=== PATIENT | male | born 1965 | race Caucasian/White ===

== ENCOUNTER 2023-04-13 14:45 | Outpatient (OUT) | payer BC, SELFPAY ==
[2023-04-13 15:21] LABS: Basophils Percent Auto 0.6 % (0.2-2.0); Eosinophils Absolute Auto 0.1 10^3/uL (0.0-0.7); Eosinophils Percent Auto 1.3 % (0.9-7.0); Hematocrit 44.2 % (42.0-54.0); Hemoglobin 14.2 g/dL (14.0-18.0); Immature Granulocytes Abs Auto 0.03 10^3/uL (0.00-0.03); Immature Granulocytes Pct Auto 0.4 % (0.0-0.5); Lymphocytes Percent Auto 27.5 % (20.5-60.0); Mean Corpuscular HGB Conc 32.1 g/dL (29.9-35.2); Mean Corpuscular Hemoglobin 30.3 pg (25.9-34.0); Mean Corpuscular Volume 94.4 fL (80.0-94.0); Mean Platelet Volume 10.1 fL (9.5-13.5); Monocytes Absolute Auto 0.5 10^3/uL (0.3-0.8); Monocytes Percent Auto 6.5 % (1.7-12.0); Neutrophils Absolute Auto 4.6 10^3/uL (1.4-6.5); Neutrophils Percent Auto 63.7 % (43.0-75.0); Platelet Count 190 10^3/uL (150-450); Red Blood Count 4.68 10^6/uL (4.70-6.10); White Blood Count 7.2 10^3/uL (4.0-11.0)
[2023-04-13 15:39] LABS: Estimated Average Glucose 217 mg/dL; Glycohemoglobin A1C 9.2 % (4.5-6.2)
[2023-04-13 15:50] LABS: Alanine Aminotransferase 56 U/L (16-63); Albumin Level 3.8 g/dL (3.4-5.0); Alkaline Phosphatase 70 U/L (46-116); Aspartate Amino Transferase 37 U/L (15-37); BUN Creatinine Ratio 11.9; Bilirubin Total 0.5 mg/dL (0.2-1.0); Calcium 9.1 mg/dL (8.5-10.1); Carbon Dioxide 28.2 mmol/L (21.0-32.0); Chloride 102 mmol/L (98-107); Chol HDL Ratio 4.5; Cholesterol 149 mg/dL (<=200); Estimated GFR (African America >60 (>=60); Estimated GFR (Non-African Ame >60 (>=60); Free T3 2.85 pg/mL (2.18-3.98); Globulin 3.8 g/dL; Glucose 132 mg/dL (74-106); HDL Cholesterol 33 mg/dL (40-60); Potassium 4.2 mmol/L (3.5-5.1); Sodium 135 mmol/L (136-145); Thyroid Stimulating Hormone 1.589 uIU/mL (0.358-3.740); Total Protein 7.6 g/dL (6.4-8.2); Triglycerides 170 mg/dL (<=150)
== END 2023-04-13 14:46 | disposition home or self-care (01) ==
LOC: LAB 14:51
PROVIDERS: PCP Family Medicine; Visit Provider Family Medicine
DX: Z00.00 Encounter for general adult medical examination without abnormal findings (principal)
CPT/HCPCS: 36415; 80053; 80061; 83036; 84436; 84443; 84481; 85025; G0103

== ENCOUNTER 2023-08-29 17:28 | Emergency (ER) | payer BC, SELFPAY ==
[2023-08-29 17:32] VITALS: BP 155/95; PULSE 106; RESP 18; TEMP 36.9; O2SAT 98; BMI 38.6
--- OUTSIDE RECORDS SUMMARY | 2023-08-29 17:44 | XMS_ITS | CCD ---
Author Name Unknown Address [address] [place] [address] Organization [facility] Care Team Providers Care Furnace Checker Name Role Phone DR JESÚS BEEBE Primary Care Unavailable CONCEPCIÓN, DR ESPINOSA Admitting Unavailable CONCEPCIÓN, DR ESPINOSA Attending Unavailable CONCEPCIÓN, DR ESPINOSA Consulting Unavailable CONCEPCIÓN, DR ESPINOSA Primary Care Unavailable CONCEPCIÓN, DR ESPINOSA Admitting Unavailable CONCEPCIÓN, DR ESPINOSA Attending Unavailable CONCEPCIÓN, DR ESPINOSA Consulting Unavailable CONCEPCIÓN, DR ESPINOSA Primary Care Unavailable FRANKY ROMERO Admitting Unavailable FRANKY ROMERO Attending Unavailable FRANKY ROMERO Consulting Unavailable Jaime Wooten Unavailable Problems Active Problems Problem Classification Problem Date Documented Da te Episodic/Chronic Other upper respiratory disease (1 source) Other specified disorders of nose and nasal sinuses; Translations: [OTH SPEC D/O NOSE NASAL SINUSES] Onset: 05-18-2021 Episodic Unclassified (3 sources) CONTACT W/AND (SUSP) EXPOS COVID-19; Translations: [CONTACT W/AND (SUSP) EXPOS COVID-19] Onset: 05-18-2021 Unclassified (1 source) OTHER SPECIFIED COUGH; Translations: [OTHER SPECIFIED COUGH] Onset: 05-18-2021 Viral infection (1 source) COVID-19; Translations: [COVID-19] Onset: 07-09-2021 Past or Other Problems Problem Classification Problem Date Documented Da te Episodic/Chronic Unclassified (1 source) CONTACT W/AND (SUSP) EXPOS COVID-19; Translations: [CONTACT W/AND (SUSP) EXPOS COVID-19] Onset: 07-07-2021 Varicose veins of lower extremity (4 sources) Venous varices; Translations: [Varicose veins of left lower extremity with other complications] Onset: 03-12-2021 Resolved: 03-12-2021 Episodic Results Test Name Value Interpretation Reference Range Facility Covid-19 PCR (CVDTB)on 06-14 SARS-CoV-2 (COVID-19) RNA ABEL+probe Ql (Unsp spec) Detected Critically abnormal NOT DETECTED [facility] Comment on above: Result Comment: This test is not yet approved or cleared by the [place] FDA. When there are no FDA-approved or cleared tests available, and other criteria are met, FDA can make tests available under an emergency access mechanism called an Emergency Use Authorization (EUA). The EUA for this test is supported by the [place] of Health and Human Service's (HHS's) declaration that circumstances exist to justify the emergency use of in vitro diagnostics for the detection and/or diagnosis of the virus that causes COVID-19. This EUA will remain in effect (meaning this test can be used) for the duration of the COVID-19 declaration justifying emergency of IVDs, unless it is terminated or revoked by FDA (after which the test may no longer be used). Performed By: #### C VDTB #### [facility] [address] [place] [address] Dr. Franky Olguin Covid-19 PCR (CVDTB)on SARS-CoV-2 (COVID-19) RNA ABEL+probe Ql (Unsp spec) Not detected Normal NOT DETECTED [facility] Comment on above: Result Comment: This test is not yet approved or cleared by the [place] FDA. When there are no FDA-approved or cleared tests available, and other criteria are met, FDA can make tests available under an emergency access mechanism called an Emergency Use Authorization (EUA). The EUA for this test is supported by the [place] of Health and Human Service's (HHS's) declaration that circumstances exist to justify the emergency use of in vitro diagnostics for the detection and/or diagnosis of the virus that causes COVID-19. This EUA will remain in effect (meaning this test can be used) for the duration of the COVID-19 declaration justifying emergency of IVDs, unless it is terminated or revoked by FDA (after which the test may no longer be used). When diagnostic testing is negative, the possibility of a false negative should be considered in the context of a patient's recent exposures and the presence of clinical signs and symptoms consistent with SARS-CoV-2. Performed By: #### C VDTB #### [facility] [address] [place] [address] Dr. Franky Olguin CBC AUTO DIFFon 03-25-2021 BASO # 0.1 103/ul Normal 0.0-0.1 [facility] Comment on above: Performed By: #### C BC #### [facility] [address] [place] [address] Dr. Franky Olguin Basophils/100 WBC (Bld) 0.8 % Normal 0.2-2.0 [facility] Comment on above: Performed By: #### C BC #### [facility] [address] [place] [address] Dr. Franky Olguin EO # 0.2 103/ul Normal 0.0-0.7 [facility] Comment on above: Performed By: #### C BC #### [facility] [address] [place] [address] Dr. Franky Olguin Eosinophils/100 WBC (Bld) 2.3 % Normal 0.9-7.0 [facility] Comment on above: Performed By: #### C BC #### [facility] [address] [place] [address] Dr. Franky Olguin Erythrocyte distribution width (RBC) [Ratio] 13.0 % Normal 11.0-15.0 [facility] Comment on above: Performed By: #### C BC #### [facility] [address] [place] [address] Dr. Franky Olguin Hematocrit (Bld) [Volume fraction] 44.9 % Normal 42.0-54.0 [facility] Comment on above: Performed By: #### C BC #### [facility] [address] [place] [address] Dr. Franky Olguin Hemoglobin (Bld) [Mass/Vol] 14.5 g/dL Normal 14.0-18.0 [facility] Comment on above: Performed By: #### C BC #### [facility] [address] [place] [address] Dr. Franky Olguin IG # 0.03 10e3/ul Normal 0.00-0.03 [facility] Comment on above: Performed By: #### C BC #### [facility] [address] [place] [address] Dr. Franky Olguin IG % 0.4 % Normal 0.0-0.5 [facility] Comment on above: Performed By: #### C BC #### [facility] [address] [place] [address] Dr. Franky Olguin LYMPH # 2.3 103/ul Normal 1.2-3.8 [facility] Comment on above: Performed By: #### C BC #### [facility] [address] [place] [address] Dr. Franky Olguin Lymphocytes/100 WBC (Bld) 30.3 % Normal 20.5-60.0 [facility] Comment on above: Performed By: #### C BC #### [facility] [address] [place] [address] Dr. Franky Olguin MANUAL DIFF REQ NO Normal [facility] Comment on above: Performed By: #### C BC #### [facility] [address] [place] [address] Dr. Franky Olguin MCH (RBC) [Entitic mass] 30.5 pg Normal 25.9-34.0 [facility] Comment on above: Performed By: #### C BC #### [facility] [address] [place] [address] Dr. Franky Olguin MCHC (RBC) [Mass/Vol] 32.3 g/dL Normal 29.9-35.2 [facility] Comment on above: Performed By: #### C BC #### [facility] [address] [place] [address] Dr. Franky Olguin MCV (RBC) [Entitic vol] 94.5 fL Critically high 80.0-94.0 [facility] Comment on above: Performed By: #### C BC #### [facility] [address] [place] [address] Dr. Franky Olguin MONO # 0.6 103/ul Normal 0.3-0.8 [facility] Comment on above: Performed By: #### C BC #### [facility] [address] [place] [address] Dr. Franky Olguin Monocytes/100 WBC (Bld) 8.2 % Normal 1.7-12.0 [facility] Comment on above: Performed By: #### C BC #### [facility] [address] [place] [address] Dr. Franky Olguin NEUT # 4.5 103/ul Normal 1.4-6.5 [facility] Comment on above: Performed By: #### C BC #### [facility] [address] [place] [address] Dr. Franky Olguin Neutrophils/100 WBC (Bld) 58.0 % Normal 43.0-75.0 [facility] Comment on above: Performed By: #### C BC #### [facility] [address] [place] [address] Dr. Franky Olguin Platelet mean volume (Bld) [Entitic vol] 9.9 fL Normal 9.5-13.5 [facility] Comment on above: Performed By: #### C BC #### [facility] [address] [place] [address] Dr. Franky Olguin PLT 199 103/ul Normal 150-450 [facility] Comment on above: Performed By: #### C BC #### [facility] [address] [place] [address] Dr. Franky Olguin RBC 4.75 106/ul Normal 4.70-6.10 [facility] Comment on above: Performed By: #### C BC #### [facility] [address] [place] [address] Dr. Franky Olguin WBC 7.7 103/ul Normal 4.0-11.0 [facility] Comment on above: Performed By: #### C BC #### [facility] [address] [place] [address] Dr. Franky Olguin FREE THYROXINE INDEX T7on FTI 1.92 Normal [facility] Comment on above: Performed By: #### L IPID, CMP, T7, TSH #### [facility] [address] [address] [address] Franky Olguin T3U 30.0 % Normal 23.5-40.5 [facility] Comment on above: Performed By: #### L IPID, CMP, T7, TSH #### [facility] [address] [address] [address] Franky Olguin T4 [Mass/Vol] 6.40 ug/dL Normal 5.53-11.00 [facility] Comment on above: Performed By: #### L IPID, CMP, T7, TSH #### [facility] [address] [address] [address] Franky Olguin GLYCOHEMOGLOBIN A1Con 2020 ADA RECOMMENDATION ADA THERAPEUTIC TARGET 6.0 - 7.0 ACTION SUGGESTED > 7.0 Normal [facility] Comment on above: Performed By: #### A 1C #### [facility] [address] [address] [address] Franky Olguin Glucose [Mass/Vol] 151 mg/dL Normal [facility] Comment on above: Performed By: #### A 1C #### [facility] [address] [address] [address] Franky Olguin HbA1c (Bld) [Mass fraction] 6.9 % Critically high <=6.0 [facility] Comment on above: Performed By: #### A 1C #### [facility] [address] [address] [address] Franky Olguin LIPID PROFILEon 03-25-2021 CHOL-HDL RATIO NORM SEE BELOW Normal [facility] Comment on above: Result Comment: 3.3 - 4.4 LOW RISK 4.4 - 7.1 AVERAGE RISK 7.1 - 11.0 MODERATE RISK >11.0 HIGH RISK Performed By: #### L IPID, CMP, T7, TSH #### [facility] [address] [address] [address] Franky Olguin Cholesterol [Mass/Vol] 167 mg/dL Normal <=200 [facility] Comment on above: Performed By: #### L IPID, CMP, T7, TSH #### [facility] [address] [address] [address] Franky Olguin Cholesterol in HDL [Mass/Vol] 37 mg/dL Normal [facility] Comment on above: Performed By: #### L IPID, CMP, T7, TSH #### [facility] [address] [address] [address] Franky Olguin Cholesterol in LDL [Mass/Vol] 93.4 mg/dL Normal [facility] Comment on above: Performed By: #### L IPID, CMP, T7, TSH #### [facility] [address] [address] [address] Franky Olguin Cholesterol.total/Cho lesterol in HDL [Mass ratio] 4.5 {ratio} Normal [facility] Comment on above: Performed By: #### L IPID, CMP, T7, TSH #### [facility] [address] [address] [address] Franky Olguin HDL NORMAL > or = 60 mg/dl - LOW CARDIOVASCULAR RISK <40 mg/dl - HIGH CARDIOVASCULAR RISK Normal [facility] Comment on above: Performed By: #### L IPID, CMP, T7, TSH #### [facility] [address] [address] [address] Franky Olguin LDL CALC NORMAL SEE BELOW Normal [facility] Comment on above: Result Comment: <100 mg/dl OPTIMAL 100 - 129 mg/dl NEAR OR ABOVE OPTIMAL 130 - 159 mg/dl BORDERLINE HIGH 160 - 189 mg/dl HIGH >190 mg/dl VERY HIGH Performed By: #### L IPID, CMP, T7, TSH #### [facility] [address] [address] [address] Franky Olguin Triglyceride [Mass/Vol] 183 mg/dL Critically high <=150 [facility] Comment on above: Performed By: #### L IPID, CMP, T7, TSH #### [facility] [address] [address] [address] Franky Olguin VLDL CALC 36.6 mg/dL Normal [facility] Comment on above: Performed By: #### L IPID, CMP, T7, TSH #### [facility] [address] [place] [address] Dr. Franky Olguin PROF 14(COMP METB)on 021 Albumin [Mass/Vol] 3.9 g/dL Normal 3.5-5.0 [facility] Comment on above: Performed By: #### L IPID, CMP, T7, TSH #### [facility] [address] [place] [address] Dr. Franky Olguin Albumin/Globulin [Mass ratio] 1.0 {ratio} Normal [facility] Comment on above: Performed By: #### L IPID, CMP, T7, TSH #### [facility] [address] [place] [address] Dr. Franky Olguin ALP [Catalytic activity/Vol] 68 U/L Normal 38-126 [facility] Comment on above: Performed By: #### L IPID, CMP, T7, TSH #### [facility] [address] [place] [address] Dr. Franky Olguin ALT [Catalytic activity/Vol] 89 U/L Critically high 21-72 [facility] Comment on above: Performed By: #### L IPID, CMP, T7, TSH #### [facility] [address] [place] [address] Dr. Franky Olguin Anion gap [Moles/Vol] 13.1 mmol/L Normal [facility] Comment on above: Performed By: #### L IPID, CMP, T7, TSH #### [facility] [address] [place] [address] Dr. Franky Olguin AST [Catalytic activity/Vol] 56 U/L Normal 17-59 [facility] Comment on above: Performed By: #### L IPID, CMP, T7, TSH #### [facility] [address] [place] [address] Dr. Franky Olguin Bilirubin [Mass/Vol] 0.7 mg/dL Normal 0.2-1.3 [facility] Comment on above: Performed By: #### L IPID, CMP, T7, TSH #### [facility] [address] [place] [address] Dr. Franky Olguin Calcium [Mass/Vol] 9.5 mg/dL Normal 8.4-10.2 [facility] Comment on above: Performed By: #### L IPID, CMP, T7, TSH #### [facility] [address] [address] [address] Franky Olguin Chloride [Moles/Vol] 104 mmol/L Normal 98-107 [facility] Comment on above: Performed By: #### L IPID, CMP, T7, TSH #### [facility] [address] [address] [address] Franky Olguin CO2 [Moles/Vol] 25.1 mmol/L Normal 22.0-30.0 [facility] Comment on above: Performed By: #### L IPID, CMP, T7, TSH #### [facility] [address] [place] [address] Dr. Franky Olguin Creatinine [Mass/Vol] 1.19 mg/dL Normal 0.66-1.25 [facility] Comment on above: Performed By: #### L IPID, CMP, T7, TSH #### [facility] [address] [place] [address] Dr. Franky Olguin EGFR-AF MONEGASQUE >60 Normal >=60 [facility] Comment on above: Performed By: #### L IPID, CMP, T7, TSH #### [facility] [address] [place] [address] Dr. Franky Olguin EGFR-NON AF MONEGASQUE >60 Normal >=60 [facility] Comment on above: Performed By: #### L IPID, CMP, T7, TSH #### [facility] [address] [address] [address] Franky Olguin Globulin (S) [Mass/Vol] 4.0 g/dL Normal [facility] Comment on above: Performed By: #### L IPID, CMP, T7, TSH #### [facility] [address] [address] [address] Franky Olguin Glucose [Mass/Vol] 133 mg/dL Critically high 74-106 [facility] Comment on above: Performed By: #### L IPID, CMP, T7, TSH #### [facility] [address] [place] [address] Dr. Franky Olguin Potassium [Moles/Vol] 4.2 mmol/L Normal 3.4-5.0 [facility] Comment on above: Performed By: #### L IPID, CMP, T7, TSH #### [facility] [address] [place] [address] Dr. Franky Olguin Protein [Mass/Vol] 7.9 g/dL Normal 6.1-8.2 [facility] Comment on above: Performed By: #### L IPID, CMP, T7, TSH #### [facility] [address] [place] [address] Dr. Franky Olguin Sodium [Moles/Vol] 138 mmol/L Normal 137-145 [facility] Comment on above: Performed By: #### L IPID, CMP, T7, TSH #### [facility] [address] [place] [address] Dr. Franky Olguin Urea nitrogen [Mass/Vol] 19.0 mg/dL Normal 9.0-20.0 [facility] Comment on above: Performed By: #### L IPID, CMP, T7, TSH #### [facility] [address] [place] [address] Dr. Franky Olguin Urea nitrogen/Creatinine [Mass ratio] 16.0 mg/mg Normal [facility] Comment on above: Performed By: #### L IPID, CMP, T7, TSH #### [facility] [address] [place] [address] Dr. Franky Olguin TSHon 03-25-2021 TSH 4.571 uIU/mL Normal 0.470-4.680 [facility] Comment on above: Performed By: #### L IPID, CMP, T7, TSH #### [facility] [address] [place] [address] Dr. Franky Olguin TSH RANGE SEE BELOW Normal [facility] Comment on above: Result Comment: <0.3 4 UIU/ml HYPERTHYROID 0.34-5.60 UIU/ml EUTHYROID >5.60 UIU/ml HYPOTHYROID Performed By: #### L IPID, CMP, T7, TSH #### [facility] [address] [address] [address] Franky Olguin US venous duplex LE LTon US venous duplex LE LT [facility] [place] [address] [place], [place] [id number] Ultrasound Report Signed Patient: Holden Askew MR#: [id number] 98 : 1965 Acct:[id number] Age/Sex: 56 / M ADM Date: 03/12/21 Loc: [facility] ER Room: Type: [facility] Attending Dr: Jaime Wooten MD Ordering Provider: Jaime Wooten MD Date of Service: 03/12/21 US/US venous duplex LE LT: LLE FULL FUNCTION I83.812 Copies to: Jaime Wooten MD LEFT LOWER EXTREMITY VENOUS DUPLEX INDICATION: Symptomatic varicose veins Unilateral left lower extremity venous duplex Doppler study was obtained utilizing B-mode, color- flow and spectral Doppler. FINDINGS: The left common femoral, femoral, and popliteal veins showed adequate compressibility, color-flow and augmentation. The left posterior tibial and peroneal veins were compressible, as well as proximal greater saphenous vein. The contralateral right common femoral vein was compressible with color-flow and augmentation. US/US venous duplex LE LT IMPRESSION: NO EVIDENCE OF DEEP VENOUS THROMBOSIS IN THE LEFT LOWER EXTREMITY. NO SUPERFICIAL THROMBOPHLEBITIS WAS NOTED. No reflux was identified in the left lower extremity. There was some thrombus identified in the lesser saphenous vein proximally to distally in the calf. The left greater saphenous vein was patent from the groin to the ankle. Impression dictated by: Jaime Wooten MD03/18/2021 3:20 PM Dictation Location: [place] [address] Tech: Kamala Wells Transcribed By: ABRAHAN 03/18/21 1520 Dictated By: Jaime Wooten MD 03/18/21 1518 Signed By: 03/18/21 1520 [facility] Auth for Release of Medical Recordson 02-02-2021 Auth for Release of Medical Records [id number] 1.00CD:127 Normal [facility] Formson 01-28-2021 Forms [id number] #1.00CD:127 Normal [facility] [employer] 01-21-2021 Forms [id number] #1.00CD:127 Normal [facility] Screenson 12-23-2020 Screens [id number] #1.00CD:127 Normal [facility] Screens [id number] #1.00CD:127 Normal [facility] Ambulatory Clinical Summaryo 12-18-2020 Ambulatory Clinical Summary {[id number] Normal [facility] [employer] 12-18-2020 Forms [id number] #1.00CD:127 Normal [facility] General Surgery Office/Clini c Noteon 12-17-2020 General Surgery Office/Clinic Note HPI Staff New pt, self ref (saw Dr. Hunter in the past ) sima leg pain left leg pain worse needs hose rx Dr. Jones did surgery for venous malformation in 1989's History of Present Illness Mr. Askew comes in for evaluation of recurrent varicose veins mainly in his left ankle area. He is complaining of increasing pain and swelling in the left leg/mainly ankle, which is worse as the day goes along. 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 He has consistently worn support stockings since about 1989 when he had a venous malformation of the left ankle area resected by Dr. Jones. He has been using [id number] hose for several years now and he thinks these do not work as well as the prescription hose I gave him when I saw him back in 2006. He has no history of deep vein thrombosis or thrombophlebitis. A duplex scan from 2006 showed no evidence of DVT. There were superficial varices around the left ankle noted to be coming from the anterior tibial vein. The greater saphenous vein was competent. Review of Systems PHQ Score Initial Depression Screen Score: 0 ROS - Provider Constitutional: no fever, no sweats, no weight loss. Eyes: no glasses, no blurred vision, no visual loss. ENMT: no dentures, no hoarseness, no swallowing difficulties, no hearing loss, no ear infection(s), no nose bleeds. Cardiovascular: normal blood pressure, no chest pain, regular heartbeat, no heart murmur. Respiratory: no shortness of breath, no cough, no asthma, no wheezing. Gastrointestinal: no nausea, no vomiting, no diarrhea, no constipation, no blood in stool, no change in bowel habits, no abdominal pain, no hepatitis. Genitourinary: no kidney stones, no urine infection, no dysuria. Musculoskeletal: yes pain, yes weakness. Skin: no changing moles, no rash, no skin lumps. Neurologic: no seizures, no epilepsy, no headache. Psychiatric: no emotional or psychiatric problem. Endocrine: no thyroid problems no diabetes Heme/Lymph: no bleeding problems, no anemia, no blood clots, no transfusions. Allergy/Immunologic: no swollen lymph nodes/glands, no IV drug abuse. Other: Additional ROS info: Except as noted in the above Review of Systems and in the History of Present Illness, all other systems have been reviewed and are negative or noncontributory. Physical Exam Vitals & Measurements T: 36.1 ?C (Temporal Artery) HR: 103(Peripheral) RR: 20 BP: 138/99 SpO2: 98% HT: 187.96 cm HT: 188.0 cm WT: 140.9 kg WT: 140.9 kg BMI: 39.88 General: Alert and oriented, no acute distress Eye: PERRLA. Extraocular movements are intact. HENT: Normocephalic. Normal hearing. Neck: Supple. Nontender. No lymphadenopathy. No carotid bruits. Respiratory: Lungs clear bilaterally. Nonlabored respirations. Breath sounds equal. Cardiovascular: Normal rate. Regular rhythm. No murmur. Vascular: See scanned vascular exam sheet and photographs. Bulging varicose veins up to 1.5 cm in the posterior left leg. There is also a large soft mass of the left anterior lateral ankle about 3 x 4 cm consistent with a large venous varix/malformation. This goes away with being in the supine position. It is nontender and nonerythematous. There are no stasis changes of the medial ankle. There is scarring consistent with his past history of surgery in the anterior lateral left ankle. There is mild edema of the left ankle as compared to the right. Pedal pulses are intact bilaterally. There is good hair growth on the toes bilaterally. Musculoskeletal: Normal range of motion. Normal gait. Integumentary: Warm and dry. Neurologic: Alert and oriented. No focal deficits. Cognition and speech: Oriented. Speech clear and coherent. Functional cognition intact. Psychiatric: Cooperative. Appropriate mood and affect. Normal judgment. Assessment/Plan 1. 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 Conservative treatment was recommended, which includes elevation of the lower extremities when possible, avoidance of prolonged standing, daily exercise, weight loss if indicated, and use of a prescription pressure gradient support stocking, not only to alleviate symptoms, but also to help prevent further formation of varicosities. I did recommend a venous insufficiency study of the left lower extremity. I told the patient I thought his symptoms would be progressive and that surgery would likely be indicated either as staged combination of laser surgery and phlebectomy/resectio n of the venous malformation, or phlebectomy and resection of the venous malformation initially. At present the patient would like to wait on the study and possible treatment and just go into the support hose. I will keep him off work for a few days because of the aching and swelling he is having in the ankle and try to get him in prescription hose as soon as possible. I did also tel (more content not included)... Normal [facility] Comment on above: Result Comment: Elec tronically Signed By: ERICA CARRERA, Cecilia Jeffrey\.waqas\Date and Time Signed: 12/17/20 13:46 EDT Patient Correspondenceon Patient Correspondence [id number] #[id number]:127 Normal [facility] Retail - Clinical Noteon Retail - Clinical Note [id number] #[id number]:127 Normal [facility] Vital Signs Date Time Vital Sign Value Performing Clinician Facility 03-12-2021 13:30-0400 Body height 185.42 cm Jaime Wooten Other [facility] Other 03-12-2021 13:30-0400 Body mass index (BMI) [Ratio] 40.63 kg/m2 Jaime Wooten Other [facility] Other 03-12-2021 13:30-0400 Body weight 139.71 kg Jaime Wooten Other [facility] Other 03-12-2021 13:30-0400 Diastolic blood pressure 118 mm[Hg] Jaime Wooten Other [facility] Other 03-12-2021 13:30-0400 Systolic blood pressure 161 mm[Hg] Jaime Wooten Other [facility] Other Encounters Encounter Date Encounter Type Care Provider Facility Start: 07-07-2021 End: 07-07-[address] JESÚS BEEBE Facility:[facility] Start: 05-13-2021 End: 05-13-[address] JESÚS BEEBE Facility:[facility] Start: 04-03-2021 Encounter for genera l adult medical examination without abnormal findings DR JESÚS BEEBE [facility] Start: 03-25-2021 End: 03-26-[address] JESÚS BEEBE Facility:[facility] Start: 03-25-2021 End: 03-26-2021 Encounter for general adult medical examination without abnormal findings DR JESÚS BEEBE Facility:[facility] Start: 03-12-2021 Office outpatient vi sit 15 minutes Jaime BERNSTEIN Vascular Surgery Procedures Date Procedure Procedure Detail Performing Clinician Start: 03-25-[address] GRETCHEN BEEBE Comment on above: Performed By: #### P [facility] #### [facility] [address] [place] [address] Dr. Franky Olguin Payers Date Payer Category Payer Unknown [id number] 1965 Unknown [id number] [id number] 1965 Unknown [id number] [id number] [id number] 1959 Unknown [id number] Social History Date Type Detail Facility Sex Assigned At [facility] Other Evaluation note 03-12-2021 Note Date & Type Note Facility 03-12-2021 Evaluation note Encounter Date Diagnosis Assessment Notes Feb, Symptomatic varicose veins of left lower extremity (ICD-10 - I83.892) We reviewed the patient's full functional venous duplex study with him. There is no evidence of any DVT. The patient does not have any reflux disease whatsoever in the bilateral lower extremity veins. Without a doubt this patient does have symptomatic varicose veins. They should be treated with weight loss exercise and compression stockings. Moisturizer therapy would also be good. We can also consider consider sclerotherapy injections in the future. I do not normally ever proceed with [facility] paperwork for symptomatic varicose veins without any venous hypertension and/or reflux. There are 70 million Americans who suffer from this. I recommend this patient seek out his PCP for advice with regards to [place] paperwork. I will be happy to see the patient in the future for any consideration for sclerotherapy if his symptoms progress and/or his varicosities merit this approach. Weight loss would also benefit this patient as he is a BMI of 40. Weight loss would significantly improve leg symptoms in this patient. Feb, Varicose veins of left lower extremity with pain (ICD-10 - I83.812) [facility] Other History general Narrative - Reported Note Date & Type Note Facility History general Narrative - Reported Type Medical History Varicose veins Surgical History vein procedure (Dr. Jones) [facility] Other Summary Purpose Family History No Family History Records FoundNo Family History Records FoundNo Family History Records Found Advance Directives No Advanced Directives Records FoundNo Advanced Directives Records FoundNo Advanced Directives Records Found Additional Source Comments (unrecognized sect ion and content) No Status Records FoundNo Status Records FoundNo Status Records Found INFORMATION SOURCE (unrecogn ized section and content) DATE CREATED AUTHOR 02/03/2021 Derek Shepherd [facility] DATE CREATED AUTHOR AUTHOR'S ORGANIZ ATION 07/07/2021 [facility] DATE CREATED AUTHOR AUTHOR'S ORGANIZ ATION 07/10/2021 [facility] REASON FOR VISIT (unrecogniz ed section and content) VASC 1 WK FOLLOW UP; FULL FU NCTIONAL VENOUS DUPLEX LEFT LEG 12P FOR RECORDS PERTAINING TO PATIENTS WHO ARE OR HAVE BEEN ENROLLED IN A CHEMICAL DEPENDENCY/SUBSTANCEABUSE PROGRAM, SOME INFORMATION MAY BE OMITTED. This clinical summary was aggregated from multiple sources. Caution should be exercised in using it in the provision of clinical care. This summary normalizes information from multiple sources, and as a consequence, information in this document may materially change the coding, format and clinical context of patient data. In addition, data may be omitted in some cases. CLINICAL DECISIONS SHOULD BE BASED ON THE PRIMARY CLINICAL RECORDS. [facility]. provides no warranty or guarantee of the accuracy or completeness of information in this document.
--- NOTE | 2023-08-29 18:03 | ED.SKABFB1 ---
Documented by User: SEAN Rivera 08/29/23 18:22 HPI - Skin/Abscess/Foreign Bdy General Chief complaint: Skin/Abscess/Foreign Body Stated complaint: Abscess, Blood in Stool Time Seen by Provider: 08/29/23 17:45 Source: patient Mode of arrival: walk-in Limitations: no limitations History of Present Illness HPI narrative: 58-year-old male presents to the emergency department with complaint of swelling, itching to his rectal area. Onset 2 days ago. Has been applying Preparation H without improvement. He denies any pain, tenderness, bleeding, fever, chills, drainage. Quality:?swelling, itchy Severity:?mild Timing:?2 days, constant Context: Normal setting and activity? Modifying factors:?as above Associated symptoms: itching Related Data Home Medications Medication Instructions Recorded Confirmed lisinopril 20 mg tablet 20 mg PO DAILY 08/29/23 08/29/23 metformin 500 mg tablet 500 mg PO QID 08/29/23 08/29/23 Previous Rx's Medication Instructions Recorded hydrocortisone acetate 25 mg 25 mg DC BID PRN hemorrhoids 2 08/29/23 rectal suppository (Anusol-HC) weeks #12 ea Allergies Allergy/AdvReac Type Severity Reaction Status Date / Time No Known Drug Allergies Allergy Verified 08/29/23 17:32 Review of Systems ROS Constitutional Denies: fever or chills Gastrointestinal Reports: rectal swelling and rectal itching; Denies: abdominal pain, nausea, vomiting, diarrhea, constipation or blood in stool Musculoskeletal Denies: back pain Integumentary/Breast Reports: [facility] Medical History (Updated 08/29/23 @ 18:09 by SEAN Rivera) HTN (hypertension) ?I10 - Essential (primary) hypertension (ICD-10) Social History (Updated 08/29/23 @ 18:10 by SEAN Rivera) Are you now , , , , never or living with a partner: Exam Constitutional Vital Signs, click to edit/add: Last Vital Signs Temp 98.5 F 08/29/23 17:32 Pulse 106 H 08/29/23 17:32 Resp 18 08/29/23 17:32 BP 155/95 H 08/29/23 17:32 Pulse Ox 98 08/29/23 17:32 Documenting provider has reviewed patient's vital signs: yes Common normals: no apparent distress, oriented x3, alert and well nourished HENAL Common normals: normocephalic and head/scalp atraumatic GI Common normals: soft to palpation and non-tender Rectal Exam - Male: normal sphincter tone and hemorrhoids Other: 8 o'clock position. Mainly flesh colored with punctate, purplish center. Nontender. No redness. Hemorrhoid is soft, external, nonreducible Neuro Common normals: oriented x3 Sensorium/orientation: awake and alert Gait (neuro): normal gait Psych Common normals: mental status grossly normal, thought process normal and affect normal Course Vital Signs Vital signs: Vital Signs Temperature 98.5 F 08/29/23 17:32 Pulse Rate 106 H 08/29/23 17:32 Respiratory Rate 18 08/29/23 17:32 Blood Pressure 155/95 H 08/29/23 17:32 Pulse Oximetry 98 08/29/23 17:32 Temperature 98.5 F 08/29/23 17:32 Pulse Rate 106 H 08/29/23 17:32 Respiratory Rate 18 08/29/23 17:32 Blood Pressure 155/95 H 08/29/23 17:32 Pulse Oximetry 98 08/29/23 17:32 MDM - Skin/Abscess/Foreign Bdy MDM Narrative Medical decision making narrative: This a pleasant 58-year-old male who presents to the emergency department complaint of swelling and itching to his rectal region. Onset about 2 days ago. Has been applying Preparation H without improvement. He denies any pain, bleeding, fever, chills. On arrival, afebrile, vital signs are stable On exam, nontoxic, well-appearing patient in no distress. Patient has an external hemorrhoid at about the 8 o'clock position. Mainly flesh-colored, swollen, soft. There is centralized, purpleish area. There is no tenderness, bleeding, firmness to the hemorrhoid. It is not reducible. Favor external hemorrhoid. Thrombosed hemorrhoid less likely based on physical exam Rectal bleeding less likely based on physical exam Disposition ? The patient was discharged. Plan: Patient will be discharged to home. Condition at time of disposition: stable Prescription sent to his pharmacy for Anusol Advised to follow up with Dr. Tucker, surgery. Address and phone number placed on discharge paperwork. Advised to return for any worsening and/or development of new, concerning signs or symptoms PLEASE NOTE: Portions of the medical record may have been produced using electronic workday consultant and may contain errors with respect to translation of words which may not have been identified prior to finalization of the chart. Medical Records Attestation: I reviewed the patient's medical records. Discharge Plan Discharge Stand Alone Forms: Portal Instructions Chief Complaint: Skin/Abscess/Foreign Body Clinical Impression: External hemorrhoid, Rectal itching Patient Disposition: Home, Self-Care Time of Disposition Decision: 17:57 Condition: Good Mode of Transportation: Private Vehicle Prescriptions / Home Meds: New hydrocortisone acetate [Anusol-HC] 25 mg suppository 25 mg DC BID PRN (Reason: hemorrhoids) 14 Days Qty: 12 0RF No Action lisinopril 20 mg tablet 20 mg PO DAILY metformin 500 mg tablet 500 mg PO QID Instructions: Hemorrhoids (ED) Referrals: Emanuel Tucker MD [Physician] - 1 week Discharge Date/Time: 08/29/23 18:20 Documented by User: Daniel Dumont MD 08/29/23 20:09 HPI - Skin/Abscess/Foreign Bdy General Chief complaint: Skin/Abscess/Foreign Body Stated complaint: Abscess, Blood in Stool Time Seen by Provider: 08/29/23 17:45 Related Data Home Medications Medication Instructions Recorded Confirmed lisinopril 20 mg tablet 20 mg PO DAILY 08/29/23 08/29/23 metformin 500 mg tablet 500 mg PO QID 08/29/23 08/29/23 Previous Rx's Medication Instructions Recorded hydrocortisone acetate 25 mg 25 mg DC BID PRN hemorrhoids 2 08/29/23 rectal suppository (Anusol-HC) weeks #12 ea Allergies Allergy/AdvReac Type Severity Reaction Status Date / Time No Known Drug Allergies Allergy Verified 08/29/23 17:32 [facility] Medical History (Updated 08/29/23 @ 18:09 by SEAN Rivera) HTN (hypertension) ?I10 - Essential (primary) hypertension (ICD-10) Social History (Updated 08/29/23 @ 18:10 by SEAN Rivera) Are you now , , , , never or living with a partner: Exam Constitutional Vital Signs, click to edit/add: Last Vital Signs Temp 98.5 F 08/29/23 17:32 Pulse 106 H 08/29/23 17:32 Resp 18 08/29/23 17:32 BP 155/95 H 08/29/23 17:32 Pulse Ox 98 08/29/23 17:32 Course Vital Signs Vital signs: Vital Signs Temperature 98.5 F 08/29/23 17:32 Pulse Rate 106 H 08/29/23 17:32 Respiratory Rate 18 08/29/23 17:32 Blood Pressure 155/95 H 08/29/23 17:32 Pulse Oximetry 98 08/29/23 17:32 Temperature 98.5 F 08/29/23 17:32 Pulse Rate 106 H 08/29/23 17:32 Respiratory Rate 18 08/29/23 17:32 Blood Pressure 155/95 H 08/29/23 17:32 Pulse Oximetry 98 08/29/23 17:32 MDM - Skin/Abscess/Foreign Bdy MDM Narrative Medical decision making narrative: This a pleasant 58-year-old male who presents to the emergency department complaint of swelling and itching to his rectal region. Onset about 2 days ago. Has been applying Preparation H without improvement. He denies any pain, bleeding, fever, chills. On arrival, afebrile, vital signs are stable On exam, nontoxic, well-appearing patient in no distress. Patient has an external hemorrhoid at about the 8 o'clock position. Mainly flesh-colored, swollen, soft. There is centralized, purpleish area. There is no tenderness, bleeding, firmness to the hemorrhoid. It is not reducible. Favor external hemorrhoid. Thrombosed hemorrhoid less likely based on physical exam Rectal bleeding less likely based on physical exam Disposition ? The patient was discharged. Plan: Patient will be discharged to home. Condition at time of disposition: stable Prescription sent to his pharmacy for Anusol Advised to follow up with Dr. Tucker, surgery. Address and phone number placed on discharge paperwork. Advised to return for any worsening and/or development of new, concerning signs or symptoms PLEASE NOTE: Portions of the medical record may have been produced using electronic workday consultant and may contain errors with respect to translation of words which may not have been identified prior to finalization of the chart. I, Dr Dumont, have reviewed the above progress note and course of action in the ER; agree with the above. I have gone over history and physical, and discussed disposition and treatment plan with the patient. Discharge Plan Discharge Stand Alone Forms: Portal Instructions Chief Complaint: Skin/Abscess/Foreign Body Clinical Impression: External hemorrhoid, Rectal itching Patient Disposition: Home, Self-Care Time of Disposition Decision: 17:57 Condition: Good Mode of Transportation: Private Vehicle Prescriptions / Home Meds: New hydrocortisone acetate [Anusol-HC] 25 mg suppository 25 mg DC BID PRN (Reason: hemorrhoids) 14 Days Qty: 12 0RF No Action lisinopril 20 mg tablet 20 mg PO DAILY metformin 500 mg tablet 500 mg PO QID Instructions: Hemorrhoids (ED) Referrals: Emanuel Tucker MD [Physician] - 1 week Discharge Date/Time: 08/29/23 18:20
== END 2023-08-29 18:20 | disposition home or self-care (01) ==
PROVIDERS: Emergency Provider Emergency Medicine; PCP Family Medicine
DX: K64.4 Residual hemorrhoidal skin tags (principal); L29.0 Pruritus ani; Z79.899 Other long term (current) drug therapy; Z79.84 Long term (current) use of oral hypoglycemic drugs; I10 Essential (primary) hypertension
CPT/HCPCS: 99283

== ENCOUNTER 2023-12-12 10:03 | Outpatient (OUT) | payer BC, SELFPAY ==
--- OUTSIDE RECORDS SUMMARY | 2023-12-12 10:28 | XMS_ITS | CCD ---
Author Organization [facility] Care Team Providers Care Last Pattern Grader Name Role Phone DR JESÚS BEEBE Primary Care Unavailable DR JESÚS BEEBE Admitting Unavailable CONCEPCIÓN, DR ESPINOSA Attending Unavailable CONCEPCIÓN, DR ESPINOSA Consulting Unavailable DR JESÚS BEEBE Primary Care Unavailable DR JESÚS BEEBE Admitting Unavailable CONCEPCIÓN, DR ESPINOSA Attending Unavailable CONCEPCIÓN, DR ESPINOSA Consulting Unavailable DR JESÚS BEEBE Primary Care Unavailable FRANKY ROMERO Admitting Unavailable [...] spec) Detected Critically abnormal NOT DETECTED [facility] Comment on above: Result Comment: This test is not yet approved or cleared by the [place] FDA. When there are no FDA-approved or cleared tests available, and other criteria are met, FDA can make tests available under an emergency access mechanism called an Emergency Use Authorization (EUA). The EUA for this test is supported by the Auto Body Detailer of Health and Human Service's (HHS's) declaration [...] longer be used). Performed By: #### C VDTBH #### [facility] [address] [address] [address] Franky Olguin [facility]on SARS-CoV-2 (COVID-19) RNA ABEL+probe Ql (Unsp spec) Not detected Normal NOT DETECTED [facility] Comment on above: Result Comment: This test is not yet approved or cleared by the [place] FDA. When there are no FDA-approved or cleared tests available, and other criteria are met, FDA can make tests available under an emergency access mechanism called an Emergency Use Authorization (EUA). The EUA for this test is supported by the [place] of Health and Human Service's (HHS's) declaration [...] consistent with SARS-CoV-2. Performed By: #### C VDTBH #### [facility] [address] [place] [address] Dr. Franky Olguin CBC AUTO DIFFon 03-25-2021 BASO # 0.1 103/ul Normal 0.0-0.1 [facility] Comment on above: Performed By: #### C BC #### [facility] [address] [place] [address] Dr. Franky Olguni Basophils/100 WBC (Bld) 0.8 % Normal 0.2-2.0 [facility] Comment on above: Performed By: #### C BC #### [facility] [address] [place] [address] Dr. Franky Olguin EO # 0.2 103/ul Normal 0.0-0.7 [facility] Comment on above: Performed By: #### C BC #### [facility] [address] [place] [address] Dr. Franky Olguin Eosinophils/100 WBC (Bld) 2.3 % Normal 0.9-7.0 [facility] Comment on above: Performed By: #### C BC #### [facility] [address] [place] [address] Dr. Franky Olguin Erythrocyte distribution width (RBC) [Ratio] 13.0 % Normal 11.0-15.0 [facility] Comment on above: Performed By: #### C BC #### [facility] [address] [place] [address] Dr. Franky Olguin Hematocrit (Bld) [Volume fraction] 44.9 % Normal 42.0-54.0 [facility] Comment on above: Performed By: #### C BC #### [facility] [address] [place] [address] Dr. Franky Olguin Hemoglobin (Bld) [Mass/Vol] 14.5 g/dL Normal 14.0-18.0 [facility] Comment on above: Performed By: #### C BC #### [facility] [address] [place] [address] Dr. Franky Olguin IG # 0.03 10e3/ul Normal 0.00-0.03 [facility] Comment on above: Performed By: #### C BC #### [facility] [address] [place] [address] Dr. Franky Olguin IG % 0.4 % Normal 0.0-0.5 [facility] Comment on above: Performed By: #### C BC #### [facility] [address] [place] [address] Dr. Franky Olguin LYMPH # 2.3 103/ul Normal 1.2-3.8 [facility] Comment on above: Performed By: #### C BC #### [facility] [address] [place] [address] Dr. Franky Olguin Lymphocytes/100 WBC (Bld) 30.3 % Normal 20.5-60.0 [facility] Comment on above: Performed By: #### C BC #### [facility] [address] [place] [address] Dr. Franky Olguin MANUAL DIFF REQ NO Normal [facility] Comment on above: Performed By: #### C BC #### [facility] [address] [place] [address] Dr. Franky Olguin MCH (RBC) [Entitic mass] 30.5 pg Normal 25.9-34.0 [facility] Comment on above: Performed By: #### C BC #### [facility] [address] [place] [address] Dr. Franky Olguin MCHC (RBC) [Mass/Vol] 32.3 g/dL Normal 29.9-35.2 [facility] Comment on above: Performed By: #### C BC #### [facility] [address] [place] [address] Dr. Franky Olguin MCV (RBC) [Entitic vol] 94.5 fL Critically high 80.0-94.0 [facility] Comment on above: Performed By: #### C BC #### [facility] [address] [place] [address] Dr. Franky Olguin MONO # 0.6 103/ul Normal 0.3-0.8 [facility] Comment on above: Performed By: #### C BC #### [facility] [address] [place] [address] Dr. Franky Olguin Monocytes/100 WBC (Bld) 8.2 % Normal 1.7-12.0 [facility] Comment on above: Performed By: #### C BC #### [facility] [address] [place] [address] Dr. Franky Olguin NEUT # 4.5 103/ul Normal 1.4-6.5 [facility] Comment on above: Performed By: #### C BC #### [facility] [address] [place] [address] Dr. Franky Olguin Neutrophils/100 WBC (Bld) 58.0 % Normal 43.0-75.0 [facility] Comment on above: Performed By: #### C BC #### [facility] [address] [place] [address] Dr. Franky Olguin Platelet mean volume (Bld) [Entitic vol] 9.9 fL Normal 9.5-13.5 [facility] Comment on above: Performed By: #### C BC #### [facility] [address] [place] [address] Dr. Franky Olguin PLT 199 103/ul Normal 150-450 [facility] Comment on above: Performed By: #### C BC #### [facility] [address] [place] [address] Dr. Franky Olguin RBC 4.75 106/ul Normal 4.70-6.10 [facility] Comment on above: Performed By: #### C BC #### [facility] [address] [place] [address] Dr. Franky Olguin WBC 7.7 103/ul Normal 4.0-11.0 [facility] Comment on above: Performed By: #### C BC #### [facility] [address] [place] [address] Dr. Franky Olguin FREE THYROXINE INDEX T7on FTI 1.92 Normal [facility] Comment on above: Performed By: #### L IPID, CMP, T7, TSH #### [facility] [address] [place] [address] Dr. Franky Olguin T3U 30.0 % Normal 23.5-40.5 [facility] Comment on above: Performed By: #### L IPID, CMP, T7, TSH #### [facility] [address] [address] [address] Franky Olguin T4 [Mass/Vol] 6.40 ug/dL Normal 5.53-11.00 [facility] Comment on above: Performed By: #### L IPID, CMP, T7, TSH #### [facility] [address] [address] [address] Franky Olguin GLYCOHEMOGLOBIN A1Con 2020 ADA RECOMMENDATION ADA THERAPEUTIC TARGET 6.0 - 7.0 ACTION SUGGESTED > 7.0 Normal [facility] Comment on above: Performed By: #### A 1C #### [facility] [address] [place] [address] Dr. Franky Olguin Glucose [Mass/Vol] 151 mg/dL Normal [facility] Comment on above: Performed By: #### A 1C #### [facility] [address] [address] [address] Franky Olguin HbA1c (Bld) [Mass fraction] 6.9 % Critically high <=6.0 [facility] Comment on above: Performed By: #### A 1C #### [facility] [address] [place] [address] Dr. Franky Olguin LIPID PROFILEon 03-25-2021 CHOL-HDL RATIO NORM SEE BELOW Normal [facility] Comment on above: Result Comment: 3.3 - 4.4 LOW RISK 4.4 - 7.1 AVERAGE RISK 7.1 - 11.0 MODERATE RISK >11.0 HIGH RISK Performed By: #### L IPID, CMP, T7, TSH #### [facility] [address] [address] [address] Franky Olguin Cholesterol [Mass/Vol] 167 mg/dL Normal <=200 [facility] Comment on above: Performed By: #### L IPID, CMP, T7, TSH #### [facility] [address] [address] [address] Franky Olguin Cholesterol in HDL [Mass/Vol] 37 mg/dL Normal [facility] Comment on above: Performed By: #### L IPID, CMP, T7, TSH #### [facility] [address] [address] [address] Franky Olguin Cholesterol in LDL [Mass/Vol] 93.4 mg/dL Normal [facility] Comment on above: Performed By: #### L IPID, CMP, T7, TSH #### [facility] [address] [address] [address] Franky Olguin Cholesterol.total/Cho lesterol in HDL [Mass ratio] 4.5 {ratio} Normal [facility] Comment on above: Performed By: #### L IPID, CMP, T7, TSH #### [facility] [address] [address] [address] Franky Olguin HDL NORMAL > or = 60 mg/dl - LOW CARDIOVASCULAR RISK <40 mg/dl - HIGH CARDIOVASCULAR RISK Normal [facility] Comment on above: Performed By: #### L IPID, CMP, T7, TSH #### [facility] [address] [address] [address] Franky Olguin LDL CALC NORMAL SEE BELOW Normal [facility] Comment on above: Result Comment: <100 mg/dl OPTIMAL 100 - 129 mg/dl NEAR OR ABOVE OPTIMAL 130 - 159 mg/dl BORDERLINE HIGH 160 - 189 mg/dl HIGH >190 mg/dl VERY HIGH Performed By: #### L IPID, CMP, T7, TSH #### [facility] [address] [address] [address] Franky Olguin Triglyceride [Mass/Vol] 183 mg/dL Critically high <=150 [facility] Comment on above: Performed By: #### L IPID, CMP, T7, TSH #### [facility] [address] [address] [address] Franky Olguin VLDL CALC 36.6 mg/dL Normal [facility] Comment on above: Performed By: #### L IPID, CMP, T7, TSH #### [facility] [address] [address] [address] Franky Olguin PROF 14(COMP METB)on 021 Albumin [Mass/Vol] 3.9 g/dL Normal 3.5-5.0 [facility] Comment on above: Performed By: #### L IPID, CMP, T7, TSH #### [facility] [address] [address] [address] Franky Olguin Albumin/Globulin [Mass ratio] 1.0 {ratio} Normal [facility] Comment on above: Performed By: #### L IPID, CMP, T7, TSH #### [facility] [address] [place] [address] Dr. Franky Olguin ALP [Catalytic activity/Vol] 68 U/L Normal 38-126 [facility] Comment on above: Performed By: #### L IPID, CMP, T7, TSH #### [facility] [address] [place] [address] Dr. Franky Olguin ALT [Catalytic activity/Vol] 89 U/L Critically high 21-72 [facility] Comment on above: Performed By: #### L IPID, CMP, T7, TSH #### [facility] [address] [address] [address] Franky Olguin Anion gap [Moles/Vol] 13.1 mmol/L Normal [facility] Comment on above: Performed By: #### L IPID, CMP, T7, TSH #### [facility] [address] [place] [address] Dr. Franky Olguin AST [Catalytic activity/Vol] 56 U/L Normal 17-59 [facility] Comment on above: Performed By: #### L IPID, CMP, T7, TSH #### [facility] [address] [place] [address] Dr. Franky Olguin Bilirubin [Mass/Vol] 0.7 mg/dL Normal 0.2-1.3 [facility] Comment on above: Performed By: #### L IPID, CMP, T7, TSH #### [facility] [address] [address] [address] Franky Olguin Calcium [Mass/Vol] 9.5 mg/dL Normal 8.4-10.2 [facility] Comment on above: Performed By: #### L IPID, CMP, T7, TSH #### [facility] [address] [address] [address] Franky Olguin Chloride [Moles/Vol] 104 mmol/L Normal 98-107 [facility] Comment on above: Performed By: #### L IPID, CMP, T7, TSH #### [facility] [address] [place] [address] Dr. Franky Olguin CO2 [Moles/Vol] 25.1 mmol/L Normal 22.0-30.0 [facility] Comment on above: Performed By: #### L IPID, CMP, T7, TSH #### [facility] [address] [place] [address] Dr. Franky Olguin Creatinine [Mass/Vol] 1.19 mg/dL Normal 0.66-1.25 [facility] Comment on above: Performed By: #### L IPID, CMP, T7, TSH #### [facility] [address] [place] [address] Dr. Franky Olguin EGFR-AF CITIZEN [place] >60 Normal >=60 [facility] Comment on above: Performed By: #### L IPID, CMP, T7, TSH #### [facility] [address] [place] [address] Dr. Franky Olguin EGFR-NON AF CITIZEN OF [place] >60 Normal >=60 [facility] Comment on above: Performed By: #### L IPID, CMP, T7, TSH #### [facility] [address] [place] [address] Dr. Franky Olguin Globulin (S) [Mass/Vol] 4.0 g/dL Normal [facility] Comment on above: Performed By: #### L IPID, CMP, T7, TSH #### [facility] [address] [place] [address] Dr. Franky Olguin Glucose [Mass/Vol] 133 mg/dL Critically high 74-106 [facility] Comment on above: Performed By: #### L IPID, CMP, T7, TSH #### [facility] [address] [place] [address] Dr. Franky Olguin Potassium [Moles/Vol] 4.2 mmol/L Normal 3.4-5.0 [facility] Comment on above: Performed By: #### L IPID, CMP, T7, TSH #### [facility] [address] [address] [address] Franky Olguin Protein [Mass/Vol] 7.9 g/dL Normal 6.1-8.2 [facility] Comment on above: Performed By: #### L IPID, CMP, T7, TSH #### [facility] [address] [place] [address] Dr. Franky Olguin Sodium [Moles/Vol] 138 mmol/L Normal 137-145 [facility] Comment on above: Performed By: #### L IPID, CMP, T7, TSH #### [facility] [address] [place] [address] Dr. Franky Olguin Urea nitrogen [Mass/Vol] 19.0 mg/dL Normal 9.0-20.0 [facility] Comment on above: Performed By: #### L IPID, CMP, T7, TSH #### [facility] [address] [place] [address] Dr. Franky Olguin Urea nitrogen/Creatinine [Mass ratio] 16.0 mg/mg Normal [facility] Comment on above: Performed By: #### L IPID, CMP, T7, TSH #### [facility] [address] [place] [address] Dr. Franky Olguin TSHon 03-25-2021 TSH 4.571 uIU/mL Normal 0.470-4.680 [facility] Comment on above: Performed By: #### L IPID, CMP, T7, TSH #### [facility] [address] [place] [address] Dr. Franky Olguin TSH RANGE SEE BELOW Normal [facility] Comment on above: Result Comment: <0.3 4 UIU/ml HYPERTHYROID 0.34-5.60 UIU/ml EUTHYROID >5.60 UIU/ml HYPOTHYROID Performed By: #### L IPID, CMP, T7, TSH #### [facility] [address] [address] [address] Franky Olguin US venous duplex LE LTon US venous duplex LE LT [facility] [place] [address] [place] [address] Ultrasound Report Signed Patient: Holden Askew MR#: [id number] 98 : 1965 Acct:[id number] Age/Sex: 56 / M ADM Date: 03/12/21 Loc: [facility] Room: Type: [facility] CLI Attending Dr: Jaime Wooten MD Ordering Provider: [...] Jaime Wooten MD03/18/2021 3:20 PM [facility]: Kamala Wells Transcribed By: [facility] 03/18/21 1520 Dictated By: Jaime Wooten MD 03/18/21 1518 Signed By: 03/18/21 1520 [facility] Auth for Release of Medical Recordson 02-02-2021 Auth for Release of Medical Records [id number]# 1.00CD:127 [facility] 01-28-2021 Forms [id number] #1.00CD:127 Normal [facility] 01-21-2021 Forms [id number] #1.00CD:127 Normal [facility] Screenson 12-23-2020 Screens [id number] #1.00CD:127 Normal [facility] Screens [id number] #1.00CD:127 Normal [facility] Ambulatory Clinical Summaryo n 12-18-2020 Ambulatory Clinical Summary {[id number]}CD:[id number] Normal [facility] 12-18-2020 Forms [id number] #1.00CD:127 Normal [facility] General Surgery Office/Clini c Noteon 12-17-2020 General Surgery Office/Clinic Note HPI Staff New pt, self ref (saw Dr. Hunter in the past ) sima leg pain left leg pain worse needs hose rx Dr. Jones did surgery for venous malformation in 1989' History of Present Illness Mr. Askew comes [...] by Dr. Jones. He has been using busy-lvq-ovyqlxq hose for several years now and he [...] also tel (more content not included)... Normal [facility] Comment on above: Result Comment: Elec tronically Signed By: ERICA CARRERA, Cecilia Jeffrey\.waqas\Date and Time Signed: 12/17/20 13:46 EDT Patient Correspondenceon Patient Correspondence 104.... [id number] #1.00CD:127 Normal [facility] Retail - Clinical Noteon Retail - Clinical Note [id number] #1.00CD:127 [facility] Vital Signs Date Time Vital Sign Value Performing Clinician Facility 03-12-2021 13:30-0400 Body height 185.42 cm Jaime Wooten Other [employer] [employer] Other 03-12-2021 13:30-0400 Body mass index (BMI) [Ratio] 40.63 kg/m2 Jaime Wooten Other [employer] Other 03-12-2021 13:30-0400 Body weight 139.71 kg Jaime Wooten Other [employer] Other 03-12-2021 13:30-0400 Diastolic blood pressure 118 mm[Hg] Jaime Wooten Other [employer] Other 03-12-2021 13:30-0400 Systolic blood pressure 161 mm[Hg] Jaime Wooten Other [employer] Other Encounters Encounter Date Encounter Type Care Provider Facility Start: 07-07-2021 End: 07-07-[address] JESÚS BEEBE Facility:[facility] Start: 05-13-2021 End: 05-13-[address] JESÚS BEEBE Facility:[facility] Start: 04-03-2021 Encounter for genera l adult medical examination without abnormal findings DR JESÚS BEEBE [facility] Start: 03-25-2021 End: 03-26-[address] JESÚS BEEBE Facility:[facility] Start: 03-25-2021 End: 03-26-2021 Encounter for general adult medical examination without abnormal findings DR JESÚS BEEBE Facility:[facility] Start: 03-12-2021 Office outpatient vi sit 15 minutes Jaime BERNSTEIN [facility] Procedures Date Procedure Procedure Detail Performing Clinician Start: 03-25-[address] GRETCHEN BEEBE Comment on above: Performed By: #### P [facility] #### [facility] [address] [place] [address] Dr. Franky Olguin Payers Date Payer Category Payer Unknown [id number] [id number] [id number] 1965 Unknown [id number] 1965 Unknown [id number] 1959 Unknown [id number] Social History Date Type Detail Facility Sex Assigned At [employer] Other Evaluation note 03-12-2021 Note Date & [...] I do not normally ever proceed with [place] paperwork for symptomatic varicose veins without any [...] lower extremity with pain (ICD-10 - I83.812) [employer] Other History general Narrative - Reported Note Date & Type Note Facility History general Narrative - Reported Type Medical History Varicose veins Surgical History vein procedure (Dr. Jones) [employer] Other Summary Purpose Family History No Family [...] content) DATE CREATED AUTHOR 02/03/2021 [facility] DATE CREATED AUTHOR AUTHOR'S ORGANIZ ATION 07/07/2021 [facility] DATE CREATED AUTHOR AUTHOR'S ORGANIZ ATION 07/10/2021 [facility] REASON FOR VISIT (unrecogniz ed [...] BE BASED ON THE PRIMARY CLINICAL RECORDS. [employer] provides no warranty or guarantee of the accuracy or completeness of information in this document.
--- NOTE | 2023-12-12 10:46 | XR_ITS ---
The [address] [address] Patient Name: HOLDEN CHANEY MRN: [id number] date: 1965 Sex: M Assigned Patient Location: [facility] Current Patient Location: Accession/Order Number: [id number] Exam Date: 12/12/2023 10:40 Report Date: 12/13/2023 13:05 At the request of: JESÚS BEEBE Procedure: XR knee LT 3V PROCEDURE: XR knee LT 3V HISTORY: Knee Osteoarthritis ; chronic COMPARISON: None. FINDINGS: BONES:Mild narrowing of the medial joint space. Small-moderate periarticular degenerative osteophytes of the medial and lateral compartments. Moderate size degenerative osteophytes along margins of patella. No fracture or dislocation. SOFT TISSUES:No visible soft tissue swelling. EFFUSION:None visible. OTHER: Negative. XR/XR knee LT 3V IMPRESSION: 1. Moderate degenerative joint disease. 2. No acute bone abnormality. Electronically authenticated by: HECTOR MONTGOMERY Date: 12/13/2023 13:05
== END 2023-12-12 10:04 | disposition home or self-care (01) ==
LOC: RAD 10:06
PROVIDERS: PCP Family Medicine; Visit Provider Family Medicine
DX: M17.9 Osteoarthritis of knee, unspecified (principal)
CPT/HCPCS: 73562

== ENCOUNTER 2024-01-03 13:33 | Emergency (ER) | payer BC, SELFPAY ==
[2024-01-03] VITALS (19 sets, daily range): BP systolic 136–157; BP diastolic 92–117; PULSE 95–105; TEMP 36.4; O2SAT 91–98; BMI 39.3
--- NOTE | 2024-01-03 13:43 | ECG_ITS ---
The [facility] Test Date: 2024-01-03 Pat Name: HOLDEN CHANEY Department: Room: - Gender: Male Deputy Director: : 1965 Requested By: JESÚS BEEBE Order Number: [id number] Reading MD: JESÚS BEEBE Measurements Intervals [place] Rate: 99 P: 30 WI: 148 QRS: 4 QRSD: 86 T: 46 QT: 324 QTc: 380 Interpretive Statements 1100 Sinus rhythm 9110 normal ECG No previous ECG available for comparison Electronically Signed On 01-04-2024 13:31:05 EDT by JESÚS BEEBE
--- NOTE | 2024-01-03 13:43 | XR_ITS ---
The [address] [address] Patient Name: HOLDEN CHANEY MRN: [id number] date: 1965 Sex: M Assigned Patient Location: ER Current Patient Location: ER Accession/Order Number: [id number] Exam Date: 01/03/2024 14:00 Report Date: 01/03/2024 14:24 At the request of: CK GAYLE Procedure: XR chest 1V EXAMINATION: XR chest 1V HISTORY: SOB , chest pain, sweats COMPARISON: No relevant comparison available. FINDINGS: LUNGS: No significant pulmonary parenchymal abnormalities. VASCULATURE: No increased pulmonary vasculature. PLEURA: No pneumothorax, effusion, or pleural thickening. CARDIAC: No cardiomegaly or cardiac silhouette abnormality. MEDIASTINUM: No visible mass or adenopathy. BONES: No fracture or visible bone lesion. OTHER: Negative. XR/XR chest 1V IMPRESSION: 1. No acute cardiopulmonary process or suspicious findings. Electronically authenticated by: HECTOR MONTGOMERY Date: 01/03/2024 14:24
--- OUTSIDE RECORDS SUMMARY | 2024-01-03 13:59 | XMS_ITS | CCD ---
Author Organization [facility] Care Team Providers Care Pipe Tester Name Role Phone DR JESÚS BEEBE Primary [...] spec) Detected Critically abnormal NOT DETECTED [facility] Comment on above: Result Comment: This test is not yet approved or cleared by the [place] FDA. When there are no FDA-approved or cleared tests available, and other criteria are met, FDA can make tests available under an emergency access mechanism called an Emergency Use Authorization (EUA). The EUA for this test is supported by the Histology Technician of Health and Human Service's (HHS's) declaration [...] used). Performed By: #### C VDTBH #### [facility] [address] [address] [address] Franky Olguin Covid-19 PCR ([facility])on SARS-CoV-2 (COVID-19) RNA ABEL+probe Ql (Unsp spec) Not detected Normal NOT DETECTED [facility] Comment on above: Result Comment: This test is not yet approved or cleared by the [place] FDA. When there are no FDA-approved or cleared tests available, and other criteria are met, FDA can make tests available under an emergency access mechanism called an Emergency Use Authorization (EUA). The EUA for this test is supported by the [place] of Health and Human Service's (HHS's) declaration [...] SARS-CoV-2. Performed By: #### C VDTBH #### [facility] [address] [place] [address] Dr. Franky Olguin CBC AUTO DIFFon 03-25-2021 BASO # 0.1 103/ul Normal 0.0-0.1 [facility] Comment on above: Performed By: #### C BC #### [facility] [address] [place] [address] Dr. Franky Olguin Basophils/100 WBC (Bld) 0.8 % Normal 0.2-2.0 [facility] Comment on above: Performed By: #### C BC #### [facility] [address] [place] [address] Dr. Franky Olguin EO # 0.2 103/ul Normal 0.0-0.7 [facility] Comment on above: Performed By: #### C BC #### [facility] [address] [place] [address] Dr. Franky Olguin Eosinophils/100 WBC (Bld) 2.3 % Normal 0.9-7.0 [facility] Comment on above: Performed By: #### C BC #### [facility] [address] [place] [address] Dr. Franky Olguin Erythrocyte distribution width (RBC) [Ratio] 13.0 % Normal 11.0-15.0 [facility] Comment on above: Performed By: #### C BC #### [facility] [address] [place] [address] Dr. Franky Olguin Hematocrit (Bld) [Volume fraction] 44.9 % Normal 42.0-54.0 [facility] Comment on above: Performed By: #### C BC #### [facility] [address] [place] [address] Dr. Franky Olguin Hemoglobin (Bld) [Mass/Vol] 14.5 g/dL Normal 14.0-18.0 [facility] Comment on above: Performed By: #### C BC #### [facility] [address] [place] [address] Dr. Franky Olguin IG # 0.03 10e3/ul Normal 0.00-0.03 [facility] Comment on above: Performed By: #### C BC #### [facility] [address] [place] [address] Dr. Franky Olguin IG % 0.4 % Normal 0.0-0.5 [facility] Comment on above: Performed By: #### C BC #### [facility] [address] [place] [address] Dr. Franky Olguin LYMPH # 2.3 103/ul Normal 1.2-3.8 [facility] Comment on above: Performed By: #### C BC #### [facility] [address] [place] [address] Dr. Franky Olguin Lymphocytes/100 WBC (Bld) 30.3 % Normal 20.5-60.0 [facility] Comment on above: Performed By: #### C BC #### [facility] [address] [place] [address] Dr. Franky Olguin MANUAL DIFF REQ NO Normal [facility] Comment on above: Performed By: #### C BC #### [facility] [address] [place] [address] Dr. Franky Olguin MCH (RBC) [Entitic mass] 30.5 pg Normal 25.9-34.0 [facility] Comment on above: Performed By: #### C BC #### [facility] [address] [place] [address] Dr. Franky Olguin MCHC (RBC) [Mass/Vol] 32.3 g/dL Normal 29.9-35.2 [facility] Comment on above: Performed By: #### C BC #### [facility] [address] [place] [address] Dr. Franky Olguin MCV (RBC) [Entitic vol] 94.5 fL Critically high 80.0-94.0 [facility] Comment on above: Performed By: #### C BC #### [facility] [address] [place] [address] Dr. Franky Olguin MONO # 0.6 103/ul Normal 0.3-0.8 [facility] Comment on above: Performed By: #### C BC #### [facility] [address] [place] [address] Dr. Franky Olguin Monocytes/100 WBC (Bld) 8.2 % Normal 1.7-12.0 [facility] Comment on above: Performed By: #### C BC #### [facility] [address] [place] [address] Dr. Franky Olguin NEUT # 4.5 103/ul Normal 1.4-6.5 [facility] Comment on above: Performed By: #### C BC #### [facility] [address] [place] [address] Dr. Franky Olguin Neutrophils/100 WBC (Bld) 58.0 % Normal 43.0-75.0 [facility] Comment on above: Performed By: #### C BC #### [facility] [address] [place] [address] Dr. Franky Olguin Platelet mean volume (Bld) [Entitic vol] 9.9 fL Normal 9.5-13.5 [facility] Comment on above: Performed By: #### C BC #### [facility] [address] [place] [address] Dr. Franky Olguin PLT 199 103/ul Normal 150-450 [facility] Comment on above: Performed By: #### C BC #### [facility] [address] [place] [address] Dr. Franky Olguin RBC 4.75 106/ul Normal 4.70-6.10 [facility] Comment on above: Performed By: #### C BC #### [facility] [address] [place] [address] Dr. Franky Olguin WBC 7.7 103/ul Normal 4.0-11.0 [facility] Comment on above: Performed By: #### C BC #### [facility] [address] [place] [address] Dr. Franky Olguin FREE THYROXINE INDEX T7on FTI 1.92 Normal [facility] Comment on above: Performed By: #### L IPID, CMP, T7, TSH #### [facility] [address] [place] [address] Dr. Franky Olguin T3U 30.0 % Normal 23.5-40.5 [facility] Comment on above: Performed By: #### L IPID, CMP, T7, TSH #### [facility] [address] [address] [address] Franky Olguin T4 [Mass/Vol] 6.40 ug/dL Normal 5.53-11.00 [facility] Comment on above: Performed By: #### L IPID, CMP, T7, TSH #### [facility] [address] [address] [address] Franky Olguin GLYCOHEMOGLOBIN A1Con 2020 ADA RECOMMENDATION ADA THERAPEUTIC TARGET 6.0 - 7.0 ACTION SUGGESTED > 7.0 Normal [facility] Comment on above: Performed By: #### A 1C #### [facility] [address] [place] [address] Dr. Franky Olguin Glucose [Mass/Vol] 151 mg/dL Normal [facility] Comment on above: Performed By: #### A 1C #### [facility] [address] [address] [address] Franky Olguin HbA1c (Bld) [Mass fraction] 6.9 % Critically high <=6.0 [facility] Comment on above: Performed By: #### A 1C #### [facility] [address] [place] [address] Dr. Franky Olguin LIPID PROFILEon 03-25-2021 CHOL-HDL RATIO NORM SEE BELOW Normal [facility] Comment on above: Result Comment: 3.3 - 4.4 LOW RISK 4.4 - 7.1 AVERAGE RISK 7.1 - 11.0 MODERATE RISK >11.0 HIGH RISK Performed By: #### L IPID, CMP, T7, TSH #### [facility] [address] [address] [address] Franky Olguin Cholesterol [Mass/Vol] 167 mg/dL Normal <=200 [facility] Comment on above: Performed By: #### L IPID, CMP, T7, TSH #### [facility] [address] [address] [address] Franky Olguin Cholesterol in HDL [Mass/Vol] 37 mg/dL Normal [facility] Comment on above: Performed By: #### L IPID, CMP, T7, TSH #### [facility] [address] [address] [address] Franky Olguin Cholesterol in LDL [Mass/Vol] 93.4 mg/dL Normal [facility] Comment on above: Performed By: #### L IPID, CMP, T7, TSH #### [facility] [address] [address] [address] Franky Olguin Cholesterol.total/Cho lesterol in HDL [Mass ratio] 4.5 {ratio} Normal [facility] Comment on above: Performed By: #### L IPID, CMP, T7, TSH #### [facility] [address] [address] [address] Franky Olguin HDL NORMAL > or = 60 mg/dl - LOW CARDIOVASCULAR RISK <40 mg/dl - HIGH CARDIOVASCULAR RISK Normal [facility] Comment on above: Performed By: #### L IPID, CMP, T7, TSH #### [facility] [address] [address] [address] Franky Olguin LDL CALC NORMAL SEE BELOW Normal [facility] Comment on above: Result Comment: <100 mg/dl OPTIMAL 100 - 129 mg/dl NEAR OR ABOVE OPTIMAL 130 - 159 mg/dl BORDERLINE HIGH 160 - 189 mg/dl HIGH >190 mg/dl VERY HIGH Performed By: #### L IPID, CMP, T7, TSH #### [facility] [address] [address] [address] Franky Olguin Triglyceride [Mass/Vol] 183 mg/dL Critically high <=150 [facility] Comment on above: Performed By: #### L IPID, CMP, T7, TSH #### [facility] [address] [address] [address] Franky Olguin VLDL CALC 36.6 mg/dL Normal [facility] Comment on above: Performed By: #### L IPID, CMP, T7, TSH #### [facility] [address] [address] [address] Franky Olgiun PROF 14(COMP METB)on 021 Albumin [Mass/Vol] 3.9 g/dL Normal 3.5-5.0 [facility] Comment on above: Performed By: #### L IPID, CMP, T7, TSH #### [facility] [address] [address] [address] Franky Olguin Albumin/Globulin [Mass ratio] 1.0 {ratio} Normal [facility] Comment on above: Performed By: #### L IPID, CMP, T7, TSH #### [facility] [address] [place] [address] Dr. Franky Olguin ALP [Catalytic activity/Vol] 68 U/L Normal 38-126 [facility] Comment on above: Performed By: #### L IPID, CMP, T7, TSH #### [facility] [address] [place] [address] Dr. Franky Olguin ALT [Catalytic activity/Vol] 89 U/L Critically high 21-72 [facility] Comment on above: Performed By: #### L IPID, CMP, T7, TSH #### [facility] [address] [address] [address] Franky Olguin Anion gap [Moles/Vol] 13.1 mmol/L Normal [facility] Comment on above: Performed By: #### L IPID, CMP, T7, TSH #### [facility] [address] [place] [address] Dr. Franky Olguin AST [Catalytic activity/Vol] 56 U/L Normal 17-59 [facility] Comment on above: Performed By: #### L IPID, CMP, T7, TSH #### [facility] [address] [place] [address] Dr. Franky Olguin Bilirubin [Mass/Vol] 0.7 mg/dL Normal 0.2-1.3 [facility] Comment on above: Performed By: #### L IPID, CMP, T7, TSH #### [facility] [address] [address] [address] Franky Olguin Calcium [Mass/Vol] 9.5 mg/dL Normal 8.4-10.2 [facility] Comment on above: Performed By: #### L IPID, CMP, T7, TSH #### [facility] [address] [address] [address] Franky Olguin Chloride [Moles/Vol] 104 mmol/L Normal 98-107 [facility] Comment on above: Performed By: #### L IPID, CMP, T7, TSH #### [facility] [address] [place] [address] Dr. Franky Olguin CO2 [Moles/Vol] 25.1 mmol/L Normal 22.0-30.0 [facility] Comment on above: Performed By: #### L IPID, CMP, T7, TSH #### [facility] [address] [place] [address] Dr. Franky Olguin Creatinine [Mass/Vol] 1.19 mg/dL Normal 0.66-1.25 [facility] Comment on above: Performed By: #### L IPID, CMP, T7, TSH #### [facility] [address] [place] [address] Dr. Franky Olguin EGFR-AF BOLIVIAN >60 Normal >=60 [facility] Comment on above: Performed By: #### L IPID, CMP, T7, TSH #### [facility] [address] [place] [address] Dr. Franky Olguin EGFR-NON AF BOLIVIAN >60 Normal >=60 [facility] Comment on above: Performed By: #### L IPID, CMP, T7, TSH #### [facility] [address] [place] [address] Dr. Franky Olguin Globulin (S) [Mass/Vol] 4.0 g/dL Normal [facility] Comment on above: Performed By: #### L IPID, CMP, T7, TSH #### [facility] [address] [place] [address] Dr. Franky Olguin Glucose [Mass/Vol] 133 mg/dL Critically high 74-106 T [facility] Comment on above: Performed By: #### L IPID, CMP, T7, TSH #### [facility] [address] [place] [address] Dr. Franky Olguin Potassium [Moles/Vol] 4.2 mmol/L Normal 3.4-5.0 [facility] Comment on above: Performed By: #### L IPID, CMP, T7, TSH #### [facility] [address] [address] [address] Franky Olguin Protein [Mass/Vol] 7.9 g/dL Normal 6.1-8.2 [facility] Comment on above: Performed By: #### L IPID, CMP, T7, TSH #### [facility] [address] [place] [address] Dr. Franky Olguin Sodium [Moles/Vol] 138 mmol/L Normal 137-145 [facility] Comment on above: Performed By: #### L IPID, CMP, T7, TSH #### [facility] [address] [place] [address] Dr. Franky Olguin Urea nitrogen [Mass/Vol] 19.0 mg/dL Normal 9.0-20.0 [facility] Comment on above: Performed By: #### L IPID, CMP, T7, TSH #### [facility] [address] [place] [address] Dr. Franky Olguin Urea nitrogen/Creatinine [Mass ratio] 16.0 mg/mg Normal [facility] Comment on above: Performed By: #### L IPID, CMP, T7, TSH #### [facility] [address] [place] [address] Dr. Franky Olguin TSHon 03-25-2021 TSH 4.571 uIU/mL Normal 0.470-4.680 [facility] Comment on above: Performed By: #### L IPID, CMP, T7, TSH #### [facility] [address] [place] [address] Dr. Franky Olguin TSH RANGE SEE BELOW Normal [facility] Comment on above: Result Comment: <0.3 4 UIU/ml HYPERTHYROID 0.34-5.60 UIU/ml EUTHYROID >5.60 UIU/ml HYPOTHYROID Performed By: #### L IPID, CMP, T7, TSH #### [facility] [address] [address] [address] Franky Olguin US venous duplex LE LTon US venous duplex LE LT [facility] Main [place] [address] [place] [address] Ultrasound Report Signed Patient: Holden Askew MR#: [id number] 98 : 1965 Acct:[id number] Age/Sex: 56 / M ADM Date: 03/12/21 Loc: [facility] Room: Type: [facility] CLI Attending Dr: Jaime Wooten MD Ordering [...] Jaime Wooten MD03/18/2021 3:20 PM Dictation Location[facility] Tech: Kamala Wells Transcribed By: [facility] 03/18/21 1520 Dictated By: Jaime Wooten MD 03/18/21 1518 Signed By: 03/18/21 1520 [facility] Auth for Release of Medical Recordson 02-02-2021 Auth for Release of Medical Records [id number]# 1.00CD:127 [facility] Formson 01-28-2021 Forms [id number] #1.00CD:127 Normal [facility] Formson 01-21-2021 Forms [id number] #1.00CD:127 Normal [facility] Screenson 12-23-2020 Screens [id number] #1.00CD:127 Normal [facility] Screens [id number] #1.00CD:127 Normal [facility] Ambulatory Clinical Summaryo n 12-18-2020 Ambulatory Clinical Summary {[id number]}CD:[id number] Normal [facility] Formson 12-18-2020 Forms [id number] #1.00CD:127 Normal [facility] General Surgery Office/Clini c Noteon 12-17-2020 General [...] by Dr. Jones. He has been using jozj-ktd-goqnlyv hose for several years now and he [...] also tel (more content not included)... Normal [facility] Comment on above: Result Comment: Elec tronically Signed By: ERICA CARRERA, Cecilia Jeffrey\.waqas\Date and Time Signed: 12/17/20 13:46 EDT Patient Correspondenceon Patient Correspondence 104.... [id number] #1.00CD:127 Normal [facility] Retail - Clinical Noteon Retail - Clinical Note [id number] #1.00CD:127 [facility] Vital Signs Date Time Vital Sign Value Performing Clinician Facility 03-12-2021 13:30-0400 Body height 185.42 cm Jaime Wooten Other [facility] Other 03-12-2021 13:30-0400 Body mass index (BMI) [Ratio] 40.63 kg/m2 Jaime Wooten Other [facility] Other 03-12-2021 13:30-0400 Body weight 139.71 kg Jaime Wooten Other [facility] Other 03-12-2021 13:30-0400 Diastolic blood pressure 118 mm[Hg] Jaime Wooten Other [facility] Other 03-12-2021 13:30-0400 Systolic blood pressure 161 mm[Hg] Jaime Wooten Other [facility] Other Encounters Encounter Date Encounter Type Care Provider Facility Start: 07-07-2021 End: 07-07-[address] JESÚS BEEBE Facility:[facility] Start: 05-13-2021 End: 05-13-[address] JESÚS BEEBE Facility:[facility] Start: 04-03-2021 Encounter for genera l adult medical examination without abnormal findings DR JESÚS BEEBE [facility] Start: 03-25-2021 End: 03-26-[address] JESÚS BEEBE Facility:[facility] Start: 03-25-2021 End: 03-26-2021 Encounter for general adult medical examination without abnormal findings DR JESÚS BEEBE Facility:[facility] Start: 03-12-2021 Office outpatient vi sit 15 minutes Jaime BERNSTEIN [facility] Surgery Procedures Date Procedure Procedure Detail Performing Clinician Start: 03-25-[address] GRETCHEN BEEBE Comment on above: Performed By: #### P [facility] #### [facility] [address] [place] [address] Dr. Franky Olguin Payers Date Payer Category Payer Unknown [id number] 2.16.84 [id number] 1965 Unknown [id number] [id number] [id number] 1965 Unknown [id number] [id number] [id number] 1959 Unknown [id number] Social History Date Type Detail Facility Sex Assigned At [facility] Other Evaluation note 03-12-2021 Note Date & [...] lower extremity with pain (ICD-10 - I83.812) [facility] Other History general Narrative - Reported Note Date & Type Note Facility History general Narrative - Reported Type Medical History Varicose veins Surgical History vein procedure (Dr. Jones) [facility] Other Summary Purpose Family History No Family [...] content) DATE CREATED AUTHOR 02/03/2021 Derek Shepherd [facility] DATE CREATED AUTHOR AUTHOR'S ORGANIZ ATION 07/07/2021 [facility] DATE CREATED AUTHOR AUTHOR'S ORGANIZ ATION 07/10/2021 [facility] REASON FOR VISIT (unrecogniz ed [...] BE BASED ON THE PRIMARY CLINICAL RECORDS. [employer] provides no warranty or guarantee of the accuracy or completeness of information in this document.
[2024-01-03 14:06] LABS: Basophils Percent Auto 0.4 % (0.2-2.0); Eosinophils Absolute Auto 0.1 10^3/uL (0.0-0.7); Eosinophils Percent Auto 1.1 % (0.9-7.0); Hemoglobin 14.3 g/dL (14.0-18.0); Immature Granulocytes Abs Auto 0.06 10^3/uL (0.00-0.03); Immature Granulocytes Pct Auto 0.7 % (0.0-0.5); Lymphocytes Absolute Auto 2.1 10^3/uL (1.2-3.8); Lymphocytes Percent Auto 23.1 % (20.5-60.0); Mean Corpuscular HGB Conc 33.3 g/dL (29.9-35.2); Mean Corpuscular Hemoglobin 30.3 pg (25.9-34.0); Mean Corpuscular Volume 91.1 fL (80.0-94.0); Mean Platelet Volume 10.1 fL (9.5-13.5); Monocytes Absolute Auto 0.7 10^3/uL (0.3-0.8); Monocytes Percent Auto 7.7 % (1.7-12.0); Neutrophils Absolute Auto 6.1 10^3/uL (1.4-6.5); Platelet Count 222 10^3/uL (150-450); Red Blood Count 4.72 10^6/uL (4.70-6.10); Red Cell Distribution Width 12.7 % (11.0-15.0); White Blood Count 9.1 10^3/uL (4.0-11.0)
[2024-01-03 14:26] LABS: Alanine Aminotransferase 44 U/L (16-63); Albumin Globulin Ratio 0.9; Albumin Level 3.5 g/dL (3.4-5.0); Alkaline Phosphatase 78 U/L (46-116); Anion Gap 15.1; Aspartate Amino Transferase 25 U/L (15-37); BUN Creatinine Ratio 7.2; Bilirubin Total 0.9 mg/dL (0.2-1.0); Carbon Dioxide 23.9 mmol/L (21.0-32.0); Chloride 98 mmol/L (98-107); Estimated GFR (African America >60 (>=60); Estimated GFR (Non-African Ame 59 (>=60); Globulin 3.8 g/dL; Glucose 302 mg/dL (74-106); Sodium 133 mmol/L (136-145); Total Protein 7.3 g/dL (6.4-8.2); Troponin I High Sensitivity 8.8 pg/mL (4.0-76.1)
[2024-01-03 14:27] LABS: Magnesium 1.8 mg/dL (1.8-2.4)
[2024-01-03 14:30] LABS: INR 1.06; Prothrombin Time 11.2 sec (9.0-11.6)
[2024-01-03 14:31] LABS: D Dimer 6.73 mg/L FEU (<=0.59)
--- NOTE | 2024-01-03 14:31 | CT_ITS ---
[address] [address] Patient Name: HOLDEN CHANEY MRN: [id number] date: 1965 Sex: M Assigned Patient Location: ER Current Patient Location: ER Accession/Order Number: [id number] Exam Date: 01/03/2024 14:45 Report Date: 01/03/2024 15:27 At the request of: CK GAYLE Procedure: CT angio chest EXAM: CT angio chest HISTORY: chest pressure -sweating and elevated d-dimer COMPARISON: None. TECHNIQUE: Following intravenous administration of 90 cc of Omnipaque 350, axial soft tissue and lung windows of the chest were obtained with coronal and sagittal reformats. 3-D MIPS reconstructions were created and reviewed. CT dose reduction technique was used including Automated Exposure Control. Findings: The heart is nonenlarged. There are coronary artery calcifications. No pericardial effusion. The thoracic aorta is normal caliber. There is adequate opacification of the pulmonary arteries. No evidence of pulmonary embolism. The central airways are patent. No pneumothorax. No pleural effusion. No focal consolidation. Minimal bilateral dependent atelectasis. No enlarged mediastinal, hilar, axillary or supraclavicular lymph nodes. There is fatty infiltration of the liver. No aggressive sclerotic or lytic osseous lesions. Mild multilevel degenerative thoracic spondylosis. CT/CT angio chest IMPRESSION: 1. No pulmonary embolism. Electronically authenticated by: ANA MARTINEZ Date: 01/03/2024 15:27
[2024-01-03 14:32] LABS: Lactate/Lactic Acid 2.6 mmol/L (0.4-2.0)
[2024-01-03 14:39] LABS: Internal Control Within Normal Limits; SARS-CoV-2 Ag NEGATIVE (NEGATIVE)
[2024-01-03] MEDS: 0.9 % SODIUM CHLORIDE 1,000 ML 1000 ML IV (14:41)
[2024-01-03 16:22] LABS: Lactate/Lactic Acid 2.3 mmol/L (0.4-2.0)
--- NOTE | 2024-01-03 16:32 | ED.CHESTPAI1 ---
HPI - Chest Pain General Chief Complaint: Chest Pain Stated Complaint: SOB, SWEATS, CHEST PAIN Time Seen by Provider: 01/03/24 13:43 Source: patient Mode of arrival: walk-in History of Present Illness HPI narrative: The patient is coming to the ER with the complaint of few days history of at least 2 to 3 days history of sweating at the main concern, he mentioned that he have no specific chest pain just discomfort and anxiety in addition to the fact that he has been not having any chest pain, no fever no chills he also has some cough that is productive of whitish sputum The patient mentioned that he also have a history of DVT but that was long time ago and he does not take any anticoagulation at the moment Patient have no dizziness He mentioned that he drinks a lot of water but he also drinks a lot of coffee daily Related Data Home Medications ?Medication ?Instructions ?Recorded ?Confirmed lisinopril 20 mg tablet 20 mg PO DAILY 08/29/23 01/03/24 Allergies Allergy/AdvReac Type Severity Reaction Status Date / Time No Known Drug Allergies Allergy Verified 08/29/23 17:32 Review of Systems ROS Status of ROS 10 or more systems reviewed and unremarkable except as noted in history and below [facility] Medical History (Updated 01/03/24 @ 16:37 by Vee Jauregui MD) HTN (hypertension) ?I10 - Essential (primary) hypertension (ICD-10) Social History (Updated 08/29/23 @ 18:10 by SEAN Rivera) Are you now , , , , never or living with a partner: Exam Narrative Exam Narrative: Nurses notes and vital signs reviewed and patient is not hypoxic. General: Well-appearing and in no apparent distress. Skin: Warm, dry, no pallor noted. No rash. Head: Normocephalic, atraumatic. Neck: Supple, non-tender. Eye: Pupils are equal, round and EOMI. No scleral icterus. Ears, Nose, Mouth, and Throat: TM are clear, no nasal mucosal hypertrophy. Oral mucosa is moist, no posterior oropharynx erythema, uvula is mid-line Cardiovascular: Regular Rate and Rhythm without murmur, gallop or rub. Respiratory: No accessory muscle use or respiratory distress. Lungs are clear to auscultation, no wheezing, rales or rhonchi Chest Wall: no tenderness Back: No midline thoracic or lumbar vertebral tenderness. No CVA tenderness Musculoskeletal: normal ROM, no calf or popliteal tenderness, no lower extremity edema/swelling GI: Abdomen is soft, non-distended. Normal bowel sounds. No masses appreciated. No tenderness to palpation. No rebound, guarding, or rigidity noted. Neurological: A&O x4. No cranial nerve dysfunction observed. No truncal ataxia. Moves all extremities. Sensation intact. Psychiatric: Cooperative and interactive. Normal mood and affect. Constitutional Vital Signs, click to edit/add: Last Vital Signs Temp 97.5 F L 01/03/24 13:38 Pulse 95 H 01/03/24 16:00 Resp 12 01/03/24 16:00 BP 136/92 H 01/03/24 14:41 Pulse Ox 94 L 01/03/24 16:00 O2 Del Method Room Air 01/03/24 14:09 Course Vital Signs Vital signs: Vital Signs Temperature 97.5 F L 01/03/24 13:38 Pulse Rate 103 H 01/03/24 13:38 Respiratory Rate 20 01/03/24 13:38 Blood Pressure 145/104 H 01/03/24 13:38 Pulse Oximetry 97 01/03/24 13:38 Oxygen Delivery Method Room Air 01/03/24 13:38 Temperature 97.5 F L 01/03/24 13:38 Pulse Rate 95 H 01/03/24 16:00 Respiratory Rate 12 01/03/24 16:00 Blood Pressure 136/92 H 01/03/24 14:41 Pulse Oximetry 94 L 01/03/24 16:00 Oxygen Delivery Method Room Air 01/03/24 14:09 MDM - Chest Pain MDM Narrative Medical decision making narrative: The patient EKG showing sinus rhythm with a heart rate of [address] elevation or depression The patient CBC and chemistry showed no acute pathology Troponin was negative D-dimer was elevated and with the patient elevated D-dimer and the fact that he have history of DVT and nonspecific symptoms the patient had a CT angio of the chest showing no acute pathology The patient received IV fluid after his lactic acid came elevated at 2.6 there was some improvement of the test to 2.3 but the patient was feeling much better after IV fluid and lactic acid elevation is nonspecific at the moment specially with no history of infection The patient will be stopping the metformin until he follow-up with his primary care doctor within a week to repeat the kidney function after he had a contrast today The patient is to follow up with primary care physician in next 2-3 days or to return to the emergency department should any of the signs or symptoms worsen or new symptoms develop. The patient agrees with the following Diagnosis and Treatment plan and the patient will be discharged home. Lab Data Labs: Lab Results 01/03/24 01/03/24 01/03/24 Range/Units 13:48 14:06 15:22 WBC 9.1 (4.0-11.0) 10^3/uL RBC 4.72 (4.70-6.10) 10^6/uL Hgb 14.3 (14.0-18.0) g/dL Hct 43.0 (42.0-54.0) % MCV 91.1 (80.0-94.0) fL MCH 30.3 (25.9-34.0) pg MCHC 33.3 (29.9-35.2) g/dL RDW 12.7 (11.0-15.0) % Plt Count 222 (150-450) 10^3/uL MPV 10.1 (9.5-13.5) fL Neut % (Auto) 67.0 (43.0-75.0) % Lymph % (Auto) 23.1 (20.5-60.0) % [place] % (Auto) 7.7 (1.7-12.0) % Eos % (Auto) 1.1 (0.9-7.0) % Baso % (Auto) 0.4 (0.2-2.0) % Neut # (Auto) 6.1 (1.4-6.5) 10^3/uL Lymph # (Auto) 2.1 (1.2-3.8) 10^3/uL [place] # (Auto) 0.7 (0.3-0.8) 10^3/uL Eos # (Auto) 0.1 (0.0-0.7) 10^3/uL Baso # (Auto) 0.0 (0.0-0.1) 10^3/uL Abs Immat Gran (auto) 0.06 H (0.00-0.03) 10^3/uL Imm/Tot Granulo (auto) 0.7 H (0.0-0.5) % PT 11.2 (9.0-11.6) sec INR 1.06 D-Dimer 6.73 H* (<=0.59) mg/L FEU Sodium 133 L (136-145) mmol/L Potassium 4.0 (3.5-5.1) mmol/L Chloride 98 (98-107) mmol/L Carbon Dioxide 23.9 (21.0-32.0) mmol/L Anion Gap 15.1 BUN 9.0 (7.0-18.0) mg/dL Creatinine 1.25 (0.70-1.30) mg/dL Est GFR ( Amer) >60 (>=60) Est GFR (Non-Af Amer) 59 L (>=60) BUN/Creatinine Ratio 7.2 Glucose 302 H (74-106) mg/dL Lactate 2.6 H* 2.3 H* (0.4-2.0) mmol/L Calcium 9.0 (8.5-10.1) mg/dL Magnesium 1.8 (1.8-2.4) mg/dL Total Bilirubin 0.9 (0.2-1.0) mg/dL AST 25 (15-37) U/L ALT 44 (16-63) U/L Alkaline Phosphatase 78 (46-116) U/L Troponin I High Sens 8.8 (4.0-76.1) pg/mL Total Protein 7.3 (6.4-8.2) g/dL Albumin 3.5 (3.4-5.0) g/dL Globulin 3.8 g/dL Albumin/Globulin Ratio 0.9 SARS-CoV-2 Ag (CV2AG) Negative (NEGATIVE) Discharge Plan Discharge Stand Alone Forms: Portal Instructions Chief Complaint: Chest Pain Clinical Impression: Generalized weakness, Atypical chest pain, D-dimer, elevated Patient Disposition: Home, Self-Care Time of Disposition Decision: 16:37 Condition: Good Prescriptions / Home Meds: Discontinued metformin 500 mg tablet 500 mg PO BID No Action lisinopril 20 mg tablet 20 mg PO DAILY Print Language: Mohawk Instructions: Dehydration (DC), Weakness (ED) Additional Instructions: please stop taking Metformin until you see your family doctor because you had cotnrast today Referrals: Jared Augustin MD [Primary Care Provider] - 1 week
== END 2024-01-03 16:51 | disposition home or self-care (01) ==
PROVIDERS: Emergency Provider Emergency Medicine; PCP Family Medicine
DX: R07.89 Other chest pain (principal); R53.1 Weakness; R79.1 Abnormal coagulation profile; Z20.822 Contact with and (suspected) exposure to COVID-19; Z86.718 Personal history of other venous thrombosis and embolism
CPT/HCPCS: 36415; 71045; 71275; 80053; 83605; 83735; 84484; 85025; 85378; 85610; 87811; 93005; 99285; Q9967

== ENCOUNTER 2024-01-27 08:31 | Outpatient (OUT) | payer BC, SELFPAY ==
--- OUTSIDE RECORDS SUMMARY | 2024-01-27 08:39 | XMS_ITS | CCD ---
Author Organization [facility] Care Team Providers Care Manager Machine Name Role Phone DR JESÚS BEEBE Primary Care Unavailable DR JESÚS BEEBE Admitting Unavailable CONCEPCIÓN, DR ESPINOSA Attending Unavailable CONCECPIÓN, DR ESPINOSA Consulting Unavailable DR JESÚS BEEBE Primary Care Unavailable DR JESÚS BEEBE Admitting Unavailable CONCEPCIÓN, DR ESPINOSA Attending Unavailable CONCEPCIÓN, DR ESPINOSA Consulting Unavailable DR JESÚS BEEBE Primary Care Unavailable FRANKY ROMERO Admitting Unavailable FRANKY ROMERO Attending Unavailable FARNKY ROMERO Consulting Unavailable Jaime Wooten Unavailable [phone] Problems Active Problems Problem Classification Problem Date [...] spec) Detected Critically abnormal NOT DETECTED [facility] Comment on above: Result Comment: This test is not yet approved or cleared by the [place] FDA. When there are no FDA-approved or cleared tests available, and other criteria are met, FDA can make tests available under an emergency access mechanism called an Emergency Use Authorization (EUA). The EUA for this test is supported by the Plant Attendant of Health and Human Service's (HHS's) declaration [...] used). Performed By: #### C VDTBH #### [facility] [address] [address] [address] Franky Olguin [facility]on SARS-CoV-2 (COVID-19) RNA ABEL+probe Ql (Unsp spec) Not detected Normal NOT DETECTED [facility] Comment on above: Result Comment: This test is not yet approved or cleared by the [place] FDA. When there are no FDA-approved or cleared tests available, and other criteria are met, FDA can make tests available under an emergency access mechanism called an Emergency Use Authorization (EUA). The EUA for this test is supported by the Plant Attendant of Health and Human Service's (HHS's) declaration [...] SARS-CoV-2. Performed By: #### C VDTBH #### [facility] [address] [place] [address] Dr. Franky Olguin CBC AUTO DIFFon 03-25-2021 BASO # 0.1 103/ul Normal 0.0-0.1 [facility] Comment on above: Performed By: #### C BC #### [facility] [address] [place] [address] Dr. Franky Olguin Basophils/100 WBC (Bld) 0.8 % Normal 0.2-2.0 [facility] Comment on above: Performed By: #### C BC #### [facility] [address] [place] [address] Dr. Franky Olguin EO # 0.2 103/ul Normal 0.0-0.7 [facility] Comment on above: Performed By: #### C BC #### [facility] [address] [place] [address] Dr. Franky Olguin Eosinophils/100 WBC (Bld) 2.3 % Normal 0.9-7.0 [facility] Comment on above: Performed By: #### C BC #### [facility] [address] [place] [address] Dr. Franky Olguin Erythrocyte distribution width (RBC) [Ratio] 13.0 % Normal 11.0-15.0 [facility] Comment on above: Performed By: #### C BC #### [facility] [address] [place] [address] Dr. Franky Olguin Hematocrit (Bld) [Volume fraction] 44.9 % Normal 42.0-54.0 [facility] Comment on above: Performed By: #### C BC #### [facility] [address] [place] [address] Dr. Franky Olguin Hemoglobin (Bld) [Mass/Vol] 14.5 g/dL Normal 14.0-18.0 [facility] Comment on above: Performed By: #### C BC #### [facility] [address] [place] [address] Dr. Franky Olguin IG # 0.03 10e3/ul Normal 0.00-0.03 [facility] Comment on above: Performed By: #### C BC #### [facility] [address] [place] [address] Dr. Franky Olguin IG % 0.4 % Normal 0.0-0.5 [facility] Comment on above: Performed By: #### C BC #### [facility] [address] [place] [address] Dr. Franky Olguin LYMPH # 2.3 103/ul Normal 1.2-3.8 [facility] Comment on above: Performed By: #### C BC #### [facility] [address] [place] [address] Dr. Franky Olguin Lymphocytes/100 WBC (Bld) 30.3 % Normal 20.5-60.0 [facility] Comment on above: Performed By: #### C BC #### [facility] [address] [place] [address] Dr. Franky Olguin MANUAL DIFF REQ NO Normal [facility] Comment on above: Performed By: #### C BC #### [facility] [address] [place] [address] Dr. Franky Olguin MCH (RBC) [Entitic mass] 30.5 pg Normal 25.9-34.0 [facility] Comment on above: Performed By: #### C BC #### [facility] [address] [place] [address] Dr. Franky Olguin MCHC (RBC) [Mass/Vol] 32.3 g/dL Normal 29.9-35.2 [facility] Comment on above: Performed By: #### C BC #### [facility] [address] [place] [address] Dr. Franky Olguin MCV (RBC) [Entitic vol] 94.5 fL Critically high 80.0-94.0 [facility] Comment on above: Performed By: #### C BC #### [facility] [address] [place] [address] Dr. Franky Olguin MONO # 0.6 103/ul Normal 0.3-0.8 [facility] Comment on above: Performed By: #### C BC #### [facility] [address] [place] [address] Dr. Franky Olguin Monocytes/100 WBC (Bld) 8.2 % Normal 1.7-12.0 [facility] Comment on above: Performed By: #### C BC #### [facility] [address] [place] [address] Dr. Franky Olguin NEUT # 4.5 103/ul Normal 1.4-6.5 [facility] Comment on above: Performed By: #### C BC #### [facility] [address] [place] [address] Dr. Franky Olguin Neutrophils/100 WBC (Bld) 58.0 % Normal 43.0-75.0 [facility] Comment on above: Performed By: #### C BC #### [facility] [address] [place] [address] Dr. Franky Olguin Platelet mean volume (Bld) [Entitic vol] 9.9 fL Normal 9.5-13.5 [facility] Comment on above: Performed By: #### C BC #### [facility] [address] [place] [address] Dr. Franky Olguin PLT 199 103/ul Normal 150-450 [facility] Comment on above: Performed By: #### C BC #### [facility] [address] [place] [address] Dr. Franky Olguin RBC 4.75 106/ul Normal 4.70-6.10 [facility] Comment on above: Performed By: #### C BC #### [facility] [address] [place] [address] Dr. Franky Olguin WBC 7.7 103/ul Normal 4.0-11.0 [facility] Comment on above: Performed By: #### C BC #### [facility] [address] [place] [address] Dr. Franky Olguin FREE THYROXINE INDEX T7on FTI 1.92 Normal [facility] Comment on above: Performed By: #### L IPID, CMP, T7, TSH #### [facility] [address] [place] [address] Dr. Franky Olguin T3U 30.0 % Normal 23.5-40.5 [facility] Comment on above: Performed By: #### L IPID, CMP, T7, TSH #### [facility] [address] [address] [address] Franky Olguin T4 [Mass/Vol] 6.40 ug/dL Normal 5.53-11.00 [facility] Comment on above: Performed By: #### L IPID, CMP, T7, TSH #### [facility] [address] [address] [address] Franky Olguin GLYCOHEMOGLOBIN A1Con 2020 ADA RECOMMENDATION ADA THERAPEUTIC TARGET 6.0 - 7.0 ACTION SUGGESTED > 7.0 Normal [facility] Comment on above: Performed By: #### A 1C #### [facility] [address] [place] [address] Dr. Franky Olguin Glucose [Mass/Vol] 151 mg/dL Normal [facility] Comment on above: Performed By: #### A 1C #### [facility] [address] [address] [address] Franky Olguin HbA1c (Bld) [Mass fraction] 6.9 % Critically high <=6.0 [facility] Comment on above: Performed By: #### A 1C #### [facility] [address] [place] [address] Dr. Franky Olguin LIPID PROFILEon 03-25-2021 CHOL-HDL RATIO NORM SEE BELOW Normal [facility] Comment on above: Result Comment: 3.3 - 4.4 LOW RISK 4.4 - 7.1 AVERAGE RISK 7.1 - 11.0 MODERATE RISK >11.0 HIGH RISK Performed By: #### L IPID, CMP, T7, TSH #### [facility] [address] [address] [address] Franky Olguin Cholesterol [Mass/Vol] 167 mg/dL Normal <=200 [facility] Comment on above: Performed By: #### L IPID, CMP, T7, TSH #### [facility] [address] [address] [address] Franky Olguin Cholesterol in HDL [Mass/Vol] 37 mg/dL Normal [facility] Comment on above: Performed By: #### L IPID, CMP, T7, TSH #### [facility] [address] [address] [address] Franky Olguin Cholesterol in LDL [Mass/Vol] 93.4 mg/dL Normal [facility] Comment on above: Performed By: #### L IPID, CMP, T7, TSH #### [facility] [address] [address] [address] Franky Olguin Cholesterol.total/Cho lesterol in HDL [Mass ratio] 4.5 {ratio} Normal [facility] Comment on above: Performed By: #### L IPID, CMP, T7, TSH #### [facility] [address] [address] [address] Franky Olguin HDL NORMAL > or = 60 mg/dl - LOW CARDIOVASCULAR RISK <40 mg/dl - HIGH CARDIOVASCULAR RISK Normal [facility] Comment on above: Performed By: #### L IPID, CMP, T7, TSH #### [facility] [address] [address] [address] Franky Olguin LDL CALC NORMAL SEE BELOW Normal [facility] Comment on above: Result Comment: <100 mg/dl OPTIMAL 100 - 129 mg/dl NEAR OR ABOVE OPTIMAL 130 - 159 mg/dl BORDERLINE HIGH 160 - 189 mg/dl HIGH >190 mg/dl VERY HIGH Performed By: #### L IPID, CMP, T7, TSH #### [facility] [address] [address] [address] Franky Olguin Triglyceride [Mass/Vol] 183 mg/dL Critically high <=150 [facility] Comment on above: Performed By: #### L IPID, CMP, T7, TSH #### [facility] [address] [address] [address] Franky Olguin VLDL CALC 36.6 mg/dL Normal [facility] Comment on above: Performed By: #### L IPID, CMP, T7, TSH #### [facility] [address] [address] [address] Franky Olguin PROF 14(COMP METB)on 021 Albumin [Mass/Vol] 3.9 g/dL Normal 3.5-5.0 [facility] Comment on above: Performed By: #### L IPID, CMP, T7, TSH #### [facility] [address] [address] [address] Franky Olguin Albumin/Globulin [Mass ratio] 1.0 {ratio} Normal [facility] Comment on above: Performed By: #### L IPID, CMP, T7, TSH #### [facility] [address] [place] [address] Dr. Franky Olguin ALP [Catalytic activity/Vol] 68 U/L Normal 38-126 [facility] Comment on above: Performed By: #### L IPID, CMP, T7, TSH #### [facility] [address] [place] [address] Dr. Franky Olguin ALT [Catalytic activity/Vol] 89 U/L Critically high 21-72 [facility] Comment on above: Performed By: #### L IPID, CMP, T7, TSH #### [facility] [address] [address] [address] Franky Olguin Anion gap [Moles/Vol] 13.1 mmol/L Normal [facility] Comment on above: Performed By: #### L IPID, CMP, T7, TSH #### [facility] [address] [place] [address] Dr. Franky Olguin AST [Catalytic activity/Vol] 56 U/L Normal 17-59 [facility] Comment on above: Performed By: #### L IPID, CMP, T7, TSH #### [facility] [address] [place] [address] Dr. Franky Olguin Bilirubin [Mass/Vol] 0.7 mg/dL Normal 0.2-1.3 [facility] Comment on above: Performed By: #### L IPID, CMP, T7, TSH #### [facility] [address] [address] [address] Franky Olguin Calcium [Mass/Vol] 9.5 mg/dL Normal 8.4-10.2 [facility] Comment on above: Performed By: #### L IPID, CMP, T7, TSH #### [facility] [address] [address] [address] Franky Olguin Chloride [Moles/Vol] 104 mmol/L Normal 98-107 [facility] Comment on above: Performed By: #### L IPID, CMP, T7, TSH #### [facility] [address] [place] [address] Dr. Franky Olguin CO2 [Moles/Vol] 25.1 mmol/L Normal 22.0-30.0 [facility] Comment on above: Performed By: #### L IPID, CMP, T7, TSH #### [facility] [address] [place] [address] Dr. Franky Olguin Creatinine [Mass/Vol] 1.19 mg/dL Normal 0.66-1.25 [facility] Comment on above: Performed By: #### L IPID, CMP, T7, TSH #### [facility] [address] [place] [address] Dr. Franky Olguin EGFR-AF TUNISIAN >60 Normal >=60 [facility] Comment on above: Performed By: #### L IPID, CMP, T7, TSH #### [facility] [address] [place] [address] Dr. Franky Olguin EGFR-NON AF TUNISIAN >60 Normal >=60 [facility] Comment on above: Performed By: #### L IPID, CMP, T7, TSH #### [facility] [address] [place] [address] Dr. Franky Olguin Globulin (S) [Mass/Vol] 4.0 g/dL Normal [facility] Comment on above: Performed By: #### L IPID, CMP, T7, TSH #### [facility] [address] [place] [address] Dr. Franky Olguin Glucose [Mass/Vol] 133 mg/dL Critically high 74-106 [facility] Comment on above: Performed By: #### L IPID, CMP, T7, TSH #### [facility] [address] [place] [address] Dr. Franky Olguin Potassium [Moles/Vol] 4.2 mmol/L Normal 3.4-5.0 [facility] Comment on above: Performed By: #### L IPID, CMP, T7, TSH #### [facility] [address] [address] [address] Franky Olguin Protein [Mass/Vol] 7.9 g/dL Normal 6.1-8.2 [facility] Comment on above: Performed By: #### L IPID, CMP, T7, TSH #### [facility] [address] [place] [address] Dr. Franky Olguin Sodium [Moles/Vol] 138 mmol/L Normal 137-145 [facility] Comment on above: Performed By: #### L IPID, CMP, T7, TSH #### [facility] [address] [place] [address] Dr. Franky Olguin Urea nitrogen [Mass/Vol] 19.0 mg/dL Normal 9.0-20.0 [facility] Comment on above: Performed By: #### L IPID, CMP, T7, TSH #### [facility] [address] [place] [address] Dr. Franky Olguin Urea nitrogen/Creatinine [Mass ratio] 16.0 mg/mg Normal [facility] Comment on above: Performed By: #### L IPID, CMP, T7, TSH #### [facility] [address] [place] [address] Dr. Franky Olguin TSHon 03-25-2021 TSH 4.571 uIU/mL Normal 0.470-4.[address] [facility] Comment on above: Performed By: #### L IPID, CMP, T7, TSH #### [facility] [address] [place] [address] Dr. Franky Olguin TSH RANGE SEE BELOW Normal [facility] Comment on above: Result Comment: <0.3 4 UIU/ml HYPERTHYROID 0.34-5.60 UIU/ml EUTHYROID >5.60 UIU/ml HYPOTHYROID Performed By: #### L IPID, CMP, T7, TSH #### [facility] [address] [address] [address] Franky Olguin US venous duplex LE LTon US venous duplex LE LT [facility] [place] [address] [place] [address] Ultrasound Report Signed Patient: Holden Askew MR#: [id number] 98 : 1965 Acct:[id number] Age/Sex: 56 / M ADM Date: 03/12/21 Loc: [facility] Room: Type: [facility] CLI Attending Dr: Jaime Wooten MD [...] Jaime Wooten MD03/18/2021 3:20 PM [facility] Tech: Kamala Wells Transcribed By: [facility] 03/18/21 1520 Dictated By: Jaime Wooten MD 03/18/21 1518 Signed By: 03/18/21 1520 [facility] Auth for Release of Medical Recordson 02-02-2021 Auth for Release of Medical Records [id number]# 1.00CD:127 [facility] Formson 01-28-2021 Forms [id number] #1.00CD:127 Normal [facility] Formson 01-21-2021 Forms [id number] #1.00CD:127 Normal [facility] Screenson 12-23-2020 Screens [id number] #1.00CD:127 Normal [facility] Screens [id number] #1.00CD:127 Normal [facility] Ambulatory Clinical Summaryo n 12-18-2020 Ambulatory Clinical Summary {[id number]}CD:[id number] Normal [facility] Formson 12-18-2020 Forms [id number] #1.00CD:127 Normal [facility] General Surgery Office/Clini c Noteon 12-17-2020 General [...] by Dr. Jones. He has been using [id number] hose for several years now and he [...] also tel (more content not included)... Normal [facility] Comment on above: Result Comment: Elec tronically Signed By: ERICA CARRERA, Cecilia Jeffrey\.waqas\Date and Time Signed: 12/17/20 13:46 EDT Patient Correspondenceon Patient Correspondence 104.... [id number] #1.00CD:127 Normal [facility] Retail - Clinical Noteon Retail - Clinical Note [id number] #1.00CD:127 [facility] Vital Signs Date Time Vital Sign Value Performing Clinician Facility 03-12-2021 13:30-0400 Body height 185.42 cm Jaime Wooten Other [facility] Other 03-12-2021 13:30-0400 Body mass index (BMI) [Ratio] 40.63 kg/m2 Jaime Wooten Other [facility] Other 03-12-2021 13:30-0400 Body weight 139.71 kg Jaime Wooten Other [facility] Other 03-12-2021 13:30-0400 Diastolic blood pressure 118 mm[Hg] Jaime Wooten Other [facility] Other 03-12-2021 13:30-0400 Systolic blood pressure 161 mm[Hg] Jaime Wooten Other [facility] Other Encounters Encounter Date Encounter Type Care Provider Facility Start: 07-07-2021 End: 07-07-[address] JESÚS BEEBE Facility:[facility] Start: 05-13-2021 End: 05-13-[address] JSEÚS BEEBE Facility:[facility] Start: 04-03-2021 Encounter for genera l adult medical examination without abnormal findings DR JESÚS BEEBE [facility] Start: 03-25-2021 End: 03-26-[address] JESÚS BEEBE Facility:[facility] Start: 03-25-2021 End: 03-26-2021 Encounter for general adult medical examination without abnormal findings DR JESÚS BEEBE Facility:[facility] Start: 03-12-2021 Office outpatient vi sit 15 minutes Jaime BERNSTEIN Vascular Surgery Procedures Date Procedure Procedure Detail Performing Clinician Start: 03-25-[address] GRETCHEN BEEBE Comment on above: Performed By: #### P [facility] #### [facility] [address] [place] [address] Dr. Franky Olguin Payers Date Payer Category Payer Unknown [id number] [id number] [id number] 1965 Unknown [id number] 2.16.84 [id number] 1965 Unknown [id number] [id number] [id number] 1959 Unknown [id number] Social History Date Type Detail Facility Sex Assigned At [facility] Other Evaluation note 03-12-2021 Note Date & [...] lower extremity with pain (ICD-10 - I83.812) [facility] Other History general Narrative - Reported Note Date & Type Note Facility History general Narrative - Reported Type Medical History Varicose veins Surgical History vein procedure (Dr. Jones) [facility] Other Summary Purpose Family History No Family [...] content) DATE CREATED AUTHOR 02/03/2021 Derek Shepherd [facility] DATE CREATED AUTHOR AUTHOR'S ORGANIZ ATION 07/07/2021 [facility] DATE CREATED AUTHOR AUTHOR'S ORGANIZ ATION 07/10/2021 [facility] REASON FOR VISIT (unrecogniz ed [...] BE BASED ON THE PRIMARY CLINICAL RECORDS. [employer] provides no warranty or guarantee of the accuracy or completeness of information in this document.
[2024-01-27 09:00] LABS: Estimated Average Glucose 263 mg/dL; Glycohemoglobin A1C 10.8 % (4.5-6.2)
[2024-01-27 09:17] LABS: Basophils Percent Auto 0.5 % (0.2-2.0); Eosinophils Absolute Auto 0.1 10^3/uL (0.0-0.7); Eosinophils Percent Auto 1.8 % (0.9-7.0); Hematocrit 46.5 % (42.0-54.0); Hemoglobin 15.2 g/dL (14.0-18.0); Immature Granulocytes Abs Auto 0.06 10^3/uL (0.00-0.03); Immature Granulocytes Pct Auto 0.8 % (0.0-0.5); Lymphocytes Absolute Auto 2.6 10^3/uL (1.2-3.8); Lymphocytes Percent Auto 32.8 % (20.5-60.0); Mean Corpuscular HGB Conc 32.7 g/dL (29.9-35.2); Mean Corpuscular Hemoglobin 29.9 pg (25.9-34.0); Mean Corpuscular Volume 91.4 fL (80.0-94.0); Mean Platelet Volume 10.4 fL (9.5-13.5); Monocytes Absolute Auto 0.7 10^3/uL (0.3-0.8); Monocytes Percent Auto 8.8 % (1.7-12.0); Neutrophils Absolute Auto 4.3 10^3/uL (1.4-6.5); Neutrophils Percent Auto 55.3 % (43.0-75.0); Platelet Count 217 10^3/uL (150-450); Red Blood Count 5.09 10^6/uL (4.70-6.10); Red Cell Distribution Width 13.3 % (11.0-15.0); White Blood Count 7.8 10^3/uL (4.0-11.0)
[2024-01-27 09:50] LABS: Alanine Aminotransferase 53 U/L (16-63); Albumin Globulin Ratio 1.1; Alkaline Phosphatase 76 U/L (46-116); Aspartate Amino Transferase 32 U/L (15-37); BUN Creatinine Ratio 12.6; Bilirubin Total 1.2 mg/dL (0.2-1.0); Calcium 9.3 mg/dL (8.5-10.1); Chloride 100 mmol/L (98-107); Chol HDL Ratio 4.8; Cholesterol 186 mg/dL (<=200); Estimated GFR (African America >60 (>=60); Estimated GFR (Non-African Ame >60 (>=60); Free T3 3.28 pg/mL (2.18-3.98); Globulin 3.5 g/dL; Glucose 334 mg/dL (74-106); HDL Cholesterol 39 mg/dL (40-60); Sodium 135 mmol/L (136-145); Thyroid Stimulating Hormone 3.156 uIU/mL (0.358-3.740); Total Protein 7.5 g/dL (6.4-8.2); Triglycerides 341 mg/dL (<=150); VLDL CHOLESTEROL 68.2 mg/dL
[2024-01-27 11:26] LABS: Prostate Specific Antigen Scrn 0.69 ng/mL (<=4.00)
== END 2024-01-27 08:32 | disposition home or self-care (01) ==
LOC: LAB 08:33
PROVIDERS: PCP Family Medicine; Visit Provider Family Medicine
DX: Z00.00 Encounter for general adult medical examination without abnormal findings (principal)
CPT/HCPCS: 36415; 80053; 80061; 83036; 84436; 84443; 84481; 85025; G0103

== ENCOUNTER 2024-04-04 06:40 | Outpatient (OUT) | payer BC, SELFPAY ==
--- NOTE | 2024-04-04 06:43 | MR_ITS ---
[address] [address] Patient Name: HOLDEN CHANEY MRN: [id number] date: 1965 Sex: M Assigned Patient Location: MRI Current Patient Location: Accession/Order Number: [id number] Exam Date: 04/04/2024 06:50 Report Date: 04/05/2024 08:45 At the request of: JESÚS BEEBE Procedure: MR knee LT wo con EXAMINATION: MR knee LT wo con HISTORY: osteoarthritis of left knee M17.12 ; chronic left knee pain COMPARISON: XR knee left 12/12/2023 TECHNIQUE: A complete multi-planar MRI was performed. FINDINGS: MEDIAL COMPARTMENT MEDIAL MENISCUS: Absence versus marked maceration of the body of the meniscus with extension into the posterior junction and superior surface of the posterior horn. No visible separate fragment or flipped fragment. CARTILAGE: Thinning. No focal defect. BONES: Degenerative osteophytes along the articular margins. MCL AND MEDIAL CAPSULE: Normal medial collateral ligament and medial capsule. LATERAL COMPARTMENT LATERAL MENISCUS: Radial tear involving mid body. CARTILAGE: Thinning. No focal defect. BONES: Degenerative osteophytes along the articular margins. LCL/POSTEROLAT COMPLEX: Normal lateral collateral ligament, fascicles, lateral capsule and ligaments. ANTERIOR COMPARTMENT PATELLA: Degenerative osteophyte along the articular margins. CARTILAGE: Areas of complete loss of cartilage, most notable involving the lateral facet where there is a degenerative osteophyte along the superior margin of the patellar groove contacting the bony margin of the patella. TENDONS: Normal. EFFUSION: None. No synovitis or loose bodies. ACL: Normal appearing ligament. PCL: Normal appearing ligament. MENISCOFEMORAL: Normal meniscofemoral ligaments. OTHER: Negative. MR/MR knee LT wo con IMPRESSION: 1. Tear and significant degenerative changes of the medial meniscus. 2. Radial tear of mid body lateral meniscus. 3. Moderate thinning of the articular cartilage involving the medial and lateral compartments. 4. Areas of complete loss of cartilage overlying the patella. Electronically authenticated by: HECTOR MONTGOMERY Date: 04/05/2024 08:45
--- OUTSIDE RECORDS SUMMARY | 2024-04-04 06:43 | XMS_ITS | CCD ---
Author Organization [facility] Care Team Providers Care Bushwalking Guide Name Role Phone DR JESÚS BEEBE Primary [...] spec) Detected Critically abnormal NOT DETECTED [facility] Comment on above: Result Comment: This test is not yet approved or cleared by the [place] FDA. When there are no FDA-approved or cleared tests available, and other criteria are met, FDA can make tests available under an emergency access mechanism called an Emergency Use Authorization (EUA). The EUA for this test is supported by the [employer] of Health and Human Service's (HHS's) declaration [...] used). Performed By: #### C VDTBH #### [facility] [address] [address] [address] Franky Olguin Covid-19 PCR ([facility])on SARS-CoV-2 (COVID-19) RNA ABEL+probe Ql (Unsp spec) Not detected Normal NOT DETECTED [facility] Comment on above: Result Comment: This test is not yet approved or cleared by the [place] FDA. When there are no FDA-approved or cleared tests available, and other criteria are met, FDA can make tests available under an emergency access mechanism called an Emergency Use Authorization (EUA). The EUA for this test is supported by the [employer] of Health and Human Service's (HHS's) declaration [...] SARS-CoV-2. Performed By: #### C VDTBH #### [facility] [address] [place] [address] Dr. Franky Olguin CBC AUTO DIFFon 03-25-2021 BASO # 0.1 103/ul Normal 0.0-0.1 [facility] Comment on above: Performed By: #### C BC #### [facility] [address] [place] [address] Dr. Franky Olguin Basophils/100 WBC (Bld) 0.8 % Normal 0.2-2.0 [facility] Comment on above: Performed By: #### C BC #### [facility] [address] [place] [address] Dr. Franky Olguin EO # 0.2 103/ul Normal 0.0-0.7 [facility] Comment on above: Performed By: #### C BC #### [facility] [address] [place] [address] Dr. Franky Olguin Eosinophils/100 WBC (Bld) 2.3 % Normal 0.9-7.0 [facility] Comment on above: Performed By: #### C BC #### [facility] [address] [place] [address] Dr. Franky Olguin Erythrocyte distribution width (RBC) [Ratio] 13.0 % Normal 11.0-15.0 [facility] Comment on above: Performed By: #### C BC #### [facility] [address] [place] [address] Dr. Franky Olguin Hematocrit (Bld) [Volume fraction] 44.9 % Normal 42.0-54.0 [facility] Comment on above: Performed By: #### C BC #### [facility] [address] [place] [address] Dr. Franky Olguin Hemoglobin (Bld) [Mass/Vol] 14.5 g/dL Normal 14.0-18.0 [facility] Comment on above: Performed By: #### C BC #### [facility] [address] [place] [address] Dr. Franky Olguin IG # 0.03 10e3/ul Normal 0.00-0.03 [facility] Comment on above: Performed By: #### C BC #### [facility] [address] [place] [address] Dr. Franky Olguin IG % 0.4 % Normal 0.0-0.5 [facility] Comment on above: Performed By: #### C BC #### [facility] [address] [place] [address] Dr. Franky Olguin LYMPH # 2.3 103/ul Normal 1.2-3.8 [facility] Comment on above: Performed By: #### C BC #### [facility] [address] [place] [address] Dr. Franky Olguin Lymphocytes/100 WBC (Bld) 30.3 % Normal 20.5-60.0 [facility] Comment on above: Performed By: #### C BC #### [facility] [address] [place] [address] Dr. Franky Olguin MANUAL DIFF REQ NO Normal [facility] Comment on above: Performed By: #### C BC #### [facility] [address] [place] [address] Dr. Franky Olguin MCH (RBC) [Entitic mass] 30.5 pg Normal 25.9-34.0 [facility] Comment on above: Performed By: #### C BC #### [facility] [address] [place] [address] Dr. Franky Olguin MCHC (RBC) [Mass/Vol] 32.3 g/dL Normal 29.9-35.2 [facility] Comment on above: Performed By: #### C BC #### [facility] [address] [place] [address] Dr. Franky Olguin MCV (RBC) [Entitic vol] 94.5 fL Critically high 80.0-94.0 [facility] Comment on above: Performed By: #### C BC #### [facility] [address] [place] [address] Dr. Franky Olguin MONO # 0.6 103/ul Normal 0.3-0.8 [facility] Comment on above: Performed By: #### C BC #### [facility] [address] [place] [address] Dr. Franky Olguin Monocytes/100 WBC (Bld) 8.2 % Normal 1.7-12.0 [facility] Comment on above: Performed By: #### C BC #### [facility] [address] [place] [address] Dr. Franky Olguin NEUT # 4.5 103/ul Normal 1.4-6.5 [facility] Comment on above: Performed By: #### C BC #### [facility] [address] [place] [address] Dr. Franky Olguin Neutrophils/100 WBC (Bld) 58.0 % Normal 43.0-75.0 [facility] Comment on above: Performed By: #### C BC #### [facility] [address] [place] [address] Dr. Franky Olguin Platelet mean volume (Bld) [Entitic vol] 9.9 fL Normal 9.5-13.5 [facility] Comment on above: Performed By: #### C BC #### [facility] [address] [place] [address] Dr. Franky Olguin PLT 199 103/ul Normal 150-450 [facility] Comment on above: Performed By: #### C BC #### [facility] [address] [place] [address] Dr. Franky Olguin RBC 4.75 106/ul Normal 4.70-6.10 [facility] Comment on above: Performed By: #### C BC #### [facility] [address] [place] [address] Dr. Franky Olguin WBC 7.7 103/ul Normal 4.0-11.0 [facility] Comment on above: Performed By: #### C BC #### [facility] [address] [place] [address] Dr. Franky Olguin FREE THYROXINE INDEX T7on FTI 1.92 Normal [facility] Comment on above: Performed By: #### L IPID, CMP, T7, TSH #### [facility] [address] [place] [address] Dr. Franky Olguin T3U 30.0 % Normal 23.5-40.5 [facility] Comment on above: Performed By: #### L IPID, CMP, T7, TSH #### [facility] [address] [address] [address] Franky Olguin T4 [Mass/Vol] 6.40 ug/dL Normal 5.53-11.00 [facility] Comment on above: Performed By: #### L IPID, CMP, T7, TSH #### [facility] [address] [address] [address] Franky Olguin GLYCOHEMOGLOBIN A1Con 2020 ADA RECOMMENDATION ADA THERAPEUTIC TARGET 6.0 - 7.0 ACTION SUGGESTED > 7.0 Normal [facility] Comment on above: Performed By: #### A 1C #### [facility] [address] [place] [address] Dr. Franky Olguin Glucose [Mass/Vol] 151 mg/dL Normal [facility] Comment on above: Performed By: #### A 1C #### [facility] [address] [address] [address] Franky Olguin HbA1c (Bld) [Mass fraction] 6.9 % Critically high <=6.0 [facility] Comment on above: Performed By: #### A 1C #### [facility] [address] [place] [address] Dr. Franky Olguin LIPID PROFILEon 03-25-2021 CHOL-HDL RATIO NORM SEE BELOW Normal [facility] Comment on above: Result Comment: 3.3 - 4.4 LOW RISK 4.4 - 7.1 AVERAGE RISK 7.1 - 11.0 MODERATE RISK >11.0 HIGH RISK Performed By: #### L IPID, CMP, T7, TSH #### [facility] [address] [address] [address] Franky Olguin Cholesterol [Mass/Vol] 167 mg/dL Normal <=200 [facility] Comment on above: Performed By: #### L IPID, CMP, T7, TSH #### [facility] [address] [address] [address] Franky Olguin Cholesterol in HDL [Mass/Vol] 37 mg/dL Normal [facility] Comment on above: Performed By: #### L IPID, CMP, T7, TSH #### [facility] [address] [address] [address] Franky Olguin Cholesterol in LDL [Mass/Vol] 93.4 mg/dL Normal [facility] Comment on above: Performed By: #### L IPID, CMP, T7, TSH #### [facility] [address] [address] [address] Franky Olguin Cholesterol.total/Cho lesterol in HDL [Mass ratio] 4.5 {ratio} Normal [facility] Comment on above: Performed By: #### L IPID, CMP, T7, TSH #### [facility] [address] [address] [address] Franky Olguin HDL NORMAL > or = 60 mg/dl - LOW CARDIOVASCULAR RISK <40 mg/dl - HIGH CARDIOVASCULAR RISK Normal [facility] Comment on above: Performed By: #### L IPID, CMP, T7, TSH #### [facility] [address] [address] [address] Franky Olguin LDL CALC NORMAL SEE BELOW Normal [facility] Comment on above: Result Comment: <100 mg/dl OPTIMAL 100 - 129 mg/dl NEAR OR ABOVE OPTIMAL 130 - 159 mg/dl BORDERLINE HIGH 160 - 189 mg/dl HIGH >190 mg/dl VERY HIGH Performed By: #### L IPID, CMP, T7, TSH #### [facility] [address] [address] [address] Franky Olguin Triglyceride [Mass/Vol] 183 mg/dL Critically high <=150 [facility] Comment on above: Performed By: #### L IPID, CMP, T7, TSH #### [facility] [address] [address] [address] Franky Olguin VLDL CALC 36.6 mg/dL Normal [facility] Comment on above: Performed By: #### L IPID, CMP, T7, TSH #### [facility] [address] [address] [address] Franky Olguin PROF 14(COMP METB)on 021 Albumin [Mass/Vol] 3.9 g/dL Normal 3.5-5.[address] [facility] Comment on above: Performed By: #### L IPID, CMP, T7, TSH #### [facility] [address] [address] [address] Franky Olguin Albumin/Globulin [Mass ratio] 1.0 {ratio} Normal [facility] Comment on above: Performed By: #### L IPID, CMP, T7, TSH #### [facility] [address] [place] [address] Dr. Franky Olguin ALP [Catalytic activity/Vol] 68 U/L Normal 38-126 [facility] Comment on above: Performed By: #### L IPID, CMP, T7, TSH #### [facility] [address] [place] [address] Dr. Franky Olguin ALT [Catalytic activity/Vol] 89 U/L Critically high 21-72 [facility] Comment on above: Performed By: #### L IPID, CMP, T7, TSH #### [facility] [address] [address] [address] Franky Olguin Anion gap [Moles/Vol] 13.1 mmol/L Normal [facility] Comment on above: Performed By: #### L IPID, CMP, T7, TSH #### [facility] [address] [place] [address] Dr. Franky Olguin AST [Catalytic activity/Vol] 56 U/L Normal 17-59 [facility] Comment on above: Performed By: #### L IPID, CMP, T7, TSH #### [facility] [address] [place] [address] Dr. Franky Olguin Bilirubin [Mass/Vol] 0.7 mg/dL Normal 0.2-1.3 [facility] Comment on above: Performed By: #### L IPID, CMP, T7, TSH #### [facility] [address] [address] [address] Franky Olguin Calcium [Mass/Vol] 9.5 mg/dL Normal 8.4-10.[address] [facility] Comment on above: Performed By: #### L IPID, CMP, T7, TSH #### [facility] [address] [address] [address] Franky Olguin Chloride [Moles/Vol] 104 mmol/L Normal 98-107 [facility] Comment on above: Performed By: #### L IPID, CMP, T7, TSH #### [facility] [address] [place] [address] Dr. Franky Olguin CO2 [Moles/Vol] 25.1 mmol/L Normal 22.0-30.0 [facility] Comment on above: Performed By: #### L IPID, CMP, T7, TSH #### [facility] [address] [place] [address] Dr. Franky Olguin Creatinine [Mass/Vol] 1.19 mg/dL Normal 0.66-1.25 [facility] Comment on above: Performed By: #### L IPID, CMP, T7, TSH #### [facility] [address] [place] [address] Dr. Franky Olguin EGFR-AF BRAZILIAN >60 Normal >=60 [facility] Comment on above: Performed By: #### L IPID, CMP, T7, TSH #### [facility] [address] [place] [address] Dr. Franky Olguin EGFR-NON AF BRAZILIAN >60 Normal >=60 [facility] Comment on above: Performed By: #### L IPID, CMP, T7, TSH #### [facility] [address] [place] [address] Dr. Franky Olguin Globulin (S) [Mass/Vol] 4.0 g/dL Normal [facility] Comment on above: Performed By: #### L IPID, CMP, T7, TSH #### [facility] [address] [place] [address] Dr. Franky Olguin Glucose [Mass/Vol] 133 mg/dL Critically high 74-106 [facility] Comment on above: Performed By: #### L IPID, CMP, T7, TSH #### [facility] [address] [place] [address] Dr. Franky Olguin Potassium [Moles/Vol] 4.2 mmol/L Normal 3.4-5.0 [facility] Comment on above: Performed By: #### L IPID, CMP, T7, TSH #### [facility] [address] [address] [address] Franky Olguin Protein [Mass/Vol] 7.9 g/dL Normal 6.1-8.2 [facility] Comment on above: Performed By: #### L IPID, CMP, T7, TSH #### [facility] [address] [place] [address] Dr. Franky Olguin Sodium [Moles/Vol] 138 mmol/L Normal 137-145 [facility] Comment on above: Performed By: #### L IPID, CMP, T7, TSH #### [facility] [address] [place] [address] Dr. Franky Olguin Urea nitrogen [Mass/Vol] 19.0 mg/dL Normal 9.0-20.0 [facility] Comment on above: Performed By: #### L IPID, CMP, T7, TSH #### [facility] [address] [place] [address] Dr. Franky Olguin Urea nitrogen/Creatinine [Mass ratio] 16.0 mg/mg Normal [facility] Comment on above: Performed By: #### L IPID, CMP, T7, TSH #### [facility] [address] [place] [address] Dr. Franky Olguin TSHon 03-25-2021 TSH 4.571 uIU/mL Normal 0.470-4.680 [facility] Comment on above: Performed By: #### L IPID, CMP, T7, TSH #### [facility] [address] [place] [address] Dr. Franky Olguin TSH RANGE SEE BELOW Normal [facility] Comment on above: Result Comment: <0.3 4 UIU/ml HYPERTHYROID 0.34-5.60 UIU/ml EUTHYROID >5.60 UIU/ml HYPOTHYROID Performed By: #### L IPID, CMP, T7, TSH #### [facility] [address] [address] [address] Franky Olguin US venous duplex LE LTon US venous duplex LE LT [facility] [place] [address] [place] [address] Ultrasound Report Signed Patient: Holden Askew MR#: [id number] 98 : 1965 Acct:[id number] Age/Sex: 56 / M ADM Date: 03/12/21 Loc: [facility] Room: Type: [facility] CLI Attending Dr: Jaime Wooten MD [...] Jaime Wooten MD03/18/2021 3:20 PM [facility] Tech: Kamala Wells Transcribed By: [facility] 03/18/21 1520 Dictated By: Jaime Wooten MD 03/18/21 1518 Signed By: 03/18/21 1520 [facility] Auth for Release of Medical Recordson 02-02-2021 Auth for Release of Medical Records [id number]# 1.00CD:127 [facility] Formson 01-28-2021 Forms [id number] #1.00CD:127 Normal [facility] Form[facility] 01-21-2021 Forms [id number] #1.00CD:127 Normal [facility] Screenson 12-23-2020 Screens [id number] #1.00CD:127 Normal [facility] Screens [id number] #1.00CD:127 Normal [facility] Ambulatory Clinical Summaryo n 12-18-2020 Ambulatory Clinical Summary {[id number]}CD:[id number] Normal [facility] [employer] 12-18-2020 Forms [id number] #1.00CD:127 Normal [facility] General Surgery Office/Clini c Noteon 12-17-2020 [...] by Dr. Jones. He has been using gzns-xsy-yzkuckt hose for several years now and he [...] also tel (more content not included)... Normal [facility] Comment on above: Result Comment: Elec tronically Signed By: ERICA CARRERA, Cecilia Jeffrey\.waqas\Date and Time Signed: 12/17/20 13:46 EDT Patient Correspondenceon Patient Correspondence 104.... [id number] #1.00CD:127 Normal [facility] Retail - Clinical Noteon Retail - Clinical Note [id number] #1.00CD:127 [facility] Vital Signs Date Time Vital Sign Value Performing Clinician Facility 03-12-2021 13:30-0400 Body height 185.42 cm Jaime Wooten [facility] Other 03-12-2021 13:30-0400 Body mass index (BMI) [Ratio] 40.63 kg/m2 Jaime Wooten [facility] Other 03-12-2021 13:30-0400 Body weight 139.71 kg Jaime Wooten Other [facility] Other 03-12-2021 13:30-0400 Diastolic blood pressure 118 mm[Hg] Jaime Wooten Other [facility] Other 03-12-2021 13:30-0400 Systolic blood pressure 161 mm[Hg] Jaime Wooten Other [facility] Other Encounters Encounter Date Encounter Type Care Provider Facility Start: 07-07-2021 End: 07-07-[address] JESÚS BEEBE Facility:[facility] Start: 05-13-2021 End: 05-13-[address] JESÚS BEEBE Facility:[facility] Start: 04-03-2021 Encounter for genera l adult medical examination without abnormal findings DR JESÚS BEEBE [facility] Start: 03-25-2021 End: 03-26-[address] JESÚS BEEBE Facility:[facility] Start: 03-25-2021 End: 03-26-2021 Encounter for general adult medical examination without abnormal findings DR JESÚS BEEBE Facility:[facility] Start: 03-12-2021 Office outpatient vi sit 15 minutes Jaime BERNSTEIN Vascular Surgery Procedures Date Procedure Procedure Detail Performing Clinician Start: 03-25-[address] GRETCHEN BEEBE Comment on above: Performed By: #### [facility] #### [facility] [address] [place] [address] Dr. Franky Olguin Payers Date Payer Category Payer Unknown [id number] [id number] [id number] 1965 Unknown [id number] [id number] [id number] 1965 Unknown [id number] [id number] [id number] 1959 Unknown [id number] Social History Date Type Detail Facility Sex Assigned At [facility] Other Evaluation note 03-12-2021 Note Date & [...] lower extremity with pain (ICD-10 - I83.812) [facility] Other History general Narrative - Reported Note Date & Type Note Facility History general Narrative - Reported Type Medical History Varicose veins Surgical History vein procedure (Dr. Jones) [facility] Other Summary Purpose Family History No Family [...] content) DATE CREATED AUTHOR 02/03/2021 [facility] Shepherd [facility] DATE CREATED AUTHOR AUTHOR'S ORGANIZ ATION 07/07/2021 [facility] DATE CREATED AUTHOR AUTHOR'S ORGANIZ ATION 07/10/2021 [facility] REASON FOR VISIT (unrecogniz ed [...] BE BASED ON THE PRIMARY CLINICAL RECORDS. [employer] provides no warranty or guarantee of the accuracy or completeness of information in this document.
== END 2024-04-04 06:41 | disposition home or self-care (01) ==
LOC: MRI 06:40
PROVIDERS: PCP Family Medicine; Visit Provider Family Medicine
DX: M17.12 Unilateral primary osteoarthritis, left knee (principal); S83.242A Other tear of medial meniscus, current injury, left knee, initial encounter; S83.282A Other tear of lateral meniscus, current injury, left knee, initial encounter
CPT/HCPCS: 73721

== ENCOUNTER 2024-07-23 13:10 | Outpatient (OUT) | payer BC, SELFPAY ==
--- NOTE | 2024-07-23 | XR_ITS ---
The [address] [address] Patient Name: HOLDEN CHANEY MRN: [id number] date: 1965 Sex: M Assigned Patient Location: Current Patient Location: Accession/Order Number: [id number] Exam Date: 07/23/2024 13:13 Report Date: 07/24/2024 10:00 At the request of: ABRAM GENAO Procedure: XR knee LT 4V PROCEDURE: XR knee LT 4V COMPARISON: None. HISTORY: LEFT KNEE PAIN FINDINGS: BONES:No acute fracture or dislocation. Moderate tricompartmental osteoarthropathy with joint space narrowing and marginal osteophyte formation SOFT TISSUES:Negative. No visible soft tissue swelling. EFFUSION:Trace joint effusion OTHER: Negative. XR/XR knee LT 4V IMPRESSION: Moderate osteoarthritis. Electronically authenticated by: LUZ MARINA MCKEON Date: 07/24/2024 10:00
--- OUTSIDE RECORDS SUMMARY | 2024-07-23 13:25 | XMS_ITS | CCD ---
Author Organization [facility] Care Team Providers Care Fire Equipment Inspector Name Role Phone DR JESÚS BEEBE Primary [...] spec) Detected Critically abnormal NOT DETECTED [facility] Comment on above: Result Comment: This test is not yet approved or cleared by the [place] FDA. When there are no FDA-approved or cleared tests available, and other criteria are met, FDA can make tests available under an emergency access mechanism called an Emergency Use Authorization (EUA). The EUA for this test is supported by the [employer] of Health and Human Service's (HHS's) declaration [...] used). Performed By: #### C VDTBH #### [facility] [address] [address] [address] Franky Olguin Covid-19 PCR ([facility])on SARS-CoV-2 (COVID-19) RNA ABEL+probe Ql (Unsp spec) Not detected Normal NOT DETECTED [facility] Comment on above: Result Comment: This test is not yet approved or cleared by the [place] FDA. When there are no FDA-approved or cleared tests available, and other criteria are met, FDA can make tests available under an emergency access mechanism called an Emergency Use Authorization (EUA). The EUA for this test is supported by the [employer] of Health and Human Service's (HHS's) declaration [...] SARS-CoV-2. Performed By: #### C VDTBH #### [facility] [address] [place] [address] Dr. Franky Olgiun CBC AUTO DIFFon 03-25-2021 BASO # 0.1 103/ul Normal 0.0-0.1 [facility] Comment on above: Performed By: #### C BC #### [facility] [address] [place] [address] Dr. Franky Olguin Basophils/100 WBC (Bld) 0.8 % Normal 0.2-2.0 [facility] Comment on above: Performed By: #### C BC #### [facility] [address] [place] [address] Dr. Franky Olguin EO # 0.2 103/ul Normal 0.0-0.7 [facility] Comment on above: Performed By: #### C BC #### [facility] [address] [place] [address] Dr. Franky Olguin Eosinophils/100 WBC (Bld) 2.3 % Normal 0.9-7.0 [facility] Comment on above: Performed By: #### C BC #### [facility] [address] [place] [address] Dr. Franky Olguin Erythrocyte distribution width (RBC) [Ratio] 13.0 % Normal 11.0-15.0 [facility] Comment on above: Performed By: #### C BC #### [facility] [address] [place] [address] Dr. Franky Olguin Hematocrit (Bld) [Volume fraction] 44.9 % Normal 42.0-54.0 [facility] Comment on above: Performed By: #### C BC #### [facility] [address] [place] [address] Dr. Franky Olguin Hemoglobin (Bld) [Mass/Vol] 14.5 g/dL Normal 14.0-18.0 [facility] Comment on above: Performed By: #### C BC #### [facility] [address] [place] [address] Dr. Franky Olguin IG # 0.03 10e3/ul Normal 0.00-0.03 [facility] Comment on above: Performed By: #### C BC #### [facility] [address] [place] [address] Dr. Franky Olguin IG % 0.4 % Normal 0.0-0.5 [facility] Comment on above: Performed By: #### C BC #### [facility] [address] [place] [address] Dr. Franky Olguin LYMPH # 2.3 103/ul Normal 1.2-3.8 [facility] Comment on above: Performed By: #### C BC #### [facility] [address] [place] [address] Dr. Franky Olguin Lymphocytes/100 WBC (Bld) 30.3 % Normal 20.5-60.0 [facility] Comment on above: Performed By: #### C BC #### [facility] [address] [place] [address] Dr. Franky Olguin MANUAL DIFF REQ NO Normal [facility] Comment on above: Performed By: #### C BC #### [facility] [address] [place] [address] Dr. Franky Olguin MCH (RBC) [Entitic mass] 30.5 pg Normal 25.9-34.0 [facility] Comment on above: Performed By: #### C BC #### [facility] [address] [place] [address] Dr. Franky Olguin MCHC (RBC) [Mass/Vol] 32.3 g/dL Normal 29.9-35.2 [facility] Comment on above: Performed By: #### C BC #### [facility] [address] [place] [address] Dr. Franky Olguin MCV (RBC) [Entitic vol] 94.5 fL Critically high 80.0-94.0 [facility] Comment on above: Performed By: #### C BC #### [facility] [address] [place] [address] Dr. Franky Olguin MONO # 0.6 103/ul Normal 0.3-0.8 [facility] Comment on above: Performed By: #### C BC #### [facility] [address] [place] [address] Dr. Franky Olguin Monocytes/100 WBC (Bld) 8.2 % Normal 1.7-12.0 [facility] Comment on above: Performed By: #### C BC #### [facility] [address] [place] [address] Dr. Franky Olguin NEUT # 4.5 103/ul Normal 1.4-6.5 [facility] Comment on above: Performed By: #### C BC #### [facility] [address] [place] [address] Dr. Franky Olguin Neutrophils/100 WBC (Bld) 58.0 % Normal 43.0-75.0 [facility] Comment on above: Performed By: #### C BC #### [facility] [address] [place] [address] Dr. Franky Olguin Platelet mean volume (Bld) [Entitic vol] 9.9 fL Normal 9.5-13.5 [facility] Comment on above: Performed By: #### C BC #### [facility] [address] [place] [address] Dr. Franky Olguin PLT 199 103/ul Normal 150-450 [facility] Comment on above: Performed By: #### C BC #### [facility] [address] [place] [address] Dr. Franky Olguin RBC 4.75 106/ul Normal 4.70-6.10 [facility] Comment on above: Performed By: #### C BC #### [facility] [address] [place] [address] Dr. Franky Olguin WBC 7.7 103/ul Normal 4.0-11.0 [facility] Comment on above: Performed By: #### C BC #### [facility] [address] [place] [address] Dr. Franky Olguin FREE THYROXINE INDEX T7on FTI 1.92 Normal [facility] Comment on above: Performed By: #### L IPID, CMP, T7, TSH #### [facility] [address] [place] [address] Dr. Franky Olguin T3U 30.0 % Normal 23.5-40.5 [facility] Comment on above: Performed By: #### L IPID, CMP, T7, TSH #### [facility] [address] [address] [address] Franky Olguin T4 [Mass/Vol] 6.40 ug/dL Normal 5.53-11.00 [facility] Comment on above: Performed By: #### L IPID, CMP, T7, TSH #### [facility] [address] [address] [address] Franky Olguin GLYCOHEMOGLOBIN A1Con 2020 ADA RECOMMENDATION ADA THERAPEUTIC TARGET 6.0 - 7.0 ACTION SUGGESTED > 7.0 Normal [facility] Comment on above: Performed By: #### A 1C #### [facility] [address] [place] [address] Dr. Franky Olguin Glucose [Mass/Vol] 151 mg/dL Normal [facility] Comment on above: Performed By: #### A 1C #### [facility] [address] [address] [address] Franky Olguin HbA1c (Bld) [Mass fraction] 6.9 % Critically high <=6.0 [facility] Comment on above: Performed By: #### A 1C #### [facility] [address] [place] [address] Dr. Franky Olguin LIPID PROFILEon 03-25-2021 CHOL-HDL RATIO NORM SEE BELOW Normal [facility] Comment on above: Result Comment: 3.3 - 4.4 LOW RISK 4.4 - 7.1 AVERAGE RISK 7.1 - 11.0 MODERATE RISK >11.0 HIGH RISK Performed By: #### L IPID, CMP, T7, TSH #### [facility] [address] [address] [address] Franky Olguin Cholesterol [Mass/Vol] 167 mg/dL Normal <=200 [facility] Comment on above: Performed By: #### L IPID, CMP, T7, TSH #### [facility] [address] [address] [address] Franky Olguin Cholesterol in HDL [Mass/Vol] 37 mg/dL Normal [facility] Comment on above: Performed By: #### L IPID, CMP, T7, TSH #### [facility] [address] [address] [address] Franky Olguin Cholesterol in LDL [Mass/Vol] 93.4 mg/dL Normal [facility] Comment on above: Performed By: #### L IPID, CMP, T7, TSH #### [facility] [address] [address] [address] Franky Olguin Cholesterol.total/Cho lesterol in HDL [Mass ratio] 4.5 {ratio} Normal [facility] Comment on above: Performed By: #### L IPID, CMP, T7, TSH #### [facility] [address] [address] [address] Franky Olguin HDL NORMAL > or = 60 mg/dl - LOW CARDIOVASCULAR RISK <40 mg/dl - HIGH CARDIOVASCULAR RISK Normal [facility] Comment on above: Performed By: #### L IPID, CMP, T7, TSH #### [facility] [address] [address] [address] Franky Olguin LDL CALC NORMAL SEE BELOW Normal [facility] Comment on above: Result Comment: <100 mg/dl OPTIMAL 100 - 129 mg/dl NEAR OR ABOVE OPTIMAL 130 - 159 mg/dl BORDERLINE HIGH 160 - 189 mg/dl HIGH >190 mg/dl VERY HIGH Performed By: #### L IPID, CMP, T7, TSH #### [facility] [address] [address] [address] Franky Olguin Triglyceride [Mass/Vol] 183 mg/dL Critically high <=150 [facility] Comment on above: Performed By: #### L IPID, CMP, T7, TSH #### [facility] [address] [address] [address] Franky Olguin VLDL CALC 36.6 mg/dL Normal [facility] Comment on above: Performed By: #### L IPID, CMP, T7, TSH #### [facility] [address] [address] [address] Franky Olguin PROF 14(COMP METB)on 021 Albumin [Mass/Vol] 3.9 g/dL Normal 3.5-5.0 [facility] Comment on above: Performed By: #### L IPID, CMP, T7, TSH #### [facility] [address] [address] [address] Franky Olguin Albumin/Globulin [Mass ratio] 1.0 {ratio} Normal [facility] Comment on above: Performed By: #### L IPID, CMP, T7, TSH #### [facility] [address] [place] [address] Dr. Franky Olguin ALP [Catalytic activity/Vol] 68 U/L Normal 38-126 [facility] Comment on above: Performed By: #### L IPID, CMP, T7, TSH #### [facility] [address] [place] [address] Dr. Franky Olguin ALT [Catalytic activity/Vol] 89 U/L Critically high 21-72 [facility] Comment on above: Performed By: #### L IPID, CMP, T7, TSH #### [facility] [address] [address] [address] Franky Olguin Anion gap [Moles/Vol] 13.1 mmol/L Normal [facility] Comment on above: Performed By: #### L IPID, CMP, T7, TSH #### [facility] [address] [place] [address] Dr. Franky Olguin AST [Catalytic activity/Vol] 56 U/L Normal 17-59 [facility] Comment on above: Performed By: #### L IPID, CMP, T7, TSH #### [facility] [address] [place] [address] Dr. Franky Olguin Bilirubin [Mass/Vol] 0.7 mg/dL Normal 0.2-1.3 [facility] Comment on above: Performed By: #### L IPID, CMP, T7, TSH #### [facility] [address] [address] [address] Franky Olguin Calcium [Mass/Vol] 9.5 mg/dL Normal 8.4-10.2 [facility] Comment on above: Performed By: #### L IPID, CMP, T7, TSH #### [facility] [address] [address] [address] Franky Olguin Chloride [Moles/Vol] 104 mmol/L Normal 98-107 [facility] Comment on above: Performed By: #### L IPID, CMP, T7, TSH #### [facility] [address] [place] [address] Dr. Franky Olguin CO2 [Moles/Vol] 25.1 mmol/L Normal 22.0-30.0 [facility] Comment on above: Performed By: #### L IPID, CMP, T7, TSH #### [facility] [address] [place] [address] Dr. Franky Olguin Creatinine [Mass/Vol] 1.19 mg/dL Normal 0.66-1.25 [facility] Comment on above: Performed By: #### L IPID, CMP, T7, TSH #### [facility] [address] [place] [address] Dr. Franky Olguin EGFR-AF ITALIAN >60 Normal >=60 [facility] Comment on above: Performed By: #### L IPID, CMP, T7, TSH #### [facility] [address] [place] [address] Dr. Franky Olguin EGFR-NON AF ITALIAN >60 Normal >=60 [facility] Comment on above: Performed By: #### L IPID, CMP, T7, TSH #### [facility] [address] [place] [address] Dr. Franky Olguin Globulin (S) [Mass/Vol] 4.0 g/dL Normal [facility] Comment on above: Performed By: #### L IPID, CMP, T7, TSH #### [facility] [address] [place] [address] Dr. Franky Olguin Glucose [Mass/Vol] 133 mg/dL Critically high 74-106 T [facility] Comment on above: Performed By: #### L IPID, CMP, T7, TSH #### [facility] [address] [place] [address] Dr. Franky Olguin Potassium [Moles/Vol] 4.2 mmol/L Normal 3.4-5.0 [facility] Comment on above: Performed By: #### L IPID, CMP, T7, TSH #### [facility] [address] [address] [address] Franky Olguin Protein [Mass/Vol] 7.9 g/dL Normal 6.1-8.2 [facility] Comment on above: Performed By: #### L IPID, CMP, T7, TSH #### [facility] [address] [place] [address] Dr. Franky Olguin Sodium [Moles/Vol] 138 mmol/L Normal 137-145 [facility] Comment on above: Performed By: #### L IPID, CMP, T7, TSH #### [facility] [address] [place] [address] Dr. Franky Olguin Urea nitrogen [Mass/Vol] 19.0 mg/dL Normal 9.0-20.0 [facility] Comment on above: Performed By: #### L IPID, CMP, T7, TSH #### [facility] [address] [place] [address] Dr. Franky Olguin Urea nitrogen/Creatinine [Mass ratio] 16.0 mg/mg Normal [facility] Comment on above: Performed By: #### L IPID, CMP, T7, TSH #### [facility] [address] [place] [address] Dr. Franky Olguin TSHon 03-25-2021 TSH 4.571 uIU/mL Normal 0.470-4.680 [facility] Comment on above: Performed By: #### L IPID, CMP, T7, TSH #### [facility] [address] [place] [address] Dr. Franky Olguin TSH RANGE SEE BELOW Normal [facility] Comment on above: Result Comment: <0.3 4 UIU/ml HYPERTHYROID 0.34-5.60 UIU/ml EUTHYROID >5.60 UIU/ml HYPOTHYROID Performed By: #### L IPID, CMP, T7, TSH #### [facility] [address] [address] [address] Franky Olguin US venous duplex LE LTon US venous duplex LE LT [facility] [place] [address] [place] [address] Ultrasound Report Signed Patient: Holden Askew MR#: [id number] : 1965 Acct:[id number] Age/Sex: 56 / M ADM Date: 03/12/21 Loc: [facility] Room: Type: [facility] CLI Attending Dr: Jaime Wooten [...] Jaime Wooten MD03/18/2021 3:20 PM [facility] Tech: Kamala Wells Transcribed By: [facility] 03/18/21 1520 Dictated By: Jaime Wooten MD 03/18/21 1518 Signed By: 03/18/21 1520 [facility] Auth for Release of Medical Recordson 02-02-2021 Auth for Release of Medical Records [id number]# 1.00CD:127 [facility] 01-28-2021 Forms [id number] #1.00CD:127 Normal [facility] 01-21-2021 Forms [id number] #1.00CD:127 Normal [facility] 12-23-2020 Screens [id number] #1.00CD:127 Normal [facility] Screens [id number] #1.00CD:127 Normal [facility] Ambulatory Clinical Summaryo n 12-18-2020 Ambulatory Clinical Summary {[id number]}CD:[id number] Normal [facility] 12-18-2020 Forms [id number] #1.00CD:127 Normal [facility] General Surgery Office/Clini c Noteon [...] by Dr. Jones. He has been using wkzp-eqa-puynwxk hose for several years now and he [...] also tel (more content not included)... Normal [facility] Comment on above: Result Comment: Elec tronically Signed By: ERICA CARRERA, Cecilia Jeffrey\.waqas\Date and Time Signed: 12/17/20 13:46 EDT Patient Correspondenceon Patient Correspondence [id number].... [id number] #1.00CD:127 Normal [facility] Retail - Clinical Noteon Retail - Clinical Note [id number] #1.00CD:127 [facility] Vital Signs Date Time Vital Sign Value Performing Clinician Facility 03-12-2021 13:30-0400 Body height 185.42 cm Jaime Wooten Other [facility] Other 03-12-2021 13:30-0400 Body mass index (BMI) [Ratio] 40.63 kg/m2 Jaime Wooten Other [facility] Other 03-12-2021 13:30-0400 Body weight 139.71 kg Jaime Wooten Other [facility] Other 03-12-2021 13:30-0400 Diastolic blood pressure 118 mm[Hg] Jaime Wooten Other [facility] Other 03-12-2021 13:30-0400 Systolic blood pressure 161 mm[Hg] Jaime Wooten Other [facility] Other Encounters Encounter Date Encounter Type Care Provider Facility Start: 07-07-2021 End: 07-07-[address] JESÚS BEEBE Facility:[facility] Start: 05-13-2021 End: 05-13-[address] JESÚS BEEBE Facility:[facility] Start: 04-03-2021 Encounter for genera l adult medical examination without abnormal findings DR JESÚS BEEBE [facility] Start: 03-25-2021 End: 03-26-[address] JESÚS BEEBE Facility:[facility] Start: 03-25-2021 End: 03-26-2021 Encounter for general adult medical examination without abnormal findings DR JESÚS BEEBE Facility:[facility] Start: 03-12-2021 Office outpatient vi sit 15 minutes Jaime BERNSTEIN Vascular Surgery Procedures Date Procedure Procedure Detail Performing Clinician Start: 03-25-[address] GRETCHEN BEEBE Comment on above: Performed By: #### P [facility] #### [facility] [address] [place] [address] Dr. Franky Olguin Payers Date Payer Category Payer Unknown [id number] [id number] [id number] 1965 Unknown [id number] [id number] [id number] 1965 Unknown [id number] [id number] 1959 Unknown [id number] Social History Date Type Detail Facility Sex Assigned At [facility] Other Evaluation note 03-12-2021 Note Date & [...] lower extremity with pain (ICD-10 - I83.812) [facility] Other History general Narrative - Reported Note Date & Type Note Facility History general Narrative - Reported Type Medical History Varicose veins Surgical History vein procedure (Dr. Jones) [facility] Other Summary Purpose Family History No Family [...] content) DATE CREATED AUTHOR 02/03/[address] [facility] DATE CREATED AUTHOR AUTHOR'S ORGANIZ ATION 07/07/2021 [facility] DATE CREATED AUTHOR AUTHOR'S ORGANIZ ATION 07/10/2021 [facility] REASON FOR VISIT (unrecogniz ed [...] BE BASED ON THE PRIMARY CLINICAL RECORDS. [email or web address] provides no warranty or guarantee of the accuracy or completeness of information in this document.
== END 2024-07-23 13:11 | disposition home or self-care (01) ==
LOC: EC 13:11
PROVIDERS: PCP Family Medicine; Visit Provider Student in an Organized Health Care Education/Training Program
DX: M17.12 Unilateral primary osteoarthritis, left knee (principal)
CPT/HCPCS: 73564

== ENCOUNTER 2025-02-01 07:12 | Outpatient (OUT) | payer BC, SELFPAY ==
--- OUTSIDE RECORDS SUMMARY | 2024-10-22 09:00 | XMS_ITS ---
Author Organization [facility] Address [address] [place] [address] Care Team Providers Care Nurse Rn Bsn Name Role Phone Jared Augustin Primary Care Provider Sahil Angulo Unavailable [phone] José Luis Vargas Unavailable [phone] REASON FOR VISIT Left knee OA Encounters Encounter Location Date Provider Diagnosis [facility] [address] [place] [address] [place] [address] 10/22/2024 José Luis Vargas Plan Of Treatment No Information Progress Notes * HOLDEN CHANEY MDOB: 5 (60 yo M)Acc No.[id number]:10/22/2024 Patient: Sotero HAENY HOLDEN Jones Provider: Raquel Vargas DO :1965 A ge:59 Y S ex:Male Date:10/22/2024 Address:[address] [place], [place] [id number] Pcp:Jared Augustin Subjective: * Chief Complaints: * 1 . Left knee OA. * Medical History: Objective: * Vitals: Assessment: Plan: * Treatment: Forms: * Images: * Electronic signature of Eileen Vargas DO on 02/01/2025 at 07:15 AM EDT Sign off status: Pending * Provider: Raquel Vargas DO Date: 0 10/22/2024 Generated for Printi ng/Faxing/eTransmitting on: 0 02/01/2025 07:15 AM EDT
--- OUTSIDE RECORDS SUMMARY | 2025-01-07 10:45 | XMS_ITS ---
Author Organization [facility] [place] Address [address] [place] [address] Care Team Providers Care Box Blank Machine Operator Helper Name Role Phone Aydin Augustin Primary Care Provider [phone] Allergies No Known Allergies REASON FOR VISIT meds, follow up on starting januvia bs last night before going to work was 124, patient works midnights Medications Medication SIG (Take, Route, Frequency, Duration) Notes Start Date End Date Status Aspirin 81 81 MG 1 tablet Orally Once a day Active Lancets - as directed Active Januvia 100 MG 1 tablet Orally Once a day for 30 days 12/26/2024 Active metFORMIN HCl 500 MG TAKE 1 TABLET BY MO UTH TWICE DAILY WITH A MEAL for 30 Active Lisinopril 20 MG Take 1 tablet by jose th once daily for 90 Active Blood Glucose Test Strip Active Blood Glucose Monitor System w/Device as directed Active Glimepiride 4 MG 1 tablet with breakf ast or the first main meal of the day Orally Once a day for 30 days 01/30/2024 Active Diclofenac Sodium 75 MG 1 tablet as need ed Orally Twice a day for 30 days 03/22/2024 Active Social History Tobacco Use: Social History Observation Description Date Details (start date - stop date) Former Smoker 06/13/1984 - 06/13/1992 Tobacco Use/Smoking Question Answer Notes Patient is a former smoker When did you start smoking? 06/13/1984 When did you stop smoking? 06/13/1992 How long has it been since you last smoked? > 10 years AUDIT-C (Standard) Question Answer Notes Did you have a drink containing alcohol in the p ast year? No Points 0 Interpretation Negative Vital Signs Weight 306 lbs 01/07/2025 Height 74 in 01/07/2025 Blood pressure systolic 128 mm Hg 01/08/20 25 Blood pressure diastolic 78 mm Hg 025 BMI 39.28 kg/m2 01/07/2025 Encounters Encounter Location Date Provider Diagnosis [facility] [address] [facility] [address] 01/07/2025 Aydin Augustin Diabetes mellitus ty pe 2, controlled, without complications E11.9 Assessments Encounter Date Diagnosis (ICD Code) Assessment Notes Treatment Notes Treatment Clinical Notes Section Notes 01/07/2025 Diabetes mellitus type 2, controlled, without complications (ICD-10 - E11.9) 01/07/2025 Other Yearly Flu Shot Yearly Eye Exam Check Feet Daily. Plan Of Treatment Treatment Notes Assessment Notes Other Yearly Flu Shot Year ly Eye Exam Check Feet Daily. Progress Notes * Chet ASKEW MDOB: 5 (59 yo M)Acc No.[id number]:01/07/2025 Progress Note Patient: Chet MORALES M Provider: Raquel Augustin ([facility])MD :1965 A ge:59 Y S ex:Male Date:01/07/2025 Address:[address] [place], [place] [id number] Check In:02:13 PM ESTCheck O ut:02:33 PM EST Subjective: * Chief Complaints: * M eds, follow up on starting januvia bs last night before going to work was 124, patient works midnights * HPI: D iabetes mellitus: Diabetes: _ ___. Good Control: a dmits. Routinely Checking Blood Sugar: a dmits. Last HbA1c: D ate: . Last Eye Exam: D ate: . Vision Changes: d enies. Neuropathy: d enies. Foot Ulcers: d enies. Nephropathy: d enies. Polyuria: d enies. Polydipsia: d enies. Compliant with Statin: d enies. Compliant with JOSSELYN/ARB: d enies. * ROS: G eneral/Constitutional: Fatigue or Weakness d enies. C ardiovascular: Edema d enies. C hest pain d enies. P alpitations d enies. R espiratory: Cough d enies. S hortness of breath d enies. ? G astrointestinal: Blood in stool d enies. C onstipation d enies. D iarrhea d enies. N ausea d enies. V omiting d enies. N eurologic: Dizziness d enies. S yncope d enies. M amy loss d enies. * Active Problem List E78.1 Hypertriglyceridemia Modified On:01/30/2024 Status:confirmed I10 Essential hypertensi on Modified On:10/08/2022 Status:confirmed Z00.00 Well adult Modified On:04/13/2023 Status:confirmed M79.606 Leg pain Modified On:10/08/2022 Status:confirmed N52.9 Impotence Modified On:10/08/2022 Status:confirmed E11.9 Diabetes mellitus ty pe 2, controlled, without complications Modified On:10/08/2022 Status:confirmed I80.209 Deep vein thrombophl ebitis of lower leg, unspecified laterality Modified On:10/08/2022 Status:confirmed L03.019 Paronychia Modified On:12/05/2023 Status:confirmed M17.12 Osteoarthritis of le ft knee Modified On:2024 Status:confirmed R73.9 Hyperglycemia Modified On:01/30/2024 Status:confirmed 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 M other: . B rother(s): alive. S ister(s): alive. S on(s): alive. D luda(s): alive. 2 brother(s) , 2 sister(s) - healthy. 1 son(s) , 1 daughter(s) . . * Social History: T obacco Use: T obacco Use/Smoking P atient is a f ormer smoker W hen did you start smoking? 0 06/13/1984 W hen did you stop smoking? 0 06/13/1992 H ow long has it been since you last smoked??> 10 years D rug/Alcohol: A KARYN-C (Standard) D id you have a drink containing alcohol in the past year? N o P oints 0 I nterpretation N egative * Medications: T akingAspirin 81(Aspirin) 81 MG Tablet Delayed Release 1 tablet Orally Once a day Blood Glucose Monitor System w/Device Kit as directed Blood Glucose Test Strip Diclofenac Sodium 75 MG Tablet Delayed Release 1 tablet as needed Orally Twice a day Glimepiride 4 MG Tablet 1 tablet with breakfast or the first main meal of the day Orally Once a day Januvia(SITagliptin Phosphate) 100 MG Tablet 1 tablet Orally Once a day Lancets - Miscellaneous as directed Lisinopril 20 MG Tablet Take 1 tablet by mouth once daily metFORMIN HCl 500 MG Tablet TAKE 1 TABLET BY MOUTH TWICE DAILY WITH A MEAL Medication List reviewed and reconciled with the patientTaking Aspirin 81(Aspirin) 81 MG Tablet Delayed Release 1 tablet Orally Once a day Taking Blood Glucose Monitor System w/Device Kit as directed Taking Blood Glucose Test Strip Taking Diclofenac Sodium 75 MG Tablet Delayed Release 1 tablet as needed Orally Twice a day Taking Glimepiride 4 MG Tablet 1 tablet with breakfast or the first main meal of the day Orally Once a day Taking Januvia(SITagliptin Phosphate) 100 MG Tablet 1 tablet Orally Once a day Taking Lancets - Miscellaneous as directed Taking Lisinopril 20 MG Tablet Take 1 tablet by mouth once daily Taking metFORMIN HCl 500 MG Tablet TAKE 1 TABLET BY MOUTH TWICE DAILY WITH A MEAL Medication List reviewed and reconciled with the patient * Allergies: N .K.D.A.no[Allergies Verified] Objective: * Vitals: W t:306lbs, Ht: 74 in, BP:128/78mm Hg, BMI:39.28Index, Ht-cm: 187.96 cm, Wt-k.8 kg. * Examination: G eneral Examination: GENERAL APPEARANCE: well developed, well nourished, in no acute distress. LUNGS: clear to auscultation bilaterally. CARDIO: S1, S2 normal, no murmurs, rubs, gallops. ABDOMEN: soft, nontender , nondistended. GENITOURINARY: bladder nondistended, urethra normal. MUSCULOSKELETAL: full range of motion. VASCULAR: pulses normal, no edema, no carotid bruits.? SKIN: no rashes, warm and dry. NEUROLOGIC: alert, oriented to time, place, & person.? PSYCH: mood/affect full range. FOOT EXAM: D ate / S ensory testing performed: s ensations normal S ensory and motor testing performed: s ensations normal P edal pulse taking performed: 2 + V isual exam of foot performed: Y es Assessment: * Assessment: 1. D iabetes mellitus type 2, controlled, without complications - E11.9 (Primary) ? Plan: * Treatment: * Procedure Codes: * Preventive Medicine: Screenings/Counseling: B NC ACTION PLAN Above Normal BMI Follow-up D ietary management education, guidance, and counseling * * Sign off status: Completed Visit Status: C HK (Check Out) true * Provider: Raquel Augustin ([facility])MD Date: 0 01/07/2025 Generated for Printi ng/Fakeving/eTransmitting on: 0 02/01/2025 07:14 AM EDT History and Physical Notes * HPI (History of Present Illness) Category Sub-Category Detail Notes Category Not es Diabetes mellitus Diabetes: ____ Good Control: admits Routinely Checking Blood Sugar: admits Last HbA1c: Date: Last Eye Exam: Date: Vision Changes: denies Neuropathy: denies Foot Ulcers: denies Nephropathy: denies Polyuria: denies Polydipsia: denies Compliant with Statin: denies Compliant with JOSSELYN/ARB: denies Examination Category Sub-Category Detail Notes Category Not es General Examination GENERAL APPEARANCE: well dev eloped, well nourished, in no acute distress CARDIO: S1, S2 normal, no mu rmurs, rubs, gallops LUNGS: clear to auscultatio n bilaterally ABDOMEN: soft, nontender , no ndistended NEUROLOGIC: alert, oriented to t omar, place, & person SKIN: no rashes, warm and dry MUSCULOSKELETAL: full range of motion PSYCH: mood/affect full ran ge FOOT EXAM: Date: / Sensory testing performed:: sensations n ormal Sensory and motor testing performed:: se nsations normal Pedal pulse taking performed:: 2+ Visual exam of foot performed:: Yes GENITOURINARY: bladder nondistended , urethra normal VASCULAR: pulses normal, no ed moon, no carotid bruits
--- OUTSIDE RECORDS SUMMARY | 2025-01-14 08:48 | XMS_ITS ---
Author Organization [facility] [place] Address [address] [place] [address] Care Team Providers Care Block Tester Name Role Phone Aydin Augustin Primary Care Provider Medications Medication SIG (Take, Route, Fr equency, Duration) Notes Start Date End Date Status Glimepiride 4 MG 1 tablet with breakf ast or the first main meal of the day Orally Once a day for 30 days Active Encounters Encounter Location Date Provider Diagnosis [facility] [address] [place] [address] 01/14/2025 Aydin Augustin Plan Of Treatment Medication Medication Name Sig Start Date Stop Date Notes Glimepiride 4 MG 1 tablet with breakf ast or the first main meal of the day Orally Once a day for 30 days Progress Notes * Chet CHANEY MDOB: 5 (59 yo M)Acc No.[id number]:01/14/2025 Patient: Chet MORALES :1965 A ge:59 Y S ex:Male Address:[address] [place] [id number] * Refills Refill Glimepiride Tablet, 4 MG, Orally, 30, 1 tablet with breakfast or the first main meal of the day, Once a day, 30 days, Refills=11 * true * Date: Generated for Printi ng/Faxing/eTransmitting on: 0 02/01/2025 07:15 AM EDT
--- OUTSIDE RECORDS SUMMARY | 2025-01-14 09:39 | XMS_ITS ---
Author Organization [facility] [place] Address [address] [place] [address] Care Team Providers Care Tacking Machine Operator Name Role Phone Charli Aydin Primary Care Provider Medications Medication SIG (Take, Route, Fr equency, Duration) Notes Start Date End Date Status Glimepiride 4 MG 1 tablet Orally bid for 30 days Active Encounters Encounter Location Date Provider Diagnosis [facility] [address] [place] [address] 01/14/2025 Aydin Justotroy Plan Of Treatment Medication Medication Name Sig Start Date Stop Date Notes Glimepiride 4 MG 1 tablet Orally bid for 30 days Progress Notes * Chet CHANEY MDOB: 5 (59 yo M)Acc No.[id number]:01/14/2025 Patient: Sotero ARNULFOKATALINAChet :1965 A ge:59 Y S ex:Male Address:[address] [place] [id number] * Refills Refill Glimepiride Tablet, 4 MG, Orally, 60 Tablet, 1 tablet, bid, 30 days, Refills=11 * true * Date: Generated for Alaina solitario/Sammy/eTransmitting on: 0 02/01/2025 07:15 AM EDT
--- OUTSIDE RECORDS SUMMARY | 2025-02-01 07:15 | XMS_ITS | CCD ---
Author Organization [facility] Care Team Providers Care Reading Coach Name Role Phone DR JESÚS BEEBE Primary [...] FRANKY ROMERO Consulting Unavailable Jaime Wooten Unavailable [phone] Problems Active Problems Problem Classification Problem [...] spec) Detected Critically abnormal NOT DETECTED [facility] Comment on above: Result Comment: This test is not yet approved or cleared by the [place] FDA. When there are no FDA-approved or cleared tests available, and other criteria are met, FDA can make tests available under an emergency access mechanism called an Emergency Use Authorization (EUA). The EUA for this test is supported by the Spray Painter of Health and Human Service's (HHS's) declaration [...] used). Performed By: #### C VDTBH #### [facility] [address] [address] [address] Franky Olguin [facility]on SARS-CoV-2 (COVID-19) RNA ABEL+probe Ql (Unsp spec) Not detected Normal NOT DETECTED [facility] Comment on above: Result Comment: This test is not yet approved or cleared by the [place] FDA. When there are no FDA-approved or cleared tests available, and other criteria are met, FDA can make tests available under an emergency access mechanism called an Emergency Use Authorization (EUA). The EUA for this test is supported by the Spray Painter of Health and Human Service's (HHS's) declaration [...] SARS-CoV-2. Performed By: #### C VDTBH #### [facility] [address] [place] [address] Dr. Franky Olguin CBC AUTO DIFFon 03-25-2021 BASO # 0.1 103/ul Normal 0.0-0.1 [facility] Comment on above: Performed By: #### C BC #### [facility] [address] [place] [address] Dr. Franky Olguin Basophils/100 WBC (Bld) 0.8 % Normal 0.2-2.0 [facility] Comment on above: Performed By: #### C BC #### [facility] [address] [place] [address] Dr. Franky Olguin EO # 0.2 103/ul Normal 0.0-0.7 [facility] Comment on above: Performed By: #### C BC #### [facility] [address] [place] [address] Dr. Franky Olguin Eosinophils/100 WBC (Bld) 2.3 % Normal 0.9-7.0 [facility] Comment on above: Performed By: #### C BC #### [facility] [address] [place] [address] Dr. Franky Olguin Erythrocyte distribution width (RBC) [Ratio] 13.0 % Normal 11.0-15.0 [facility] Comment on above: Performed By: #### C BC #### [facility] [address] [place] [address] Dr. Franky Olguin Hematocrit (Bld) [Volume fraction] 44.9 % Normal 42.0-54.0 [facility] Comment on above: Performed By: #### C BC #### [facility] [address] [place] [address] Dr. Franky Olguin Hemoglobin (Bld) [Mass/Vol] 14.5 g/dL Normal 14.0-18.0 [facility] Comment on above: Performed By: #### C BC #### [facility] [address] [place] [address] Dr. Franky Olguin IG # 0.03 10e3/ul Normal 0.00-0.03 [facility] Comment on above: Performed By: #### C BC #### [facility] [address] [place] [address] Dr. Franky Olguin IG % 0.4 % Normal 0.0-0.5 [facility] Comment on above: Performed By: #### C BC #### [facility] [address] [place] [address] Dr. Franky Olguin LYMPH # 2.3 103/ul Normal 1.2-3.8 [facility] Comment on above: Performed By: #### C BC #### [facility] [address] [place] [address] Dr. Franky Olguin Lymphocytes/100 WBC (Bld) 30.3 % Normal 20.5-60.0 [facility] Comment on above: Performed By: #### C BC #### [facility] [address] [place] [address] Dr. Franky Olguin MANUAL DIFF REQ NO Normal [facility] Comment on above: Performed By: #### C BC #### [facility] [address] [place] [address] Dr. Franky Olguin MCH (RBC) [Entitic mass] 30.5 pg Normal 25.9-34.0 [facility] Comment on above: Performed By: #### C BC #### [facility] [address] [place] [address] Dr. Franky Olugin MCHC (RBC) [Mass/Vol] 32.3 g/dL Normal 29.9-35.2 [facility] Comment on above: Performed By: #### C BC #### [facility] [address] [place] [address] Dr. Franky Olguin MCV (RBC) [Entitic vol] 94.5 fL Critically high 80.0-94.0 [facility] Comment on above: Performed By: #### C BC #### [facility] [address] [place] [address] Dr. Franky Olguin MONO # 0.6 103/ul Normal 0.3-0.8 [facility] Comment on above: Performed By: #### C BC #### [facility] [address] [place] [address] Dr. Franky Olguin Monocytes/100 WBC (Bld) 8.2 % Normal 1.7-12.0 [facility] Comment on above: Performed By: #### C BC #### [facility] [address] [place] [address] Dr. Franky Olguin NEUT # 4.5 103/ul Normal 1.4-6.5 [facility] Comment on above: Performed By: #### C BC #### [facility] [address] [place] [address] Dr. Franky Olguin Neutrophils/100 WBC (Bld) 58.0 % Normal 43.0-75.0 [facility] Comment on above: Performed By: #### C BC #### [facility] [address] [place] [address] Dr. Franky Olguin Platelet mean volume (Bld) [Entitic vol] 9.9 fL Normal 9.5-13.5 [facility] Comment on above: Performed By: #### C BC #### [facility] [address] [place] [address] Dr. Franky Olguin PLT 199 103/ul Normal 150-450 [facility] Comment on above: Performed By: #### C BC #### [facility] [address] [place] [address] Dr. Franky Olguin RBC 4.75 106/ul Normal 4.70-6.10 [facility] Comment on above: Performed By: #### C BC #### [facility] [address] [place] [address] Dr. Franky Olguin WBC 7.7 103/ul Normal 4.0-11.0 [facility] Comment on above: Performed By: #### C BC #### [facility] [address] [place] [address] Dr. Franky Olguin FREE THYROXINE INDEX T7on FTI 1.92 Normal [facility] Comment on above: Performed By: #### L IPID, CMP, T7, TSH #### [facility] [address] [place] [address] Dr. Franky Olguin T3U 30.0 % Normal 23.5-40.5 [facility] Comment on above: Performed By: #### L IPID, CMP, T7, TSH #### [facility] [address] [address] [address] Franky Olguin T4 [Mass/Vol] 6.40 ug/dL Normal 5.53-11.00 [facility] Comment on above: Performed By: #### L IPID, CMP, T7, TSH #### [facility] [address] [address] [address] Franky Olguin GLYCOHEMOGLOBIN A1Con 2020 ADA RECOMMENDATION ADA THERAPEUTIC TARGET 6.0 - 7.0 ACTION SUGGESTED > 7.0 Normal [facility] Comment on above: Performed By: #### A 1C #### [facility] [address] [place] [address] Dr. Franky Olguin Glucose [Mass/Vol] 151 mg/dL Normal [facility] Comment on above: Performed By: #### A 1C #### [facility] [address] [address] [address] Franky Olguin HbA1c (Bld) [Mass fraction] 6.9 % Critically high <=6.0 [facility] Comment on above: Performed By: #### A 1C #### [facility] [address] [place] [address] Dr. Franky Olguin LIPID PROFILEon 03-25-2021 CHOL-HDL RATIO NORM SEE BELOW Normal [facility] Comment on above: Result Comment: 3.3 - 4.4 LOW RISK 4.4 - 7.1 AVERAGE RISK 7.1 - 11.0 MODERATE RISK >11.0 HIGH RISK Performed By: #### L IPID, CMP, T7, TSH #### [facility] [address] [address] [address] Franky Olguin Cholesterol [Mass/Vol] 167 mg/dL Normal <=200 [facility] Comment on above: Performed By: #### L IPID, CMP, T7, TSH #### [facility] [address] [address] [address] Franky Olguin Cholesterol in HDL [Mass/Vol] 37 mg/dL Normal [facility] Comment on above: Performed By: #### L IPID, CMP, T7, TSH #### [facility] [address] [address] [address] Franky Olguin Cholesterol in LDL [Mass/Vol] 93.4 mg/dL Normal [facility] Comment on above: Performed By: #### L IPID, CMP, T7, TSH #### [facility] [address] [address] [address] Franky Olguin Cholesterol.total/Cho lesterol in HDL [Mass ratio] 4.5 {ratio} Normal [facility] Comment on above: Performed By: #### L IPID, CMP, T7, TSH #### [facility] [address] [address] [address] Franky Olguin HDL NORMAL > or = 60 mg/dl - LOW CARDIOVASCULAR RISK <40 mg/dl - HIGH CARDIOVASCULAR RISK Normal [facility] Comment on above: Performed By: #### L IPID, CMP, T7, TSH #### [facility] [address] [address] [address] Franky Olguin LDL CALC NORMAL SEE BELOW Normal [facility] Comment on above: Result Comment: <100 mg/dl OPTIMAL 100 - 129 mg/dl NEAR OR ABOVE OPTIMAL 130 - 159 mg/dl BORDERLINE HIGH 160 - 189 mg/dl HIGH >190 mg/dl VERY HIGH Performed By: #### L IPID, CMP, T7, TSH #### [facility] [address] [address] [address] Franky Olguin Triglyceride [Mass/Vol] 183 mg/dL Critically high <=150 [facility] Comment on above: Performed By: #### L IPID, CMP, T7, TSH #### [facility] [address] [address] [address] Franky Olguin VLDL CALC 36.6 mg/dL Normal [facility] Comment on above: Performed By: #### L IPID, CMP, T7, TSH #### [facility] [address] [address] [address] Franky Olguin PROF 14(COMP METB)on 021 Albumin [Mass/Vol] 3.9 g/dL Normal 3.5-5.0 [facility] Comment on above: Performed By: #### L IPID, CMP, T7, TSH #### [facility] [address] [address] [address] Franky Olguin Albumin/Globulin [Mass ratio] 1.0 {ratio} Normal [facility] Comment on above: Performed By: #### L IPID, CMP, T7, TSH #### [facility] [address] [place] [address] Dr. Franky Olguin ALP [Catalytic activity/Vol] 68 U/L Normal 38-126 [facility] Comment on above: Performed By: #### L IPID, CMP, T7, TSH #### [facility] [address] [place] [address] Dr. Franky Olguin ALT [Catalytic activity/Vol] 89 U/L Critically high 21-72 [facility] Comment on above: Performed By: #### L IPID, CMP, T7, TSH #### [facility] [address] [address] [address] Franky Olguin Anion gap [Moles/Vol] 13.1 mmol/L Normal [facility] Comment on above: Performed By: #### L IPID, CMP, T7, TSH #### [facility] [address] [place] [address] Dr. Franky Olguin AST [Catalytic activity/Vol] 56 U/L Normal 17-59 [facility] Comment on above: Performed By: #### L IPID, CMP, T7, TSH #### [facility] [address] [place] [address] Dr. Franky Olguin Bilirubin [Mass/Vol] 0.7 mg/dL Normal 0.2-1.3 [facility] Comment on above: Performed By: #### L IPID, CMP, T7, TSH #### [facility] [address] [address] [address] Franky Olguin Calcium [Mass/Vol] 9.5 mg/dL Normal 8.4-10.2 [facility] Comment on above: Performed By: #### L IPID, CMP, T7, TSH #### [facility] [address] [address] [address] Franky Olguin Chloride [Moles/Vol] 104 mmol/L Normal 98-107 [facility] Comment on above: Performed By: #### L IPID, CMP, T7, TSH #### [facility] [address] [place] [address] Dr. Franky Olguin CO2 [Moles/Vol] 25.1 mmol/L Normal 22.0-30.0 [facility] Comment on above: Performed By: #### L IPID, CMP, T7, TSH #### [facility] [address] [place] [address] Dr. Franky Olguin Creatinine [Mass/Vol] 1.19 mg/dL Normal 0.66-1.25 [facility] Comment on above: Performed By: #### L IPID, CMP, T7, TSH #### [facility] [address] [place] [address] Dr. Franky Olguin EGFR-AF GERMAN >60 Normal >=60 [facility] Comment on above: Performed By: #### L IPID, CMP, T7, TSH #### [facility] [address] [place] [address] Dr. Franky Olguin EGFR-NON AF GERMAN >60 Normal >=60 [facility] Comment on above: Performed By: #### L IPID, CMP, T7, TSH #### [facility] [address] [place] [address] Dr. Franky Olguin Globulin (S) [Mass/Vol] 4.0 g/dL Normal [facility] Comment on above: Performed By: #### L IPID, CMP, T7, TSH #### [facility] [address] [place] [address] Dr. Franky Olguin Glucose [Mass/Vol] 133 mg/dL Critically high 74-106 [facility] Comment on above: Performed By: #### L IPID, CMP, T7, TSH #### [facility] [address] [place] [address] Dr. Franky Olguin Potassium [Moles/Vol] 4.2 mmol/L Normal 3.4-5.0 [facility] Comment on above: Performed By: #### L IPID, CMP, T7, TSH #### [facility] [address] [address] [address] Franky Olguin Protein [Mass/Vol] 7.9 g/dL Normal 6.1-8.2 [facility] Comment on above: Performed By: #### L IPID, CMP, T7, TSH #### [facility] [address] [place] [address] Dr. Franky Olguin Sodium [Moles/Vol] 138 mmol/L Normal 137-145 [facility] Comment on above: Performed By: #### L IPID, CMP, T7, TSH #### [facility] [address] [place] [address] Dr. Franky Olguin Urea nitrogen [Mass/Vol] 19.0 mg/dL Normal 9.0-20.0 [facility] Comment on above: Performed By: #### L IPID, CMP, T7, TSH #### [facility] [address] [place] [address] Dr. Franky Olguin Urea nitrogen/Creatinine [Mass ratio] 16.0 mg/mg Normal [facility] Comment on above: Performed By: #### L IPID, CMP, T7, TSH #### [facility] [address] [place] [address] Dr. Franky Olguin TSHon 03-25-2021 TSH 4.571 uIU/mL Normal 0.470-4.680 [facility] Comment on above: Performed By: #### L IPID, CMP, T7, TSH #### [facility] [address] [place] [address] Dr. Franky Olguin TSH RANGE SEE BELOW Normal [facility] Comment on above: Result Comment: <0.3 4 UIU/ml HYPERTHYROID 0.34-5.60 UIU/ml EUTHYROID >5.60 UIU/ml HYPOTHYROID Performed By: #### L IPID, CMP, T7, TSH #### [facility] [address] [address] [address] Franky Olguin US venous duplex LE LTon US venous duplex LE LT [facility] [place] [address] [place] [address] Ultrasound Report Signed Patient: Holden Askew MR#: [id number] 98 : 1965 Acct:[id number] Age/Sex: 56 / M ADM Date: 03/12/21 Loc: [facility] ER Room: Type: [facility] CLI Attending Dr: Jaime Wooten [...] Jaime Wooten MD03/18/2021 3:20 PM [facility] Tech: Kamala Wells Transcribed By: [facility] 03/18/21 1520 Dictated By: Jaime Wooten MD 03/18/21 1518 Signed By: 03/18/21 1520 [facility] Auth for Release of Medical Recordson 02-02-2021 Auth for Release of Medical Records [id number] 1.00CD:127 [facility] 01-28-2021 Forms [id number] #1.00CD:127 Normal [facility] 01-21-2021 Forms [id number] #1.00CD:127 Normal [facility] Screenson 12-23-2020 Screens [id number] #1.00CD:127 Normal [facility] Screens [id number] #1.00CD:127 Normal [facility] Ambulatory Clinical Summaryo n 12-18-2020 Ambulatory Clinical Summary {[id number]}CD:[id number] Normal [facility] 12-18-2020 Forms [id number] #1.00CD:127 Normal [facility] General Surgery Office/Clini c Noteon 12-17-2020 General [...] by Dr. Jones. He has been using ecuv-hgg-ksiyzgx hose for several years now and he [...] also tel (more content not included)... Normal [facility] Comment on above: Result Comment: Elec tronically Signed By: ERICA CARRERA, Cecilia Jeffrey\.waqas\Date and Time Signed: 12/17/20 13:46 EDT Patient Correspondenceon Patient Correspondence 104.... [id number] #1.00CD:127 Normal [facility] Retail - Clinical Noteon Retail - Clinical Note [id number] #1.00CD:127 [facility] Vital Signs Date Time Vital Sign Value Performing Clinician Facility 03-12-2021 13:30-0400 Body height 185.42 cm Jaime Wooten Other [facility] Other 03-12-2021 13:30-0400 Body mass index (BMI) [Ratio] 40.63 kg/m2 Jaime Wooten Other [facility] Other 03-12-2021 13:30-0400 Body weight 139.71 kg Jaime Wooten Other [facility] Other 03-12-2021 13:30-0400 Diastolic blood pressure 118 mm[Hg] Jaime Wooten Other [facility] Other 03-12-2021 13:30-0400 Systolic blood pressure 161 mm[Hg] Jaime Wooten Other [facility] Other Encounters Encounter Date Encounter Type Care Provider Facility Start: 07-07-2021 End: 07-07-[address] JESÚS BEEBE Facility:[facility] Start: 05-13-2021 End: 05-13-[address] JESÚS BEEBE Facility:[facility] Start: 04-03-2021 Encounter for genera l adult medical examination without abnormal findings DR JESÚS BEEBE [facility] Start: 03-25-2021 End: 03-26-[address] JESÚS BEEBE Facility:[facility] Start: 03-25-2021 End: 03-26-2021 Encounter for general adult medical examination without abnormal findings DR JESÚS BEEBE Facility:[facility] Start: 03-12-2021 Office outpatient vi sit 15 minutes Jaime BERNSTEIN Vascular Surgery Procedures Date Procedure Procedure Detail Performing Clinician Start: 03-25-[address] GRETCHEN BEEBE Comment on above: Performed By: #### P [facility] #### [facility] [address] [place] [address] Dr. Franky Olguin Payers Date Payer Category Payer Unknown [id number] [id number] [id number] 1965 Unknown [id number] [id number] 1965 Unknown [id number] [id number] [id number] 1959 Unknown [id number] Social History Date Type Detail Facility Sex Assigned At [facility] Other Evaluation note 03-12-2021 Note Date & [...] lower extremity with pain (ICD-10 - I83.812) [facility] Other History general Narrative - Reported Note Date & Type Note Facility History general Narrative - Reported Type Medical History Varicose veins Surgical History vein procedure (Dr. Jones) [facility] Other Summary Purpose Family History No Family [...] content) DATE CREATED AUTHOR 02/03/2021 [facility] Shepherd [facility] DATE CREATED AUTHOR AUTHOR'S ORGANIZ ATION 07/07/2021 [facility] DATE CREATED AUTHOR AUTHOR'S ORGANIZ ATION 07/10/2021 [facility] REASON FOR VISIT (unrecogniz ed [...] BE BASED ON THE PRIMARY CLINICAL RECORDS. [employer] provides no warranty or guarantee of the accuracy or completeness of information in this document.
--- OUTSIDE RECORDS SUMMARY | 2025-02-01 07:15 | XMS_ITS | Patient Health Record ---
Author Organization [facility] in [place] Address [address] [place] [address] Care Team Providers Care On Site Manager Name Role Phone Aydin Beebe Primary Care Provider Allergies No Known Allergies Results Component Value Reference Range Notes XR knee LT 4V Reviewed date:07/24/2024 12:50:42 PM Interpretation: Performing Lab: Notes/Report: Source Facility: [place] [address] XRay Report Signed Patient: HOLDEN ASKEW MR#: [id number] : 1965 Acct:[id number] Age/Sex: 59 / M ADM Date: 07/23/24 Loc: EC Attending Dr: José Luis Vargas M.D. Ordering Physician: José Luis Vargas M.D. Date of Service: 07/23/24 Procedure(s): XR knee LT 4V Accession Number(s): [id number] cc: Jesús Beebe M.D.; José Luis Vargas M.D. [facility] [place] [address] Patient Name: HOLDEN ASKEW MRN: [id number] date: 1965 Sex: M Assigned Patient Location: EC Current Patient Location: Accession/Order Number: [id number] Exam Date: 07/23/2024 13:13 Report Date: 07/24/2024 10:00 At the request of: JOSÉ LUIS VARGAS Procedure: XR knee LT 4V PROCEDURE: XR knee LT 4V COMPARISON: None. HISTORY: LEFT KNEE PAIN FINDINGS: BONES:No acute fracture or dislocation. Moderate tricompartmental osteoarthropathy with joint space narrowing and marginal osteophyte formation SOFT TISSUES:Negative. No visible soft tissue swelling. EFFUSION:Trace joint effusion OTHER: Negative. XR/XR knee LT 4V IMPRESSION: Moderate osteoarthritis. Electronically authenticated by: LUZ MARINA MCKEON Date: 07/24/2024 10:00 Dictated By: Luz Marina Mckeon M.D. Signed By: 07/24/24 1002 DD/ 1000 TD/TT: [employer]: [place] [address] XRay Report Signed Patient: MARY ASKEW MR#: [id number] : 1965 Acct:[id number] Age/Sex: 59 / M ADM Date: 07/23/24 Loc: EC Attending Dr: José Luis Vargas M.D. Ordering Physician: José Luis Vargas M.D. Date of Service: 07/23/24 Procedure(s): XR knee LT 4V Accession Number(s): [id number] cc: Jesús Beebe M.D. ; José Luis Vargas M.D. [place] [id number] Patient Name: HOLDEN ASKEW MRN: [id number] date: 1965 Sex: M Assigned Patient Location: Current Patient Location: Accession/Order Numb er: [id number] Exam Date: 07/23/2024 13:13 Report Date: 07/24/2024 10:00 At the request of: JOSÉ LUIS VARGAS Procedure: XR knee LT 4V PROCEDURE: XR knee LT 4V COMPARISON: None. HISTORY: LEFT KNEE PAIN FINDINGS: BONES:No acute fract ure or dislocation. Moderate tricompartmental osteoarthropathy wit h joint space narrowing and marginal osteophyte formation SOFT TISSUES:Negativ e. No visible soft tissue swelling. EFFUSION:Trace joint effusion OTHER: Negative. X R/XR knee LT 4V IMPRESSION: Moderate osteoarthritis. Electronically authe nticated by: LUZ MARINA MCKEON Date: 07/24/2024 10:00 Dictated By: Luz Marina Mckeon M.D. Signed By: 07/24/24 1002 DD/ 1000 TD/TT: [employer]: knee LT wo con Reviewed date:04/05/2024 07:18:45 PM Interpretation: Performing Lab: Notes/Report: Source Facility: [place] [address] Magnetic Resonance Report Signed Patient: HOLDEN ASKEW MR#: [id number] : 1965 Acct:[id number] Age/Sex: 59 / M ADM Date: 04/04/24 Loc: MRI Attending Dr: Jesús Beebe M.D. Ordering Physician: Jesús Beebe M.D. Date of Service: 04/04/24 Procedure(s): knee LT wo con Accession Number(s): [id number] cc: Jesús Beebe M.D. [place] [address] Patient Name: HOLDEN ASKEW MRN: [id number] date: 1965 Sex: M Assigned Patient Location: MRI Current Patient Location: Accession/Order Number: [id number] Exam Date: 04/04/2024 06:50 Report Date: 04/05/2024 08:45 At the request of: JESÚS BEEBE Procedure: MR knee LT wo con EXAMINATION: MR knee LT wo con HISTORY: osteoarthritis of left knee M17.12 ; chronic left knee pain COMPARISON: XR knee left 12/12/2023 TECHNIQUE: A complete multi-planar MRI was performed. FINDINGS: MEDIAL COMPARTMENT MEDIAL MENISCUS: Absence versus marked maceration of the body of the meniscus with extension into the posterior junction and superior surface of the posterior horn. No visible separate fragment or flipped fragment. CARTILAGE: Thinning. No focal defect. BONES: Degenerative osteophytes along the articular margins. MCL AND MEDIAL CAPSULE: Normal medial collateral ligament and medial capsule. LATERAL COMPARTMENT LATERAL MENISCUS: Radial tear involving mid body. CARTILAGE: Thinning. No focal defect. BONES: Degenerative osteophytes along the articular margins. LCL/POSTEROLAT COMPLEX: Normal lateral collateral ligament, fascicles, lateral capsule and ligaments. ANTERIOR COMPARTMENT PATELLA: Degenerative osteophyte along the articular margins. CARTILAGE: Areas of complete loss of cartilage, most notable involving the lateral facet where there is a degenerative osteophyte along the superior margin of the patellar groove contacting the bony margin of the patella. TENDONS: Normal. EFFUSION: None. No synovitis or loose bodies. ACL: Normal appearing ligament. PCL: Normal appearing ligament. MENISCOFEMORAL: Normal meniscofemoral ligaments. OTHER: Negative. MR/MR knee LT wo con IMPRESSION: 1. Tear and significant degenerative changes of the medial meniscus. 2. Radial tear of mid body lateral meniscus. 3. Moderate thinning of the articular cartilage involving the medial and lateral compartments. 4. Areas of complete loss of cartilage overlying the patella. Electronically authenticated by: SAHIL SHEPHERD Date: 04/05/2024 08:45 Dictated By: Sahil Shepherd M.D. Signed By: 04/05/24847 DD/ 4 TD/TT: [employer]: [place] [address] Magnetic Resonance Report Signed Patient: MARY ASKEW MR#: [id number] : 1965 Acct:[id number] Age/Sex: 59 / M ADM Date: 04/04/24 Loc: MRI Attending Dr: Jesús Beebe M.D. Ordering Physician: Jesús Beebe M.D. Date of Service: 04/04/24 Procedure(s): MR knee LT wo con Accession Number(s): [id number] cc: Jesús Beebe M.D. [place] [id number] Patient Name: HOLDEN ASKEW MRN: [id number] date: 1965 Sex: M Assigned Patient Location: MRI Current Patient Location: Accession/Order Numb er: [id number] Exam Date: 06:50 Report Date: 04/05/2024 08:45 At the request of: JESÚS BEEBE Procedure: MR knee LT wo con EXAMINATION: MR knee LT wo con HISTORY: osteoarthri tis of left knee M17.12 ; chronic left knee pain COMPARISON: XR knee left 12/12/2023 TECHNIQUE: A complet e multi-planar MRI was performed. FINDINGS: MEDIAL COMPARTMENT MEDIAL MENISCUS: Abs ence versus marked maceration of the body of the meniscus with extension into the posterior junction and superior surface of the posterior horn. No v isible separate fragment or flipped fragment. CARTILAGE: Thinning. No focal defect. BONES: Degenerative osteophytes along the articular margins. MCL AND MEDIAL CAPSU LE: Normal medial collateral ligament and medial capsule. LATERAL COMPARTMENT LATERAL MENISCUS: Ra dial tear involving mid body. CARTILAGE: Thinning. No focal defect. BONES: Degenerative osteophytes along the articular margins. LCL/POSTEROLAT COMPL EX: Normal lateral collateral ligament, fascicles, lateral capsule and ligaments. ANTERIOR COMPARTMENT PATELLA: Degenerativ e osteophyte along the articular margins. CARTILAGE: Areas of complete loss of cartilage, most notable involving the lateral facet where there is a degenerative osteophyte along the superior margin of the patell ar groove contacting the bony margin of the patella. TENDONS: Normal. EFFUSION: None. No s ynovitis or loose bodies. ACL: Normal appearing ligament. PCL: Normal appearing ligament. MENISCOFEMORAL: Norm al meniscofemoral ligaments. OTHER: Negative. M R/MR knee LT wo con IMPRESSION: 1. Tear and signific ant degenerative changes of the medial meniscus. 2. Radial tear of mi d body lateral meniscus. 3. Moderate thinning of the articular cartilage involving the medial and lateral compartments. 4. Areas of complete loss of cartilage overlying the patella. Electronically authe nticated by: SAHIL SHEPHERD Date: 04/05/2024 08:45 Dictated By: Sahil Shepherd M.D. Signed By: 04/05/24847 DD/ 4 TD/TT: [employer]: GLUCOSE - IN OFFICE (Not yet reviewed by provider) Interpretation: Performing Lab: Notes/Report: Glucose 296 74 - 106 MG/DL Reason For Referral Diagnosis 1 Meniscus tear, left, initial encounter (S83.207A) Diagnosis 2 Articular cartilage disorder of left knee (M23.92) Referral Organization [facility] Referring Provider First Name Aydin Referring Provider Last Name Charli Referring Provider [facility] Referred Provider Sahil Ackerman Referred Provider Specialty Orthopedic S urgery Referral Priority Routine Medications Medication SIG (Take, Route, Frequency, Duration) Notes Start Date End Date Status Aspirin 81 81 MG 1 tablet Orally Once a day Active Blood Glucose Test Strip Active Blood Glucose Monitor System w/Device as directed Active Diclofenac Sodium 75 MG 1 tablet as need ed Orally Twice a day for 30 days 03/22/2024 Active Glimepiride 4 MG 1 tablet Orally bid for 30 days Active Lancets - as directed Active Januvia 100 MG 1 tablet Orally Once a day for 30 days 12/26/2024 Active metFORMIN HCl 500 MG TAKE 1 TABLET BY MO UT TWICE DAILY WITH A MEAL for 30 Active Lisinopril 20 MG Take 1 tablet by jose th once daily for 90 Active Social History Tobacco Use: Social History Observation Description Date Details (start date - stop date) Former Smoker 06/13/1984 - 06/13/1992 Tobacco Use/Smoking Question Answer Notes Patient is a former smoker When did you start smoking? 06/13/1984 When did you stop smoking? 06/13/1992 How long has it been since you last smoked? > 10 years Alcohol Screen (Audit-C) Question Answer Notes Did you have a drink contain ing alcohol in the past year? Yes How often did you have 6 or more drinks on one occasion in the past year? Never (0 point) How many drinks did you have on a typical day when you were drinking in the past year? 1 or 2 drinks (0 point) How often did you have a dri nk containing alcohol in the past year? Less than monthly (1 point) Points 1 Interpretation Negative AUDIT-C (Standard) Question Answer Notes Did you have a drink containing alcohol in the p ast year? No Points 0 Interpretation Negative Problems Problem Type SNOMED Code ICD Code Onset Dates Problem Status W/U Status Risk Notes Problem Essential hypertension (82990594) Essential hypertension (I10) Active confirmed Problem Hyperglycemia (64674221) Hyperglycemia (R73.9) Active confirmed Problem Hypertriglyceridemia (478970048) Hypertriglyceridemia (E78.1) Active confirmed Problem Well adult (507209935) Well adult (Z00.00) Active confirmed Problem Leg pain (07075443) Leg pain (M79.606) Active c onfirmed Problem Paronychia (80342114) Paronychia (L03.019) Activ e confirmed Problem Erectile dysfunction (disorder) (513011203) Impotence (N52.9) Active confirmed Problem Type II diabetes mellitus without complication (057958151) Diabetes mellitus type 2, controlled, without complications (E11.9) Active confirmed Problem Deep vein thrombophlebitis of lower leg, unspecified laterality (I80.209) Active confirmed Problem Derangement of knee (05139278) Articular cartilage disorder of left knee (M23.92) Active confirmed Problem Osteoarthritis of knee (296019552) Osteoarthritis of left knee (M17.12) Active confirmed Vital Signs Blood pressure diastolic 78 mm Hg 01/07/2025 Height 74 in 01/07/2025 Blood pressure systolic 128 mm Hg 01/07/2025 Weight 306 lbs 01/07/2025 BMI 39.28 kg/m2 01/07/2025 Encounters Encounter Location Date Provider Diagnosis [place] [address] [place] [address] 03/28/2024 Aydin Beebe [place] [address] [place] [address] 04/05/2024 Aydin Hoy Meniscus tear, left, initial encounter S83.207A and Articular cartilage disorder of left knee M23.92 [facility] [address] [place] [address] 04/06/2024 Aydin Kempy [facility] [address] [place] [address] 01/14/2025 Aydin Kempy [facility] [address] [place] [address] 01/14/2025 Aydin Hoy [facility] [address] [place] [address] 12/26/2024 Aydin Hoy Hyperglycemia R73.9 and Well adult Z00.00 [facility] [address] [place] [address] 03/22/2024 Aydin Hoy Osteoarthritis of le ft knee M17.12 [facility] [address] [place] [address] 01/07/2025 Aydin Hoy Diabetes mellitus ty pe 2, controlled, without complications E11.9 [facility] [address] [place] [address] 02/17/2024 Aydin Hoy Essential hypertensi on I10 and Diabetes mellitus type 2, controlled, without complications E11.9 [facility] [address] [place] [address] 05/18/2024 Aydin Hoy Essential hypertensi on I10 ; Diabetes mellitus type 2, controlled, without complications E11.9 and Osteoarthritis of left knee M17.12 Assessments Encounter Date Diagnosis (ICD Code) Assessment Notes Treatment Notes Treatment Clinical Notes Section Notes 01/07/2025 Diabetes mellitus type 2, controlled, without complications (ICD-10 - E11.9) 04/05/2024 Meniscus tear, left, initial encounter (ICD-10 - S83.207A) 04/05/2024 Articular cartilage disorder of left knee (ICD-10 - M23.92) 03/22/2024 Osteoarthritis of left knee (ICD-10 - M17.12) 12/26/2024 Hyperglycemia (ICD-10 - R73.9) disussed opetion - adding januvia 12/26/2024 Well adult (ICD-10 - Z00.00) 02/17/2024 Essential hypertension (ICD-10 - I10) 02/17/2024 Diabetes mellitus type 2, controlled, without complications (ICD-10 - E11.9) 05/18/2024 Essential hypertension (ICD-10 - I10) 05/18/2024 Diabetes mellitus type 2, controlled, without complications (ICD-10 - E11.9) 05/18/2024 Osteoarthritis of left knee (ICD-10 - M17.12) 01/07/2025 Other Yearly Flu Shot Yearly Eye Exam Check Feet Daily. Plan Of Treatment Pending Test Test Name Order Date GLUCOSE - IN OFFICE 12/26/2024 CMP (COMPLETE METABOLIC PANEL) 3 CMP (COMPLETE METABOLIC PANEL) 4 HEMOGLOBIN A1C (GLYCO) 01/26/2024 HEMOGLOBIN A1C (GLYCO) 04/13/2023 HEMOGLOBIN A1C (GLYCO) 12/26/2024 LIPID PANEL (CHOL/TRIG/HDL/LDL) 04/13/20 23 LIPID PANEL (CHOL/TRIG/HDL/LDL) 12/27/19 25 LIPID PANEL (CHOL/TRIG/HDL/LDL) 01/26/20 24 CBC WITH DIFF 01/26/2024 CBC WITH DIFF 04/13/2023 PSA, PROSTATE-SPECIFIC ANTIGEN 3 URIC ACID 12/26/2024 PSA, TOTAL 01/26/2024 STOOL OCCULT BLOOD 01/26/2024 STOOL OCCULT BLOOD 04/13/2023 STOOL OCCULT BLOOD 12/26/2024 MRI KNEE LT WO CON 03/22/2024 XR KNEE LT 3V 12/09/2023 THYROID PANEL (T4/TSH/FREE T3) 3 THYROID PANEL (T4/TSH/FREE T3) 4 THYROID PANEL (T4/TSH/FREE T3) 5 PSA, SCREENING 12/26/2024 CMP (COMP MET GALINDO) w/eGFR CKD-EPI 2024 CBC WITH DIFF 12/26/2024 Insurance Providers Payer Name Payer Address Payer Phone Subscriber Number Group Number Insured Name Patient Relationship to Insured Coverage Start Date Coverage End Date [employer] [address] [place] [address] [id number] Holden Askew Self - patient is the insured Medications Administered Medication Instructions Date of Administration Dosage Notes Kenalog-40 12/09/2023 80 mg with 1 cc lido ruth Synvisc 01/26/2024 2 mL Medical (General) History Medical History History ICD Code Skin rash R21 Other cough R05.8 Sinus mucosal thickening J34.89 Diabetes mellitus type 2, controlled, wi thout complications E11.9 Impotence N52.9 Well adult Z00.00 Essential hypertension I10 Otitis externa H60.90 Leg pain M79.606 Sebaceous cyst L72.3 Tinea cruris B35.6 Deep vein thrombophlebitis of lower leg, unspecified laterality I80.209 Aphthous ulcer K12.0 Lumbosacral strain S39.012A Gastroenteritis K52.9 Sinusitis J32.9 Hypertriglyceridemia E78.1 Surgical History Surgery Date(Month/Year) excision benign tumor from left leg Hospitalization History Reason Date(Month/Year) denies
[2025-02-01 07:55] LABS: Hematocrit 44.0 % (42.0-54.0); Hemoglobin 14.7 g/dL (14.0-18.0); Immature Granulocytes Abs Auto 0.06 10^3/uL (0.00-0.03); Immature Granulocytes Pct Auto 0.7 % (0.0-0.5); Lymphocytes Absolute Auto 3.0 10^3/uL (1.2-3.8); Mean Corpuscular HGB Conc 33.4 g/dL (29.9-35.2); Mean Corpuscular Hemoglobin 31.3 pg (25.9-34.0); Mean Corpuscular Volume 93.6 fL (80.0-94.0); Platelet Count 194 10^3/uL (150-450); Red Blood Count 4.70 10^6/uL (4.70-6.10); White Blood Count 8.0 10^3/uL (4.0-11.0)
[2025-02-01 08:42] LABS: Alanine Aminotransferase 63 U/L (16-63); Albumin Globulin Ratio 1.0; Albumin Level 4.0 g/dL (3.4-5.0); Alkaline Phosphatase 69 U/L (46-116); Anion Gap 14.5; Aspartate Amino Transferase 33 U/L (15-37); Blood Urea Nitrogen 14.0 mg/dL (7.0-18.0); Calcium 9.1 mg/dL (8.5-10.1); Carbon Dioxide 24.8 mmol/L (21.0-32.0); Chloride 104 mmol/L (98-107); Cholesterol 177 mg/dL (<=200); Estimated GFR (African America >60 (>=60 mL/min/1.73m^2); Estimated GFR (Non-African Ame >60 (>=60 mL/min/1.73m^2); Free T3 2.28 pg/mL (2.18-3.98); Globulin 4.0 g/dL; Glucose 139 mg/dL (74-106); HDL Cholesterol 31 mg/dL (40-60); Potassium 4.3 mmol/L (3.5-5.1); Sodium 139 mmol/L (136-145); Thyroid Stimulating Hormone 4.295 uIU/mL (0.358-3.740); Total Protein 8.0 g/dL (6.4-8.2); Triglycerides 259 mg/dL (<=150); Uric Acid 5.9 mg/dL (3.5-7.2); VLDL CHOLESTEROL 51.8 mg/dL
== END 2025-02-01 07:13 | disposition home or self-care (01) ==
LOC: LAB 07:13
PROVIDERS: PCP Family Medicine; Visit Provider Family Medicine
DX: Z00.00 Encounter for general adult medical examination without abnormal findings (principal); Z12.5 Encounter for screening for malignant neoplasm of prostate
CPT/HCPCS: 36415; 80053; 80061; 83036; 84436; 84443; 84481; 84550; 85025; G0103

== ENCOUNTER 2025-03-04 06:40 | Outpatient (OUT) | payer BC, SELFPAY ==
--- OUTSIDE RECORDS SUMMARY | 2025-03-04 06:44 | XMS_ITS | CCD ---
Author Organization [facility] Care Team Providers Care Crate Icer Name Role Phone DR JESÚS BEEBE Primary [...] Detected Critically abnormal NOT DETECTED [facility] Comment on above: Result Comment: This test is not yet approved or cleared by the [place] FDA. When there are no FDA-approved or cleared tests available, and other criteria are met, FDA can make tests available under an emergency access mechanism called an Emergency Use Authorization (EUA). The EUA for this test is supported by the [place] of Health and Human Service's (HHS's) declaration [...] Performed By: #### C VDTBH #### [facility] [address] [address] [address] Franky Olguin [facility]on SARS-CoV-2 (COVID-19) RNA ABEL+probe Ql (Unsp spec) Not detected Normal NOT DETECTED [facility] Comment on above: Result Comment: This test is not yet approved or cleared by the [place] FDA. When there are no FDA-approved or cleared tests available, and other criteria are met, FDA can make tests available under an emergency access mechanism called an Emergency Use Authorization (EUA). The EUA for this test is supported by the [place] of Health and Human Service's (HHS's) declaration [...] Performed By: #### C VDTBH #### [facility] [address] [place] [address] Dr. Franky Olguin CBC AUTO DIFFon 03-25-2021 BASO # 0.1 103/ul Normal 0.0-0.1 [facility] Comment on above: Performed By: #### C BC #### [facility] [address] [place] [address] Dr. Franky Olguin Basophils/100 WBC (Bld) 0.8 % Normal 0.2-2.0 [facility] Comment on above: Performed By: #### C BC #### [facility] [address] [place] [address] Dr. Franky Olguin EO # 0.2 103/ul Normal 0.0-0.7 [facility] Comment on above: Performed By: #### C BC #### [facility] [address] [place] [address] Dr. Franky Olguin Eosinophils/100 WBC (Bld) 2.3 % Normal 0.9-7.0 [facility] Comment on above: Performed By: #### C BC #### [facility] [address] [place] [address] Dr. Franky Olguin Erythrocyte distribution width (RBC) [Ratio] 13.0 % Normal 11.0-15.0 [facility] Comment on above: Performed By: #### C BC #### [facility] [address] [place] [address] Dr. Franky Olguin Hematocrit (Bld) [Volume fraction] 44.9 % Normal 42.0-54.0 [facility] Comment on above: Performed By: #### C BC #### [facility] [address] [place] [address] Dr. Franky Olguin Hemoglobin (Bld) [Mass/Vol] 14.5 g/dL Normal 14.0-18.0 [facility] Comment on above: Performed By: #### C BC #### [facility] [address] [place] [address] Dr. Franky Olguin IG # 0.03 10e3/ul Normal 0.00-0.03 [facility] Comment on above: Performed By: #### C BC #### [facility] [address] [place] [address] Dr. Franky Olguin IG % 0.4 % Normal 0.0-0.5 [facility] Comment on above: Performed By: #### C BC #### [facility] [address] [place] [address] Dr. Franky Olguin LYMPH # 2.3 103/ul Normal 1.2-3.8 [facility] Comment on above: Performed By: #### C BC #### [facility] [address] [place] [address] Dr. Franky Olguin Lymphocytes/100 WBC (Bld) 30.3 % Normal 20.5-60.0 [facility] Comment on above: Performed By: #### C BC #### [facility] [address] [place] [address] Dr. Franky Olguin MANUAL DIFF REQ NO Normal [facility] Comment on above: Performed By: #### C BC #### [facility] [address] [place] [address] Dr. Franky Olguin MCH (RBC) [Entitic mass] 30.5 pg Normal 25.9-34.0 [facility] Comment on above: Performed By: #### C BC #### [facility] [address] [place] [address] Dr. Franky Olguin MCHC (RBC) [Mass/Vol] 32.3 g/dL Normal 29.9-35.2 [facility] Comment on above: Performed By: #### C BC #### [facility] [address] [place] [address] Dr. Franky Olguin MCV (RBC) [Entitic vol] 94.5 fL Critically high 80.0-94.0 [facility] Comment on above: Performed By: #### C BC #### [facility] [address] [place] [address] Dr. Franky Olguin MONO # 0.6 103/ul Normal 0.3-0.8 [facility] Comment on above: Performed By: #### C BC #### [facility] [address] [place] [address] Dr. Franky Olguin Monocytes/100 WBC (Bld) 8.2 % Normal 1.7-12.0 [facility] Comment on above: Performed By: #### C BC #### [facility] [address] [place] [address] Dr. Franky Olguin NEUT # 4.5 103/ul Normal 1.4-6.5 [facility] Comment on above: Performed By: #### C BC #### [facility] [address] [place] [address] Dr. Franky Olguin Neutrophils/100 WBC (Bld) 58.0 % Normal 43.0-75.0 [facility] Comment on above: Performed By: #### C BC #### [facility] [address] [place] [address] Dr. Franky Olguin Platelet mean volume (Bld) [Entitic vol] 9.9 fL Normal 9.5-13.5 [facility] Comment on above: Performed By: #### C BC #### [facility] [address] [place] [address] Dr. Franky Olguin PLT 199 103/ul Normal 150-450 [facility] Comment on above: Performed By: #### C BC #### [facility] [address] [place] [address] Dr. Franky Olguin RBC 4.75 106/ul Normal 4.70-6.10 [facility] Comment on above: Performed By: #### C BC #### [facility] [address] [place] [address] Dr. Franky Olguin WBC 7.7 103/ul Normal 4.0-11.0 [facility] Comment on above: Performed By: #### C BC #### [facility] [address] [place] [address] Dr. Franky Olguin FREE THYROXINE INDEX T7on FTI 1.92 Normal [facility] Comment on above: Performed By: #### L IPID, CMP, T7, TSH #### [facility] [address] [place] [address] Dr. Franky Olguin T3U 30.0 % Normal 23.5-40.5 [facility] Comment on above: Performed By: #### L IPID, CMP, T7, TSH #### [facility] [address] [address] [address] Franky Olguin T4 [Mass/Vol] 6.40 ug/dL Normal 5.53-11.00 [facility] Comment on above: Performed By: #### L IPID, CMP, T7, TSH #### [facility] [address] [address] [address] Franky Olguin GLYCOHEMOGLOBIN A1Con 2020 ADA RECOMMENDATION ADA THERAPEUTIC TARGET 6.0 - 7.0 ACTION SUGGESTED > 7.0 Normal [facility] Comment on above: Performed By: #### A 1C #### [facility] [address] [place] [address] Dr. Franky Olguin Glucose [Mass/Vol] 151 mg/dL Normal [facility] Comment on above: Performed By: #### A 1C #### [facility] [address] [address] [address] Franky Olguin HbA1c (Bld) [Mass fraction] 6.9 % Critically high <=6.0 [facility] Comment on above: Performed By: #### A 1C #### [facility] [address] [place] [address] Dr. Franky Olguin LIPID PROFILEon 03-25-2021 CHOL-HDL RATIO NORM SEE BELOW Normal [facility] Comment on above: Result Comment: 3.3 - 4.4 LOW RISK 4.4 - 7.1 AVERAGE RISK 7.1 - 11.0 MODERATE RISK >11.0 HIGH RISK Performed By: #### L IPID, CMP, T7, TSH #### [facility] [address] [address] [address] Franky Olguin Cholesterol [Mass/Vol] 167 mg/dL Normal <=200 [facility] Comment on above: Performed By: #### L IPID, CMP, T7, TSH #### [facility] [address] [address] [address] Franky Olguin Cholesterol in HDL [Mass/Vol] 37 mg/dL Normal [facility] Comment on above: Performed By: #### L IPID, CMP, T7, TSH #### [facility] [address] [address] [address] Franky Olguin Cholesterol in LDL [Mass/Vol] 93.4 mg/dL Normal [facility] Comment on above: Performed By: #### L IPID, CMP, T7, TSH #### [facility] [address] [address] [address] Franky Olguin Cholesterol.total/Cho lesterol in HDL [Mass ratio] 4.5 {ratio} Normal [facility] Comment on above: Performed By: #### L IPID, CMP, T7, TSH #### [facility] [address] [address] [address] Franky Olguin HDL NORMAL > or = 60 mg/dl - LOW CARDIOVASCULAR RISK <40 mg/dl - HIGH CARDIOVASCULAR RISK Normal [facility] Comment on above: Performed By: #### L IPID, CMP, T7, TSH #### [facility] [address] [address] [address] Franky Olguin LDL CALC NORMAL SEE BELOW Normal [facility] Comment on above: Result Comment: <100 mg/dl OPTIMAL 100 - 129 mg/dl NEAR OR ABOVE OPTIMAL 130 - 159 mg/dl BORDERLINE HIGH 160 - 189 mg/dl HIGH >190 mg/dl VERY HIGH Performed By: #### L IPID, CMP, T7, TSH #### [facility] [address] [address] [address] Franky Olguin Triglyceride [Mass/Vol] 183 mg/dL Critically high <=150 [facility] Comment on above: Performed By: #### L IPID, CMP, T7, TSH #### [facility] [address] [address] [address] Franky Olguin VLDL CALC 36.6 mg/dL Normal [facility] Comment on above: Performed By: #### L IPID, CMP, T7, TSH #### [facility] [address] [address] [address] Franky Olguin PROF 14(COMP METB)on 021 Albumin [Mass/Vol] 3.9 g/dL Normal 3.5-5.0 [facility] Comment on above: Performed By: #### L IPID, CMP, T7, TSH #### [facility] [address] [address] [address] Franky Olguin Albumin/Globulin [Mass ratio] 1.0 {ratio} Normal [facility] Comment on above: Performed By: #### L IPID, CMP, T7, TSH #### [facility] [address] [place] [address] Dr. Franky Olguin ALP [Catalytic activity/Vol] 68 U/L Normal 38-126 [facility] Comment on above: Performed By: #### L IPID, CMP, T7, TSH #### [facility] [address] [place] [address] Dr. Franky Olguin ALT [Catalytic activity/Vol] 89 U/L Critically high 21-72 [facility] Comment on above: Performed By: #### L IPID, CMP, T7, TSH #### [facility] [address] [address] [address] Franky Olguin Anion gap [Moles/Vol] 13.1 mmol/L Normal [facility] Comment on above: Performed By: #### L IPID, CMP, T7, TSH #### [facility] [address] [place] [address] Dr. Franky Olguin AST [Catalytic activity/Vol] 56 U/L Normal 17-59 [facility] Comment on above: Performed By: #### L IPID, CMP, T7, TSH #### [facility] [address] [place] [address] Dr. Franky Olguin Bilirubin [Mass/Vol] 0.7 mg/dL Normal 0.2-1.3 [facility] Comment on above: Performed By: #### L IPID, CMP, T7, TSH #### [facility] [address] [address] [address] Franky Olguin Calcium [Mass/Vol] 9.5 mg/dL Normal 8.4-10.2 [facility] Comment on above: Performed By: #### L IPID, CMP, T7, TSH #### [facility] [address] [address] [address] Franky Olguin Chloride [Moles/Vol] 104 mmol/L Normal 98-107 [facility] Comment on above: Performed By: #### L IPID, CMP, T7, TSH #### [facility] [address] [place] [address] Dr. Franky Olguin CO2 [Moles/Vol] 25.1 mmol/L Normal 22.0-30.0 [facility] Comment on above: Performed By: #### L IPID, CMP, T7, TSH #### [facility] [address] [place] [address] Dr. Franky Olguin Creatinine [Mass/Vol] 1.19 mg/dL Normal 0.66-1.25 [facility] Comment on above: Performed By: #### L IPID, CMP, T7, TSH #### [facility] [address] [place] [address] Dr. Franky Olguin EGFR-AF BOLIVIAN >60 Normal >=60 [facility] Comment on above: Performed By: #### L IPID, CMP, T7, TSH #### [facility] [address] [place] [address] Dr. Franky Olguin EGFR-NON AF BOLIVIAN >60 Normal >=60 [facility] Comment on above: Performed By: #### L IPID, CMP, T7, TSH #### [facility] [address] [place] [address] Dr. Franky Olguin Globulin (S) [Mass/Vol] 4.0 g/dL Normal [facility] Comment on above: Performed By: #### L IPID, CMP, T7, TSH #### [facility] [address] [place] [address] Dr. Franky Olguin Glucose [Mass/Vol] 133 mg/dL Critically high 74-106 [facility] Comment on above: Performed By: #### L IPID, CMP, T7, TSH #### [facility] [address] [place] [address] Dr. Franky Olguin Potassium [Moles/Vol] 4.2 mmol/L Normal 3.4-5.0 [facility] Comment on above: Performed By: #### L IPID, CMP, T7, TSH #### [facility] [address] [address] [address] Franky Olguin Protein [Mass/Vol] 7.9 g/dL Normal 6.1-8.2 [facility] Comment on above: Performed By: #### L IPID, CMP, T7, TSH #### [facility] [address] [place] [address] Dr. Franky Olguin Sodium [Moles/Vol] 138 mmol/L Normal 137-145 [facility] Comment on above: Performed By: #### L IPID, CMP, T7, TSH #### [facility] [address] [place] [address] Dr. Franky Olguin Urea nitrogen [Mass/Vol] 19.0 mg/dL Normal 9.0-20.0 [facility] Comment on above: Performed By: #### L IPID, CMP, T7, TSH #### [facility] [address] [place] [address] Dr. Franky Olguin Urea nitrogen/Creatinine [Mass ratio] 16.0 mg/mg Normal [facility] Comment on above: Performed By: #### L IPID, CMP, T7, TSH #### [facility] [address] [place] [address] Dr. Franky Olguin TSHon 03-25-2021 TSH 4.571 uIU/mL Normal 0.470-4.680 [facility] Comment on above: Performed By: #### L IPID, CMP, T7, TSH #### [facility] [address] [place] [address] Dr. Franky Olguin TSH RANGE SEE BELOW Normal [facility] Comment on above: Result Comment: <0.3 4 UIU/ml HYPERTHYROID 0.34-5.60 UIU/ml EUTHYROID >5.60 UIU/ml HYPOTHYROID Performed By: #### L IPID, CMP, T7, TSH #### [facility] [address] [address] [address] Franky Olguin US venous duplex LE LTon US venous duplex LE LT [facility] [place] [address] [place] [address] Ultrasound Report Signed Patient: Holden Askew MR#: [id number] 98 : 1965 Acct:[id number] Age/Sex: 56 / M ADM Date: 03/12/21 Loc: [facility] Room: Type: [facility] CLI Attending Dr: Jaime Wooten MD [...] Jaime Wooten MD03/18/2021 3:20 PM [facility] Tech: Kamala Wells Transcribed By: [facility] 03/18/21 1520 Dictated By: Jaime Wooten MD 03/18/21 1518 Signed By: 03/18/21 1520 [facility] Auth for Release of Medical Recordson 02-02-2021 Auth for Release of Medical Records [id number]# 1.00CD:127 [facility] Formson 01-28-2021 Forms [id number] #1.00CD:127 Normal [facility] 01-21-2021 Forms [id number] #1.00CD:127 Normal [facility] Screenson 12-23-2020 Screens [id number] #1.00CD:127 Normal [facility] Screens [id number] #1.00CD:127 Normal [facility] Ambulatory Clinical Summaryo n 12-18-2020 Ambulatory Clinical Summary {[id number]}CD:[id number] Normal [facility] 12-18-2020 Forms [id number] #1.00CD:127 Normal [facility] General Surgery Office/Clini c Noteon 12-17-2020 General [...] by Dr. Jones. He has been using gcnq-yuh-[id number] hose for several years now and he [...] also tel (more content not included)... Normal [facility] Comment on above: Result Comment: Elec tronically Signed By: ERICA CARRERA, Cecilia Jeffrey\.waqas\Date and Time Signed: 12/17/20 13:46 EDT Patient Correspondenceon Patient Correspondence 104.... [id number] #1.00CD:127 Normal [facility] - Clinical Noteon Retail - Clinical Note [id number] #1.00CD:127 [facility] Vital Signs Date Time Vital Sign Value Performing Clinician Facility 03-12-2021 13:30-0400 Body height 185.42 cm Jaime Wooten Other [facility] Other 03-12-2021 13:30-0400 Body mass index (BMI) [Ratio] 40.63 kg/m2 Jaime Wooten Other [facility] Other 03-12-2021 13:30-0400 Body weight 139.71 kg Jaime Wooten Other [facility] Other 03-12-2021 13:30-0400 Diastolic blood pressure 118 mm[Hg] Jaime Wooten Other [facility] Other 03-12-2021 13:30-0400 Systolic blood pressure 161 mm[Hg] Jaime Wooten Other [facility] Other Encounters Encounter Date Encounter Type Care Provider Facility Start: 07-07-2021 End: 07-07-[address] JESÚS BEEBE Facility:[facility] Start: 05-13-2021 End: 05-13-[address] JESÚS BEEBE Facility:[facility] Start: 04-03-2021 Encounter for genera l adult medical examination without abnormal findings DR JESÚS BEEBE [facility] Start: 03-25-2021 End: 03-26-[address] JESÚS BEEBE Facility:[facility] Start: 03-25-2021 End: 03-26-2021 Encounter for general adult medical examination without abnormal findings DR JESÚS BEEBE Facility:[facility] Start: 03-12-2021 Office outpatient vi sit 15 minutes Jaime BERNSTEIN [facility] Surgery Procedures Date Procedure Procedure Detail Performing Clinician Start: 03-25-[address] GRETCHEN BEEBE Comment on above: Performed By: #### P [facility] #### [facility] [address] [place] [address] Dr. Franky Olguin Payers Date Payer Category Payer Unknown [id number] [id number] [id number] 1965 Unknown [id number] [id number] 1965 Unknown [id number] 1959 Unknown [id number] Social History Date Type Detail Facility Sex Assigned At [facility] Other Evaluation note 03-12-2021 Note Date & [...] lower extremity with pain (ICD-10 - I83.812) [facility] Other History general Narrative - Reported Note Date & Type Note Facility History general Narrative - Reported Type Medical History Varicose veins Surgical History vein procedure (Dr. Jones) [facility] Other Summary Purpose Family History No Family [...] content) DATE CREATED AUTHOR 02/03/2021 [facility] DATE CREATED AUTHOR AUTHOR'S ORGANIZ ATION 07/07/2021 [facility] DATE CREATED AUTHOR AUTHOR'S ORGANIZ ATION [...] BE BASED ON THE PRIMARY CLINICAL RECORDS. [employer] provides no warranty or guarantee of the accuracy or completeness of information in this document.
[2025-03-04 07:34] LABS: Free T3 3.60 pg/mL (2.18-3.98); Thyroid Stimulating Hormone 5.721 uIU/mL (0.358-3.740)
== END 2025-03-04 06:41 | disposition home or self-care (01) ==
LOC: LAB 06:41
PROVIDERS: PCP Family Medicine; Visit Provider Family Medicine
DX: E03.9 Hypothyroidism, unspecified (principal)
CPT/HCPCS: 36415; 84436; 84443; 84481

== ENCOUNTER 2025-04-04 09:55 | Outpatient (OUT) | payer BC, SELFPAY ==
--- OUTSIDE RECORDS SUMMARY | 2025-04-04 10:06 | XMS_ITS | CCD ---
Author Organization [facility] Care Team Providers Care Oracle Reports Developer Name Role Phone DR JESÚS BEEBE Primary [...] FRANKY ROMERO Consulting Unavailable Jaime Wooten Unavailable [phone] Problems Active Problems Problem ClassificationProblemDateDocumented DateEpisodic/ChronicOther upper respiratory disease (1 source)Other specified disorders of nose and nasal sinuses; Translations: [OTH SPEC D/O NOSE NASAL SINUSES]Onset: 86-98-6838VcfzjloeXancbvowksyn (3 sources)CONTACT W/AND (SUSP) EXPOS COVID-19; Translations: [CONTACT W/AND (SUSP) EXPOS COVID-19]Onset: 03-70-2244Sfzmkofawfbd (1 source)OTHER SPECIFIED COUGH; Translations: [OTHER SPECIFIED COUGH]Onset: 72-02-5282Fgbyk infection (1 source)COVID-19; Translations: [COVID-19]Onset: 07-09-2021 Past or Other Problems Problem ClassificationProblemDateDocumented DateEpisodic/ChronicUnclassified (1 source)CONTACT W/AND (SUSP) EXPOS COVID-19; Translations: [CONTACT W/AND (SUSP) EXPOS COVID-19]Onset: 43-95-7331Grhshtha veins of lower extremity (4 sources)Venous varices; Translations: [Varicose veins of left lower extremity with other complications]Onset: 03-12-2021 Resolved: 43-01-4204Rtfurilf Results Test NameValueInterpretationReference RangeFacilityCovid-19 PCR (CVDTBH)on 99-51-5800QZWF-CoV-2 (COVID-19) RNA ABEL+probe Ql (Unsp spec)DetectedCritically abnormalNOT DETECTEDThe [facility] HospitalComment on above:Result Comment: This test is not yet approved or cleared by the [place] FDA. When there are no FDA-approved or cleared tests available, and other criteria are met, FDA can make tests available under an emergency access mechanism called an Emergency Use Authorization (EUA). The EUA for this test is supported by the Sheet Metal Fabricator of Health and Human Service's (HHS's) declaration [...] which the test may no longer be used).Performed By: #### CVDTB #### [facility] [address] [place] [address] Dr. Franky OlguinCovid-19 PCR (CVDTB)on 98-94-4172XRAZ-CoV-2 (COVID-19) RNA ABEL+probe Ql (Unsp spec)Not detectedNormalNOT DETECTEDThe [facility] Comment on above:Result Comment: This test is not yet approved or cleared by the [place] FDA. When there are no FDA-approved or cleared tests available, and other criteria are met, FDA can make tests available under an emergency access mechanism called an Emergency Use Authorization (EUA). The EUA for this test is supported by the Sheet Metal Fabricator of Health and Human Service's (HHS's) declaration that circumstances exist to justify the emergency use of in vitro diagnostics for the detection and/or diagnosis of the virus that causes COVID- 19. This EUA will remain in effect (meaning [...] of clinical signs and symptoms consistent with SARS-CoV-2.Performed By: #### CVDTBH #### [facility] [address] [place] [address] Dr. Franky Reyes AUTO DIFFon 17-24-7077ITSC #0.1 103/ulNormal0.0-0.1The [facility] HospitalComment on above:Performed By: #### CBC #### [facility] [address] [place] [address] Dr. Franky OlguinBasophils/100 WBC (Bld)0.8 %Normal0.2-2.0[facility] Comment on above:Performed By: #### CBC #### [facility] [address] [place] [address] Dr. Franky Tierney #0.2 103/ulNormal0.0-0.7The [facility] HospitalComment on above: Performed By: #### CBC #### [facility] [address] [place] [address] Dr. Franky Vailosinophils/100 WBC (Bld)2.3 %Normal0.9-7.0The [facility] Comment on above:Performed By: #### CBC #### [facility] [address] [place] [address] Dr. Franky Vailrythrocyte distribution width (RBC) [Ratio]13.0 %Snqpyv20.0-15.0 The [facility] HospitalComment on above:Performed By: #### CBC #### [facility] [address] [place] [address] Dr. Franky OlguinHematocrit (Bld) [Volume fraction]44.9 %Qlhrqv12.0-54.0The [facility] HospitalComment on above:Performed By: #### CBC #### [facility] [address] [place] [address] Dr. Franky OlguinHemoglobin (Bld) [Mass/Vol]14.5 g/zSGexqhw43.0-18.0The [facility] HospitalComment on above:Performed By: #### CBC #### [facility] [address] [place] [address] Dr. Franky Owens #0.03 10e3/ulNormal0.00-0.03The [facility] HospitalComment on above:Performed By: #### CBC #### [facility] [address] [place] [address] Dr. Franky Owens %0.4 %Normal0.0-0.5The [facility] HospitalComment on above: Performed By: #### CBC #### [facility] [address] [place] [address] Dr. Franky Everett #2.3 103/ulNormal1.2-3.8The [facility] HospitalComment on above:Performed By: #### CBC #### [facility] [address] [place] [address] Dr. Franky Chrishocytes/100 WBC (Bld)30.3 %Wnrbtr06.5-60.0The [facility] HospitalComascension [facility]org[facility] on above:Performed By: #### CBC #### [facility] [address] [place] [address] Dr. Franky RamosUAL DIFF REQNONormalThe [facility] HospitalComment on above: Performed By: #### CBC #### [facility] [address] [place] [address] Dr. Franky Barr (RBC) [Entitic mass]30.5 aiOmiphh84.9-34.0The [facility] HospitalComment on above:Performed By: #### CBC #### [facility] [address] [place] [address] Dr. Franky Barr (RBC) [Mass/Vol]32.3 g/aWYebusk53.9-35.2The [facility] HospitalComment on above:Performed By: #### CBC #### [facility] [address] [place] [address] Dr. Franky Barr (RBC) [Entitic vol]94.5 fLCritically high80.0-94.0The [facility] HospitalComment on above:Performed By: #### CBC #### [facility] [address] [address] [address] Franky Coelho #0.6 103/ulNormal0.3-0.8The [facility] HospitalComment on above:Performed By: #### CBC #### [facility] [address] [place] [address] Dr. Franky Moyaocytes/100 WBC (Bld)8.2 %Normal1.7-12.0The [facility] Comment on above:Performed By: #### CBC #### [facility] [address] [place] [address] Dr. Franky Montgomery #4.5 103/ulNormal1.4-6.5The [facility] HospitalComment on above:Performed By: #### CBC #### [facility] [address] [place] [address] Dr. Franky Saavedrautrophils/100 WBC (Bld)58.0 %Zcfclk63.0-75.0The [facility] HospitalComment on above:Performed By: #### CBC #### [facility] [address] [place] [address] Dr. Franky Stephenslet mean volume (Bld) [Entitic vol]9.9 fLNormal9.5-13.5The [facility] HospitalComment on above:Performed By: #### CBC #### [facility] [address] [place] [address] Dr. Franky OlguinPLT199 103/bdYivotx321-011Vcj [facility] HospitalComment on above: Performed By: #### CBC #### [facility] [address] [place] [address] Dr. Franky OlguinRBC4.75 106/ulNormal4.70-6.10The [facility] HospitalComment on above:Performed By: #### CBC #### [facility] [address] [place] [address] Dr. Franky OlguinWBC7.7 103/ulNormal4.0-11.0The [facility] HospitalComment on above: Performed By: #### CBC #### [facility] [address] [address] [address] Franky Orlando THYROXINE INDEX T7on 86-28-5664KVB2.92NoSelect Medical Specialty Hospital - YoungstownComment on above:Performed By: #### LIPID, CMP, T7, TSH #### [facility] [address] [address] [address] Franky OlguinT3U30.0 %Ebiyag64.5-40.5The [facility] HospitalComment on above: Performed By: #### LIPID, CMP, T7, TSH #### [facility] [address] [address] [address] Franky OlguinT4 [Mass/Vol]6.40 ug/dLNormal5.53-11.00The [facility] Comment on above:Performed By: #### LIPID, CMP, T7, TSH #### [facility] [address] [address] [address] Franky OlguinGLYCOHEMOGLOBIN A1Con 04-82-5730DQK RECOMMENDATIONADA THERAPEUTIC TARGET 6.0 - 7.0 ACTION SUGGESTED > 7.0NoSelect Medical Specialty Hospital - YoungstownComment on above:Performed By: #### A1C #### [facility] [address] [address] [address] Franky OlguinGlucose [Mass/Vol]151 mg/dLNoSelect Medical Specialty Hospital - YoungstownComment on above:Performed By: #### A1C #### [facility] [address] [address] [address] Franky OlguinHbA1c (Bld) [Mass fraction]6.9 %Critically high<=6.0The [facility] HospitalComment on above:Performed By: #### A1C #### [facility] [address] [address] [address] Franky OlguinLIPID PROFILEon 56-85-1368LNRL-HDL RATIO NORMSEE BELOWPremier HealthComment on above:Result Comment: 3.3 - 4.4 LOW RISK 4.4 - 7.1 AVERAGE RISK 7.1 - 11.0 MODERATE RISK >11.0 HIGH RISKPerformed By: #### LIPID, CMP, T7, TSH #### [facility] [address] [address] [address] Franky OlguinCholesterol [Mass/Vol]167 mg/dLNormal<=200[facility] Comment on above:Performed By: #### LIPID, CMP, T7, TSH #### [facility] [address] [address] [address] Franky OlguinCholesterol in HDL [Mass/Vol]37 mg/dLPremier Health Comment on above:Performed By: #### LIPID, CMP, T7, TSH #### [facility] [address] [address] [address] Franky Bridgesesterol in LDL [Mass/Vol]93.4 mg/dLPremier HealthComment on above:Performed By: #### LIPID, CMP, T7, TSH #### [facility] [address] [place] [address] Dr. Franky Patel.total/Cholesterol in HDL [Mass ratio]4.5 {ratio} NormalThe [facility] HospitalComment on above:Performed By: #### LIPID, CMP, T7, TSH #### [facility] [address] [address] [address] Franky Friedman NORMAL> or = 60 mg/dl - LOW CARDIOVASCULAR RISK <40 mg/dl - HIGH CARDIOVASCULAR RISKPremier HealthComascension borgess allegan hospital on above:Performed By: #### LIPID, CMP, T7, TSH #### [facility] [address] [address] [address] Franky OlguinLDL CALC NORMALSEE BELOWPremier HealthComment on above:Result Comment: <100 mg/dl OPTIMAL 100 - 129 mg/dl NEAR OR ABOVE OPTIMAL 130 - 159 mg/dl BORDERLINE HIGH 160 - 189 mg/dl HIGH >190 mg/dl VERY HIGH Performed By: #### LIPID, CMP, T7, TSH #### [facility] [address] [address] [address] Franky OlguinTriglyceride [Mass/Vol]183 mg/dLCritically high<=150The [facility] HospitalComment on above:Performed By: #### LIPID, CMP, T7, TSH #### [facility] [address] [address] [address] Franky CarverLDL CALC36.6 mg/dLNormalThe [facility] HospitalComment on above: Performed By: #### LIPID, CMP, T7, TSH #### [facility] [address] [address] [address] Franky Staton 14(COMP METB)on 28-25-5457Zglvmcv [Mass/Vol]3.9 g/dLNormal 3.5-5.0The [facility] HospitalComment on above:Performed By: #### LIPID, CMP, T7, TSH #### [facility] [address] [place] [address] Dr. Franky OlguinAlbumin/Globulin [Mass ratio]1.0 {ratio}NormalThe [facility] HospitalComment on above:Performed By: #### LIPID, CMP, T7, TSH #### [facility] [address] [place] [address] Dr. Franky Ngo [Catalytic activity/Vol]68 U/WQqqusk33-559Zoz [facility] HospitalComment on above:Performed By: #### LIPID, CMP, T7, TSH #### [facility] [address] [place] [address] Dr. Franky Marsh [Catalytic activity/Vol]89 U/LCritically rogj09-32Kgl [facility] HospitalComment on above:Performed By: #### LIPID, CMP, T7, TSH #### [facility] [address] [place] [address] Dr. Franky Silveira gap [Moles/Vol]13.1 mmol/LNormalThe [facility] on above:Performed By: #### LIPID, CMP, T7, TSH #### [facility] [address] [place] [address] Dr. Franky Hyman [Catalytic activity/Vol]56 U/WNrysra44-02Jbt [facility] HospitalComment on above:Performed By: #### LIPID, CMP, T7, TSH #### [facility] [address] [place] [address] Dr. Yilan ChangBilirubin [Mass/Vol]0.7 mg/dLNormal0.2-1.3TDayton Osteopathic Hospital Comment on above:Performed By: #### LIPID, CMP, T7, TSH #### [facility] [address] [address] [address] Franky OlguinCalcium [Mass/Vol]9.5 mg/dLNormal8.4-10.2The [facility] Comment on above:Performed By: #### LIPID, CMP, T7, TSH #### [facility] [address] [address] [address] Franky OlguinChloride [Moles/Vol]104 mmol/AWqshaw18-161NaaCleveland Clinic Union Hospital Comment on above:Performed By: #### LIPID, CMP, T7, TSH #### [facility] [address] [address] [address] Franky OlguinCO2 [Moles/Vol]25.1 mmol/FEsrjmn13.0-30.0The [facility] Comment on above:Performed By: #### LIPID, CMP, T7, TSH #### [facility] [address] [address] [address] Franky OlguinCreatinine [Mass/Vol]1.19 mg/dLNormal0.66-1.25The [facility] HospitalComment on above:Performed By: #### LIPID, CMP, T7, TSH #### [facility] [address] [address] [address] Franky VailGFR-AF MONTSERRATIAN>60Normal>=60The [facility] HospitalComment on above:Performed By: #### LIPID, CMP, T7, TSH #### [facility] [address] [address] [address] Franky VailGFR-NON AF MONTSERRATIAN>60Normal>=60The [facility] HospitalComment on above:Performed By: #### LIPID, CMP, T7, TSH #### [facility] [address] [address] [address] Franky OlguinGlobulin (S) [Mass/Vol]4.0 g/dLNormalThe [facility] HospitalComment on above:Performed By: #### LIPID, CMP, T7, TSH #### [facility] [address] [address] [address] Franky OlguinGlucose [Mass/Vol]133 mg/dLCritically qoil99-146Yjf [facility] HospitalComment on above:Performed By: #### LIPID, CMP, T7, TSH #### [facility] [address] [place] [address] Dr. Franky OlguinPotassium [Moles/Vol]4.2 mmol/LNormal3.4-5.0The [facility] Comment on above:Performed By: #### LIPID, CMP, T7, TSH #### [facility] [address] [place] [address] Dr. Franky OlguinProtein [Mass/Vol]7.9 g/dLNormal6.1-8.2[facility] Comment on above:Performed By: #### LIPID, CMP, T7, TSH #### [facility] [address] [place] [address] Dr. Franky OlguinSodium [Moles/Vol]138 mmol/ZOjijeu586-855Xmq [facility] Comment on above:Performed By: #### LIPID, CMP, T7, TSH #### [facility] [address] [place] [address] Dr. Franky OlguinUrea nitrogen [Mass/Vol]19.0 mg/dLNormal9.0-20.0[facility] HospitalComment on above:Performed By: #### LIPID, CMP, T7, TSH #### [facility] [address] [place] [address] Dr. Franky OlguinUrea nitrogen/Creatinine [Mass ratio]16.0 mg/mgNormalThe [facility] HospitalComment on above:Performed By: #### LIPID, CMP, T7, TSH #### [facility] [address] [place] [address] Dr. Franky Dunbar 76-13-9191IUP4.571 uIU/mLNormal0.470-4.680The [facility] HospitalComment on above:Performed By: #### LIPID, CMP, T7, TSH #### [facility] [address] [place], [place] [address] Dr. Franky Romo [facility] HospitalComment on above: Result Comment: <0.34 UIU/ml HYPERTHYROID 0.34-5.60 UIU/ml EUTHYROID >5.60 UIU/ml HYPOTHYROIDPerformed By: #### LIPID, CMP, T7, TSH #### [facility] [id number] Franky Kraft venous duplex LE LTon 02-97-8042UD venous duplex LE LT [facility] [place] [address] [place] [address] Ultrasound Report Signed Patient: Holden Chaney MR#: [id number] 98 : 1965 Acct:[id number] Age/Sex: 56 / M ADM Date: 03/12/21 Loc: [facility] Room: Type: [facility] Attending Dr: Jaime Wooten MD Ordering Provider: [...] Jaime Wooten MD03/18/2021 3:20 PM Dictation Location: [place] [address] Tech: Kamala Wells Transcribed By: ABRAHAN 03/18/21 1520 Dictated By: Jaime Wooten MD 03/18/21 1518 Signed By: 03/18/21 1520[facility] for Release of Medical Recordson 29-09-2596Zpwa for Release of Medical Records [id number]#1.00CD:[address] [place] [address] [id number]#1.00CD:[address] [facility] 95-46-5746Kpakz [id number]#1.00CD:[address] [place] [address] 01-07-5608Hfqiagn [id number]#1.00CD:[address] [place], [place] [id number]#1.00CD:[address] [place], [place] [address]Ambulatory Clinical Summaryon 35-41-7091Hiuelvgkkl Clinical Summary{27-x8-yo-1m-61-88-23-aj-fh-31-82-2g-ff-57-4e-e7}CD:804363DxtpnlKgoxfoDayton Children's Hospital 14-71-4002Iswhm [id number]#1.00CD:[address] [place], [place] [address]General Surgery Office/Clinic Noteon 84-15-5378Xapufvf Surgery Office/Clinic NoteHPI Staff New pt, self ref (saw Dr. Hunter in the past ) sima leg pain left leg pain worse needs hose rx Dr. Jones did surgery for venous malformation in History of Present Illness Mr. Chaney comes in for evaluation of recurrent varicose [...] by Dr. Jones. He has been using abzw-qzn-zyzmtuv hose for several years now and he thinks these do not work as well as the prescription hose I gave him when I saw him back in 2006. He has no history of deep vein thrombosis or thrombophlebitis. A duplex scan from 2006 showed no evidenceof DVT. There were superficial varices around the [...] swallowing difficulties, no hearing loss, no ear infection(s),no nose bleeds. Cardiovascular: normal blood pressure, no [...] stasis changes of the medial ankle. There isscarring consistent with his past history of surgery [...] of the lower extremities when possible, avoidance ofprolonged standing, daily exercise, weight loss if indicated, [...] as staged combination of laser surgery and phlebectomy/resection of the venous malformation, or phlebectomy and resection of the venous malformation initially. At present the patient would like towait on the study and possible treatment and just go into the support hose. I will keep him off work for a few days because of the aching and swelling he is having in the ankle and try to get him in p rescription hose as soon as possible. I did also tel (more content not included)...[facility] HospitalComment on above:Result Comment: Electronically Signed By: ERICA CARRERA, Cecilia Zavala\Date and Time Signed: 12/17/20 13:46 EDTPatient Correspondenceon 88-12-0495Vcpbaff Correspondence [id number]#1.00CD:[address] [place], [place] [address]Retail - Clinical Noteon 38-48-3882Zvwxsn - Clinical Note [id number]#1.00CD:[address] [place] [address] Vital Signs Date TimeVital SignValuePerforming EuvhgfnxwGwkdxyen68-20-5380 13:30-0400Body aftekd333.42 cmJaime Wooten Other [employer] Other 09-30-2021 13:30-0400Body mass index (BMI) [Ratio] 40.63 kg/l5AgnjabvJaime Wooten Other [employer] Other 09-30-2021 13:30-0400Body vtowry057.71 kgMaayde Wooten Other [employer] Other 09-30-2021 13:30-0400Diastolic blood ioklnnon801 mm[Hg]Jaime Wooten Other [employer] Other 09-30-2021 13:30-0400Systolic blood fwvjvamb716 mm[Hg] Jaime Wooten Other [employer] Other Encounters Encounter DateEncounter TypeCare ProviderFacilityStart: 07-07-2021 End: 44-52-0337nugsqmlzkaWH JESÚS HOYFacility:W5Dkobm: 05-13-2021 End: 96-17-8668hosetayrqtZI JESÚS HOYFacility:J9Nbdkf: 50-29-4909Zokqyhikj for general adult medical examination without abnormal findingsDR JESÚS Dunbar [facility]Start: 03-25-2021 End: 37-56-0422wxaquzihqvEX JESÚS Warnercility:O9Pvkah: 03-25-2021 End: 99-63-3670Jbeaxuxdc for general adult medical examination without abnormal findingsDR JESÚS Burtonity:M3Ofboa: 96-48-6994Vnzmgw outpatient visit 15 minutesMatthew [facility] [place] [facility] Procedures DateProcedureProcedure DetailPerforming ClinicianStart: 76-97-1200AKW screening DR JESÚS Melo on above:Performed By: #### PSASC #### [facility] [address] [place] [address] Dr. Franky Drew DatePayer CategoryPayerPolicy [id number] Social History DateTypeDetailFacilitySex Assigned At [employer] Other Evaluation note 03-12-2021 Note Date & BhhiGjdzTwncxhqw47-71-4738 Evaluation note* Encounter Date Diagnosis Assessment Notes Treatment Notes Treatment Clinical Notes Feb, Symptomatic varicose veins of left lower extremity (ICD-10 - I83.892) We reviewed the patient's full functional venous duplex study with him. There is no evidence of anyDVT. The patient does not have any reflux disease whatsoever in the bilateral lower extremity veins. Without a doubt this patient does have symptomatic varicose veins. They should be treated with weight loss exercise and compression stockings. Moisturizer therapy would also be good. We can also cons ider consider sclerotherapy injections in the future. I do not normally ever proceed with FMLA paperwork for symptomatic varicose veins without any venous hypertension and/or reflux. There are 70 million Americans who suffer from this. I recommend this patient seek out his PCP for advice with regards to FMLA paperwork. I will be happy to see the patient in the future for any consideration for sclerotherapy if his symptoms progress and/or his varicosities merit this approach. Weight loss would also benefit this patient as he is a BMI of 40. Weight loss would significantly improve leg symptoms in this patient. Feb,Varicose veins of left lower extremity with pain (ICD-10 - I83.812) [employer] Other History general Narrative - Reported Note Date & TypeNoteFacilityHistory general Narrative - Reported* Type Description Date Medical History Varicose veins Surgical Historyvein procedure (Dr. Jones) [employer] [facility] Other Summary Purpose Family History No Family History Records FoundNo Family History Records FoundNo Family History Records Found Advance Directives No Advanced Directives Records FoundNo Advanced Directives Records FoundNo Advanced Directives Records Found Additional Source Comments (unrecognized sect ion and content) No Status Records FoundNo Status Records FoundNo Status Records Found INFORMATION SOURCE (unrecogn ized section and content) DATE CREATED AUTHOR 02/03/2021 [facility] DATE CREATED AUTHOR AUTHOR'S ORGANIZ ATION 07/07/2021 [facility] DATE CREATED AUTHOR AUTHOR'S ORGANIZ ATION 07/10/2021 [facility] REASON FOR VISIT (unrecogniz ed section and [...] BE BASED ON THE PRIMARY CLINICAL RECORDS. [employer] provides no warranty or guarantee of the accuracy or completeness of information in this document.
[2025-04-04 11:13] LABS: Free T3 2.68 pg/mL (2.18-3.98); Thyroid Stimulating Hormone 2.786 uIU/mL (0.358-3.740)
== END 2025-04-04 09:56 | disposition home or self-care (01) ==
LOC: LAB 09:57
PROVIDERS: PCP Family Medicine; Visit Provider Family Medicine
DX: E03.9 Hypothyroidism, unspecified (principal)
CPT/HCPCS: 36415; 84436; 84443; 84481

== ENCOUNTER 2025-04-23 19:59 | Emergency (ER) | payer BC, SELFPAY ==
[2025-04-23 20:04] VITALS: BP 145/93; PULSE 108; TEMP 37.3; O2SAT 96; BMI 38.5
--- NOTE | 2025-04-23 20:42 | ED.GENADUL1 ---
HPI HPI - General Adult General Chief complaint: Extremity Problem, Nontraumatic Stated complaint: Left arm Pain and limited mobility Time Seen by Provider: 04/23/25 20:10 Source: patient and family Mode of arrival: walk-in Limitations: no limitations History of Present Illness HPI narrative: Patient is a 60-year-old male that presents with complaints of left arm pain for about a month now, worse with movement. The pain greatly worsened tonight when he was putting on his coat. He denies any specific injury but does do a lot of repetitive motions at his job. He is right-handed. 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 Related Data Home Medications ?Medication ?Instructions ?Recorded ?Confirmed lisinopril 20 mg tablet 20 mg PO DAILY 08/29/23 04/23/25 diclofenac sodium 75 mg 75 mg PO Q12H 04/23/25 04/23/25 tablet,delayed release glimepiride 4 mg tablet 4 mg PO BID 04/23/25 04/23/25 levothyroxine 50 mcg tablet 50 mcg PO DAILY 04/23/25 04/23/25 metformin 500 mg tablet 500 mg PO BID 04/23/25 04/23/25 sitagliptin phosphate 100 mg 100 mg PO DAILY 04/23/25 04/23/25 tablet (Januvia) Allergies Allergy/AdvReac Type Severity Reaction Status Date / Time No Known Drug Allergies Allergy Verified 04/23/25 20:04 Review of Systems ROS Status of ROS 10 or more systems reviewed and unremarkable except as noted in history and below [facility] Medical History (Updated 04/23/25 @ 20:38 by SEAN Montemayor) HTN (hypertension) ?I10 - Essential (primary) hypertension (ICD-10) Social History (Updated 08/29/23 @ 18:10 by SEAN Rivera) Are you now , , , , never or living with a partner: Little interest or pleasure in doing things: not at all Feeling down, depressed, or hopeless: not at all Exam Narrative Exam Narrative: General: No distress, age-appropriate Skin: Warm, dry, no pallor. No rash. Head: Normocephalic, atraumatic. Neck: Supple, non-tender. Eye: Pupils are equal, round and EOMI. No scleral icterus. Ears, Nose, Mouth, and Throat: No nasal mucosal hypertrophy. Oral mucosa is moist, no posterior oropharynx erythema, uvula is mid-line Cardiovascular: Regular Rate and Rhythm without murmur, gallop or rub. Respiratory: No accessory muscle use or respiratory distress. Musculoskeletal: Full ROM of all extremities, no calf or popliteal tenderness. Full left shoulder ROM as compared contralaterally. Pain cannot really reproduce on exam with palpation. Rotator cuff testing reveals pain and weakness with external rotation. He has full left elbow ROM. No biceps weakness, full bicep strength. No palpable or visible biceps defect. Neurological: A&O x4. No cranial nerve dysfunction observed. No truncal ataxia. Moves all extremities. Sensation intact. Psychiatric: Cooperative and interactive. Normal mood and affect. Constitutional Vital Signs, click to edit/add: Last Vital Signs Temp 99.1 F 04/23/25 20:04 Pulse 108 H 04/23/25 20:04 Resp 18 04/23/25 20:04 BP 145/93 H 04/23/25 20:04 Pulse Ox 96 04/23/25 20:04 O2 Del Method Room Air 04/23/25 20:04 Documenting provider has reviewed patient's vital signs: yes Course Vital Signs Vital signs: Vital Signs Temperature 99.1 F 04/23/25 20:04 Pulse Rate 108 H 04/23/25 20:04 Respiratory Rate 18 04/23/25 20:04 Blood Pressure 145/93 H 04/23/25 20:04 Pulse Oximetry 96 04/23/25 20:04 Oxygen Delivery Method Room Air 04/23/25 20:04 Temperature 99.1 F 04/23/25 20:04 Pulse Rate 108 H 04/23/25 20:04 Respiratory Rate 18 04/23/25 20:04 Blood Pressure 145/93 H 04/23/25 20:04 Pulse Oximetry 96 04/23/25 20:04 Oxygen Delivery Method Room Air 04/23/25 20:04 Medical Decision Making MDM Narrative Medical decision making narrative: This is a 60-year-old male that presented to the ED with complaints of a month of left upper arm pain, without injury, that he points to his mid humerus area. His pain increased tonight while putting on a jacket and he wanted to know what was going on. He does do repetitive motions with his shoulders at his job. He is right-handed. On exam there is no visible deformity, ecchymosis, erythema of the left upper arm or shoulder. Palpation of the biceps and shoulder cannot reproduce his pain. He has full left shoulder and elbow ROM. 5/5 biceps strength. Rotator cuff strength is 5/5 except for external rotation is 4/5 and also with pain. He has no previous injury or surgery to the shoulder. He is already taking diclofenac intermittently. X-ray considered but not indicated as patient did not have a traumatic injury and fracture or dislocation is a very low suspicion. I discussed with patient his pain is likely from soft tissue, possibly rotator cuff as he has some pain and weakness with external rotation. I recommended resting is much as possible with any overhead lifting or repetitive use with that shoulder. Using his diclofenac twice daily and not just as needed, and follow-up with Dr. Augustin to consider possible steroid injection, physical therapy, or MRI. I did offer Toradol here but patient declines. Patient is happy with recommendation and was discharged in stable condition, pain control, with plan for follow-up with his PCP. Differential Diagnosis Differential Diagnosis: Bicep tear, rotator cuff tear Discharge Plan Discharge Chief Complaint: Extremity Problem, Nontraumatic Clinical Impression: Rotator cuff tendinitis Patient Disposition: Home, Self-Care Time of Disposition Decision: 20:37 Condition: Good Mode of Transportation: Private Vehicle Prescriptions / Home Meds: No Action diclofenac sodium 75 mg tablet,delayed release (DR/EC) 75 mg PO Q12H glimepiride 4 mg tablet 4 mg PO BID levothyroxine 50 mcg tablet 50 mcg PO DAILY metformin 500 mg tablet 500 mg PO BID Januvia 100 mg tablet 100 mg PO DAILY lisinopril 20 mg tablet 20 mg PO DAILY Print Language: Estonian Instructions: Rotator Cuff Tendinitis (ED) Referrals: Jared Augustin MD [Primary Care Provider, Family Practice] - 1 week Discharge Date/Time: 04/23/25 20:49
--- OUTSIDE RECORDS SUMMARY | 2025-04-23 20:51 | XMS_ITS | CCD ---
Author Organization [facility] Care Team Providers Care Horse Rancher Name Role Phone DR JESÚS BEEBE Primary [...] Jaime Wooten Unavailable Problems Active Problems Problem ClassificationProblemDateDocumented DateEpisodic/ChronicOther upper respiratory disease (1 source)Other specified disorders of nose and nasal sinuses; Translations: [OTH SPEC D/O NOSE NASAL SINUSES]Onset: 57-80-9699KmjororlEzhmftfglmcb (3 sources)CONTACT W/AND (SUSP) EXPOS COVID-19; Translations: [CONTACT W/AND (SUSP) EXPOS COVID-19]Onset: 91-73-6821Tavvmxaxrplv (1 source)OTHER SPECIFIED COUGH; Translations: [OTHER SPECIFIED COUGH]Onset: 75-42-3721Ureme infection (1 source)COVID-19; Translations: [COVID-19]Onset: 07-09-2021 Past or Other Problems Problem ClassificationProblemDateDocumented DateEpisodic/ChronicUnclassified (1 source)CONTACT W/AND (SUSP) EXPOS COVID-19; Translations: [CONTACT W/AND (SUSP) EXPOS COVID-19]Onset: 38-35-2420Hdzrigoj veins of lower extremity (4 sources)Venous varices; Translations: [Varicose veins of left lower extremity with other complications]Onset: 03-12-2021 Resolved: 40-72-2227Dleepdog Results Test NameValueInterpretationReference RangeFacilityCovid-19 PCR (CVDTBH)on 16-49-8522FXAV-CoV-2 (COVID-19) RNA ABEL+probe Ql (Unsp spec)DetectedCritically abnormalNOT DETECTEDThe [facility] CenterComment on above:Result Comment: This test is not yet approved or cleared by the [place] FDA. When there are no FDA-approved or cleared tests available, and other criteria are met, FDA can make tests available under an emergency access mechanism called an Emergency Use Authorization (EUA). The EUA for this test is supported by the [place] of Health and Human Service's (HHS's) declaration [...] longer be used).Performed By: #### CVDTB #### [facility] [address] [place] [address] Dr. Franky OlguinCovid-19 PCR (CVDTB)on 65-18-5385NYAA-CoV-2 (COVID-19) RNA ABEL+probe Ql (Unsp spec)Not detectedNormalNOT DETECTEDThe [facility] Comment on above:Result Comment: This test is not yet approved or cleared by the [place] FDA. When there are no FDA-approved or cleared tests available, and other criteria are met, FDA can make tests available under an emergency access mechanism called an Emergency Use Authorization (EUA). The EUA for this test is supported by the [employer] of Health and Human Service's (HHS's) declaration [...] consistent with SARS-CoV-2.Performed By: #### CVDTBH #### [facility] [address] [place] [address] Dr. Franky Reyes AUTO DIFFon 58-82-5054XRLX #0.1 103/ulNormal0.0-0.1The [facility]itt[facility] Medical CenterComment on above:Performed By: #### CBC #### [facility] [address] [place] [address] Dr. Franky OlguinBasophils/100 WBC (Bld)0.8 %Normal0.2-2.0[facility] Comment on above:Performed By: #### CBC #### [facility] [address] [place] [address] Dr. Franky Tierney #0.2 103/ulNormal0.0-0.7The [facility] Medical CenterComment on above: Performed By: #### CBC #### [facility] [address] [place] [address] Dr. Farnky Vailosinophils/100 WBC (Bld)2.3 %Normal0.9-7.0The [facility] Comment on above:Performed By: #### CBC #### [facility] [address] [place] [address] Dr. Franky Vailrythrocyte distribution width (RBC) [Ratio]13.0 %Swxuiw06.0-15.0 The [facility] Ritt[facility] Medical CenterComment on above:Performed By: #### CBC #### [facility] [address] [place] [address] Dr. Franky OlguinHematocrit (Bld) [Volume fraction]44.9 %Jwnyvk30.0-54.0The [facility]itt[facility] Medical CenterComment on above:Performed By: #### CBC #### [facility] [address] [place] [address] Dr. Franky OlguinHemoglobin (Bld) [Mass/Vol]14.5 g/qCXaodog80.0-18.0The [facility] Medical CenterComment on above:Performed By: #### CBC #### [facility] [address] [place] [address] Dr. Franky Owens #0.03 10e3/ulNormal0.00-0.03The [facility] Medical CenterComment on above:Performed By: #### CBC #### [facility] [address] [place] [address] Dr. Franky Owens %0.4 %Normal0.0-0.5The [facility] Medical CenterComment on above: Performed By: #### CBC #### [facility] [address] [place] [address] Dr. Franky Everett #2.3 103/ulNormal1.2-3.8The [facility] Medical CenterComment on above:Performed By: #### CBC #### [facility] [address] [place] [address] Dr. Franky Chrishocytes/100 WBC (Bld)30.3 %Kpujow49.5-60.0The [facility] CenterComtrinity health [facility] on above:Performed By: #### CBC #### [facility] [address] [place] [address] Dr. Franky RamosUAL DIFF REQNONormalThe [facility] CenterComment on above: Performed By: #### CBC #### [facility] [address] [place] [address] Dr. Franky Barr (RBC) [Entitic mass]30.5 wrNribyo12.9-34.0The [facility] Medical CenterComment on above:Performed By: #### CBC #### [facility] [address] [place] [address] Dr. Franky Barr (RBC) [Mass/Vol]32.3 g/iVNedxps39.9-35.2The [facility] Medical CenterComment on above:Performed By: #### CBC #### [facility] [address] [place] [address] Dr. Franky Barr (RBC) [Entitic vol]94.5 fLCritically high80.0-94.0The [facility] Medical CenterComment on above:Performed By: #### CBC #### [facility] [address] [address] [address] Franky Coelho #0.6 103/ulNormal0.3-0.8The [facility]itt[facility] Medical CenterComment on above:Performed By: #### CBC #### [facility] [address] [place] [address] Dr. Franky Moyaocytes/100 WBC (Bld)8.2 %Normal1.7-12.0The [facility] Comment on above:Performed By: #### CBC #### [facility] [address] [place] [address] Dr. Franky Montgomery #4.5 103/ulNormal1.4-6.5The [facility] Medical CenterComment on above:Performed By: #### CBC #### [facility] [address] [place] [address] Dr. Franky Saavedrautrophils/100 WBC (Bld)58.0 %Jlpzqb50.0-75.0The [facility] Medical CenterComment on above:Performed By: #### CBC #### [facility] [address] [place] [address] Dr. Franky Stephenslet mean volume (Bld) [Entitic vol]9.9 fLNormal9.5-13.5The [facility] Medical CenterComment on above:Performed By: #### CBC #### [facility] [address] [place] [address] Dr. Franky OlguinPLT199 103/fgPvjhcl941-290Opy [facility] CenterComment on above: Performed By: #### CBC #### [facility] [address] [place] [address] Dr. Franky OlguinRBC4.75 106/ulNormal4.70-6.10The [facility] Medical CenterComment on above:Performed By: #### CBC #### [facility] [address] [place] [address] Dr. Franky OlguinWBC7.7 103/ulNormal4.0-11.0The [facility] Medical CenterComment on above: Performed By: #### CBC #### [facility] [address] [address] [address] Franky Orlando THYROXINE INDEX T7on 46-45-5884KQT6.92NoAshtabula County Medical CenterComment on above:Performed By: #### LIPID, CMP, T7, TSH #### [facility] [address] [address] [address] Franky OlguinT3U30.0 %Dvraso87.5-40.5The [facility] Medical CenterComment on above: Performed By: #### LIPID, CMP, T7, TSH #### [facility] [address] [address] [address] Franky OlguinT4 [Mass/Vol]6.40 ug/dLNormal5.53-11.00The [facility] Comment on above:Performed By: #### LIPID, CMP, T7, TSH #### [facility] [address] [address] [address] Franky OlguinGLYCOHEMOGLOBIN A1Con 06-97-5104WEI RECOMMENDATIONADA THERAPEUTIC TARGET 6.0 - 7.0 ACTION SUGGESTED > 7.0NoAshtabula County Medical CenterComment on above:Performed By: #### A1C #### [facility] [address] [address] [address] Franky OlguinGlucose [Mass/Vol]151 mg/dLNoAshtabula County Medical CenterComment on above:Performed By: #### A1C #### [facility] [address] [address] [address] Franky OlguinHbA1c (Bld) [Mass fraction]6.9 %Critically high<=6.0The [facility] Medical CenterComment on above:Performed By: #### A1C #### [facility] [address] [address] [address] Franky OlguinLIPID PROFILEon 07-63-0481NAPZ-HDL RATIO NORMSEE BELOWSelect Medical Specialty Hospital - YoungstownComment on above:Result Comment: 3.3 - 4.4 LOW RISK 4.4 - 7.1 AVERAGE RISK 7.1 - 11.0 MODERATE RISK >11.0 HIGH RISKPerformed By: #### LIPID, CMP, T7, TSH #### [facility] [address] [address] [address] Franky OlguinCholesterol [Mass/Vol]167 mg/dLNormal<=200[facility] Comment on above:Performed By: #### LIPID, CMP, T7, TSH #### [facility] [address] [address] [address] Franky OlguinCholesterol in HDL [Mass/Vol]37 mg/dLSelect Medical Specialty Hospital - [place] Comment on above:Performed By: #### LIPID, CMP, T7, TSH #### [facility] [address] [address] [address] Franky Bridgesesterol in LDL [Mass/Vol]93.4 mg/dLSelect Medical Specialty Hospital - YoungstownComment on above:Performed By: #### LIPID, CMP, T7, TSH #### [facility] [address] [place] [address] Dr. Franky Patel.total/Cholesterol in HDL [Mass ratio]4.5 {ratio} NormalThe [facility] Medical CenterComment on above:Performed By: #### LIPID, CMP, T7, TSH #### [facility] [address] [address] [address] Franky Friedman NORMAL> or = 60 mg/dl - LOW CARDIOVASCULAR RISK <40 mg/dl - HIGH CARDIOVASCULAR RISKSelect Medical Specialty Hospital - YoungstownComtrinity health [place] on above:Performed By: #### LIPID, CMP, T7, TSH #### [facility] [address] [address] [address] Franky OlguinLDL CALC NORMALSEE BELOWSelect Medical Specialty Hospital - YoungstownComment on above:Result Comment: <100 mg/dl OPTIMAL 100 - 129 mg/dl NEAR OR ABOVE OPTIMAL 130 - 159 mg/dl BORDERLINE HIGH 160 - 189 mg/dl HIGH >190 mg/dl VERY HIGH Performed By: #### LIPID, CMP, T7, TSH #### [facility] [address] [address] [address] Franky OlguinTriglyceride [Mass/Vol]183 mg/dLCritically high<=150The [facility] Medical CenterComment on above:Performed By: #### LIPID, CMP, T7, TSH #### [facility] [address] [address] [address] Franky CarverLDL CALC36.6 mg/dLNormalThe [facility] Medical CenterComment on above: Performed By: #### LIPID, CMP, T7, TSH #### [facility] [address] [address] [address] Franky Staton 14(COMP METB)on 16-30-0047Ufhqdon [Mass/Vol]3.9 g/dLNormal 3.5-5.0The [facility] Medical CenterComment on above:Performed By: #### LIPID, CMP, T7, TSH #### [facility] [address] [place] [address] Dr. Franky OlguinAlbumin/Globulin [Mass ratio]1.0 {ratio}NormalThe [facility] Medical CenterComment on above:Performed By: #### LIPID, CMP, T7, TSH #### [facility] [address] [place] [address] Dr. Franky Ngo [Catalytic activity/Vol]68 U/EXqdjoi92-121Wkn [facility] CenterComment on above:Performed By: #### LIPID, CMP, T7, TSH #### [facility] [address] [place] [address] Dr. Franky Marsh [Catalytic activity/Vol]89 U/LCritically dmtf62-57Tkq [facility] CenterComment on above:Performed By: #### LIPID, CMP, T7, TSH #### [facility] [address] [place] [address] Dr. Franky Silveira gap [Moles/Vol]13.1 mmol/LNormalThe [facility] on above:Performed By: #### LIPID, CMP, T7, TSH #### [facility] [address] [place] [address] Dr. Franky Hyman [Catalytic activity/Vol]56 U/GFieepg75-12Lkr [facility] CenterComment on above:Performed By: #### LIPID, CMP, T7, TSH #### [facility] [address] [place] [address] Dr. Yilan ChangBilirubin [Mass/Vol]0.7 mg/dLNormal0.2-1.3TMagruder Memorial Hospital Comment on above:Performed By: #### LIPID, CMP, T7, TSH #### [facility] [address] [address] [address] Franky OlguinCalcium [Mass/Vol]9.5 mg/dLNormal8.4-10.2The [facility] Comment on above:Performed By: #### LIPID, CMP, T7, TSH #### [facility] [address] [address] [address] Franky OlguinChloride [Moles/Vol]104 mmol/MUthgip78-114EvaGlenbeigh Hospital Comment on above:Performed By: #### LIPID, CMP, T7, TSH #### [facility] [address] [address] [address] Franky OlguinCO2 [Moles/Vol]25.1 mmol/AJgtffh29.0-30.0The [facility] Comment on above:Performed By: #### LIPID, CMP, T7, TSH #### [facility] [address] [address] [address] Franky OlguinCreatinine [Mass/Vol]1.19 mg/dLNormal0.66-1.25The [facility] Medical CenterComment on above:Performed By: #### LIPID, CMP, T7, TSH #### [facility] [address] [address] [address] Franky VailGFR-AF DUTCH>60Normal>=60The [facility] Medical CenterComment on above:Performed By: #### LIPID, CMP, T7, TSH #### [facility] [address] [address] [address] Franky VailGFR-NON AF DUTCH>60Normal>=60The [facility] CenterComment on above:Performed By: #### LIPID, CMP, T7, TSH #### [facility] [address] [address] [address] Franky OlguinGlobulin (S) [Mass/Vol]4.0 g/dLNormalThe [facility] CenterComment on above:Performed By: #### LIPID, CMP, T7, TSH #### [facility] [address] [address] [address] Franky OlguinGlucose [Mass/Vol]133 mg/dLCritically lcbd03-465Kcb [facility] CenterComment on above:Performed By: #### LIPID, CMP, T7, TSH #### [facility] [address] [place] [address] Dr. Franky OlguinPotassium [Moles/Vol]4.2 mmol/LNormal3.4-5.0The [facility] Comment on above:Performed By: #### LIPID, CMP, T7, TSH #### [facility] [address] [place] [address] Dr. Franky OlguinProtein [Mass/Vol]7.9 g/dLNormal6.1-8.2[facility] Comment on above:Performed By: #### LIPID, CMP, T7, TSH #### [facility] [address] [place] [address] Dr. Franky OlguinSodium [Moles/Vol]138 mmol/HMbvorj566-632Dge [facility] Comment on above:Performed By: #### LIPID, CMP, T7, TSH #### [facility] [address] [place] [address] Dr. Franky OlguinUrea nitrogen [Mass/Vol]19.0 mg/dLNormal9.0-20.0[facility] HospitalComment on above:Performed By: #### LIPID, CMP, T7, TSH #### [facility] [address] [place] [address] Dr. Franky OlguinUrea nitrogen/Creatinine [Mass ratio]16.0 mg/mgNormalThe [facility] CenterComment on above:Performed By: #### LIPID, CMP, T7, TSH #### [facility] [address] [place] [address] Dr. Franky Dunbar 73-37-6365CQJ6.571 uIU/mLNormal0.470-4.680The [facility] CenterComment on above:Performed By: #### LIPID, CMP, T7, TSH #### [facility] [address] [place], [place] [address] Dr. Franky Romo [facility]ermont HospitalComment on above: Result Comment: <0.34 UIU/ml HYPERTHYROID 0.34-5.60 UIU/ml EUTHYROID >5.60 UIU/ml HYPOTHYROIDPerformed By: #### LIPID, CMP, T7, TSH #### [facility] [id number] Franky Kraft venous duplex LE LTon 27-71-0651FW venous duplex LE LT [facility] [place] [address] [place] [address] Ultrasound Report Signed Patient: Holden hCaney MR#: [id number] [birth year] : 1965 Acct:[id number] Age/Sex: 56 / M ADM Date: 03/12/21 Loc: [facility] Room: Type: [facility] Attending Dr: Jaime Wooten MD Ordering Provider: [...] Jaime Wooten MD03/18/2021 3:20 PM Dictation Location: [place] [address] Tech: Kamala Wells Transcribed By: ABRAHAN 03/18/21 1520 Dictated By: Jaime Wooten MD 03/18/21 1518 Signed By: 03/18/21 1520[facility] for Release of Medical Recordson 85-18-0447Woqw for Release of Medical Records [id number]#1.00CD:[address] [place] [address] [id number]#1.00CD:[address] [facility] 11-29-9701Nbccy [id number]#1.00CD:[address] [place] [address] 59-23-6129Agrddnt [id number]#1.00CD:[address] [place], [place] [id number]#1.00CD:[address] [place], [place] [address]Ambulatory Clinical Summaryon 58-60-3015Lyjxbcucsc Clinical Summary{29-c9-wp-8f-57-51-95-dp-ai-15-94-8i-ff-57-4e-e7}CD:806671MnjcnwLjmdhjGood Samaritan Hospital 39-74-0580Xlrjb [id number]#1.00CD:[address] [place], [place] [address]General Surgery Office/Clinic Noteon 14-37-8229Emupmfl Surgery Office/Clinic NoteHPI Staff New pt, self [...] by Dr. Jones. He has been using oiiw-uru-ycgtmkr hose for several years now and he [...] I did also tel (more content not included)...[facility]orial [facility] SystemComment on above:Result Comment: Electronically Signed By: ERICA CARRERA, Cecilia Zavala\Date and Time Signed: 12/17/20 13:46 EDTPatient Correspondenceon 50-36-3788Mxnsrhr Correspondence [id number]#1.00CD:[address] [place], [place] [address]Retail - Clinical Noteon 64-30-2480Prtepz - Clinical Note [id number]#1.00CD:[address] [place] [address] Vital Signs Date TimeVital SignValuePerforming FrnfqseqyDtkmuopc14-18-1468 13:30-0400Body ktpawj166.42 cmJaime Wooten Other amaysim Other 09-30-2021 13:30-0400Body mass index (BMI) [Ratio] 40.63 kg/k7JldmtymJaime Wooten Other amaysim Other 09-30-2021 13:30-0400Body tzpkei217.71 kgMaayde Wooten Other amaysim Other 09-30-2021 13:30-0400Diastolic blood zbimlfnv935 mm[Hg]Jaime Wooten Other amaysim Other 09-30-2021 13:30-0400Systolic blood mm[Hg] Jaime Wooten Other amaysim Other Encounters Encounter DateEncounter TypeCare ProviderFacilityStart: 07-07-2021 End: 80-99-1643rpneczgnyvDJ JESÚS HOYFacility:B4Yltoe: 05-13-2021 End: 43-91-7100vebrfwwmbrFZ JESÚS HOYFacility:P8Xawuq: 85-72-8062Gxlyduawh for general adult medical examination without abnormal findingsDR JESÚS Dunbar [facility]Start: 03-25-2021 End: 62-22-8845ollhcanhxuAR JESÚS Warnercility:O4Qvrgk: 03-25-2021 End: 58-87-3200Yxwmusrxi for general adult medical examination without abnormal findingsDR JESÚS Burtonity:B7Wxrnx: 53-44-0288Dikuzz outpatient visit 15 minutesMatthew [facility] Procedures DateProcedureProcedure DetailPerforming ClinicianStart: 00-62-7342CVS screening DR JESÚS Mleo on above:Performed By: #### PSASC #### [facility] [address] [place] [address] Dr. Franky Drew DatePayer CategoryPayerPolicy [id number] Social History DateTypeDetailFacilitySex Assigned At [employer] Other Evaluation note 03-12-2021 Note Date & FqcyVkkgNbjddype23-75-8048 Evaluation note* Encounter Date Diagnosis Assessment Notes [...] lower extremity with pain (ICD-10 - I83.812) amaysim Other History general Narrative - Reported Note Date & TypeNoteFacilityHistory general Narrative - Reported* Type Description Date Medical History Varicose veins Surgical Historyvein procedure (Dr. Jones) amaysim Other Summary Purpose Family History No Family History Records FoundNo Family History Records FoundNo Family History Records Found Advance Directives No Advanced Directives Records FoundNo Advanced Directives Records FoundNo Advanced Directives Records Found Additional Source Comments (unrecognized sect ion and content) No Status Records FoundNo Status Records FoundNo Status Records Found INFORMATION SOURCE (unrecogn ized section and content) DATE CREATED AUTHOR 02/03/2021 [facility] DATE CREATED AUTHOR AUTHOR'S ORGANIZ ATION 07/07/2021 [facility] DATE CREATED AUTHOR AUTHOR'S ORGANIZ ATION 07/10/2021 [facility] REASON FOR VISIT (unrecogniz ed section and [...] BE BASED ON THE PRIMARY CLINICAL RECORDS. [employer] provides no warranty or guarantee of the accuracy or completeness of information in this document.
== END 2025-04-23 20:49 | disposition home or self-care (01) ==
LOC: ER 20:50
PROVIDERS: Emergency Provider Internal Medicine; PCP Family Medicine
DX: M77.8 Other enthesopathies, not elsewhere classified (principal)
CPT/HCPCS: 99281